=== PATIENT | female | born 1970 ===

== ENCOUNTER 2024-06-18 06:16 | Day surgery (SDC) | payer OTHER, SELFPAY ==
[2024-06-18 07:07] VITALS: BP 113/55
[2024-06-18 07:18] VITALS: BMI 21.0
[2024-06-18 08:10] VITALS: BP 91/50
[2024-06-18 08:25] VITALS: BP 99/53
[2024-06-18 08:40] VITALS: BP 94/50
== END 2024-06-18 08:48 | disposition home or self-care (01) ==
LOC: GI 06:16
PROVIDERS: ATTENDING PHYSICIAN Internal Medicine Gastroenterology
DX: Z12.11 Encounter for screening for malignant neoplasm of colon (principal); D12.5 Benign neoplasm of sigmoid colon; Z86.010 Personal history of colon polyps; Z98.890 Other specified postprocedural states
CPT/HCPCS: 45331; 88305

== ENCOUNTER 2025-08-18 21:04 | Inpatient (IN) | payer OTHER, SELFPAY ==
[2025-08-18 15:31] VITALS: BMI 18.5
[2025-08-18 15:46] LABS: Hematocrit 38.4 % (37.0-47.0); Hemoglobin 13.7 g/dL (12.0-16.0); Mean Corp Hgb Conc. 35.7 g/dL (33.0-37.0); Mean Corpuscular Volume 96.7 fL (81.0-99.0); Nucleated Red Blood Cells % 0 %; Platelet Count 266 10^3/uL (130-400); Red Cell Dist. Width 12.5 % (11.5-14.5)
[2025-08-18 16:02] LABS: ALT (SGPT) 16 U/L (0-35); AST (SGOT) 18 U/L (14-36); Albumin 3.9 g/dl (3.5-5.0); Alkaline Phosphatase 61 U/L (38-126); Calcium 9.6 mg/dl (8.4-10.2); Carbon Dioxide 23 mmol/L (22-30); Chloride 96 mmol/L (98-107); Glucose 126 mg/dl (70-99); Lipase 41 U/L (23-300); Potassium 4.2 mmol/L (3.5-5.1); Sodium 133 mmol/L (135-145); Total Protein 7.0 g/dl (6.3-8.2); eGFR > 60.00
[2025-08-18 16:12] LABS: Blood Urea Nitrogen 14 mg/dl (7-17)
[2025-08-18] MEDS: TORADOL 15 MG IV (16:55)
[2025-08-18] MEDS: NSS 1000 IV ×2 (17:00→22:39)
[2025-08-18] MEDS: ZOFRAN 4 MG IV (17:01)
[2025-08-18 17:06] VITALS: BP 136/77
[2025-08-18 18:09] VITALS: BP 119/64
--- NOTE | 2025-08-18 18:39 | ED.GENMED ---
History of Present Illness
<Danica Savage PA-C - Last Filed: 08/19/25 11:11>
General
Chief Complaint: Abdominal Symptoms
Source: patient
Exam Limitations: none
Time Seen by Provider: 08/18/25 16:41
Nursing documentation reviewed up to this point in time: agreed with
History of Present Illness
History of Present Illness:
Patient is a healthy 54-year-old female who presents to the emergency department for evaluation of 4 days of abdominal pain associated with nausea and vomiting. Symptoms began Saturday night with nausea, dry heaves, diffuse abdominal pain, and
fever. She states that over the weekend she had a temp of up to 102 however this has since resolved. She describes persistent nausea and dry heaves, unable to keep any food/liquid down.
While fever has improved, patient reports persistent abdominal pain throughout her entire abdomen. This morning, she started with a few episodes of nonbloody diarrhea. She has had very little appetite over the past few days.
She denies any urinary symptoms. No chest pain or shortness of breath.
Patient initially thought she had a viral GI illness however given severity and persistence of symptoms she presented to the emergency department for further evaluation.
Review of Systems
<Danica Savage PA-C - Last Filed: 08/19/25 11:11>
Review of Systems
Allergies reviewed?: Yes
All Other Systems: ROS reviewed and negative except as documented in HPI and ROS
Phy Exam
<Danica Savage PA-C - Last Filed: 08/19/25 11:11>
Physical Exam
Physical Exam:
Vitals: Patient's vital signs are stable. Afebrile
General: Patient is moderately uncomfortable appearing due to pain. Nontoxic
Skin: Warm and dry, no rashes or lesions
Head: Normocephalic, atraumatic
Eyes: Sclera nonicteric.
Throat: Protecting airway
Neck: Normal ROM, no cervical spine tenderness, no meningismus
Cardiac: Regular rate and rhythm, no murmurs.
Pulm: Normal respiratory effort, no wheezes, rales, rhonchi heard on exam
Abdomen: Abdomen soft. Diffuse tenderness throughout abdomen with voluntary guarding. No rebound tenderness
Extremities: No evidence of cyanosis or edema
Neuro: AAOx3. Grossly intact
Psychiatric: Normal affect.
Course
<Danica Savage PA-C - Last Filed: 08/19/25 11:11>
Orders/Labs/Results
Orders:
Orders
08/18/25 Breakfast
NPO
Allow oral meds: No
Allow clear liquids: Sips of Clears
NPO with Ice Chips: Yes
08/18/25 15:41
Complete Blood Count/With Diff Urgent
Comprehensive Metabolic Panel Urgent
Lipase Urgent
08/18/25 16:50
CT Abd/pelvis W Iv Cont Urgent
Comment:
Reason For Exam: Abdominal pain, N/V
0.9% Sodium Chloride 1000 ml [Nss] 1,000 ml IV BOLUS
Ketorolac [Toradol] 15 mg IV NOW STA
Ondansetron Injectable [Zofran] 4 mg IV NOW STA
08/18/25 18:57
Lactic Acid Q4H
Comment: CANCEL 2nd LACTIC ACID IF 1st LACTIC ACID IS LESS THAN 2
08/18/25 19:10
Urinalysis Reflex To Culture Urgent
Date Specimen was Collected: 08/18/25
Time Specimen was Collected: 19:03
Urine Microscopic Reflex Cult Urgent
08/18/25 19:49
Morphine Sulfate 2 mg IV NOW STA
08/18/25 20:18
Norovirus by PCR Urgent
IQRA Source: Feces/Stool
Specimen Description:
Stool Culture Urgent
IQRA Source: Feces/Stool
Specimen Description:
08/18/25 20:37
Admit/Transfer Patient As Directed
Co-Sign Provider:
Level of Care: Inpatient admission
Assign to:: Medical/Surgical
Physician / Group: Rudy
Diagnosis: Enteritis / Ileus
Reason for Hospitalization: IVFs
Expected length of stay greater than two midnights?: Yes
ELOS- Estimated Length of Stay in days: 3
I certify the patient meets the requirements for IP care: Yes
PRN Pain Medication Management As Directed
May give lesser potent ordered pain med per pt: Yes
preference::
Protocol:: Medication orders for pain may be administered in a
manner that supports deferring to patient preference
when the pt is:
- Requesting an ordered lesser potent pain medication.
Least to most potent pain medications are defined
as: acetaminophen < NSAID < tramadol < opioids
(morphine, oxycodone, hydromorphone).
- Requesting a lesser dose of the same medication IF
ORDERED.
- Requesting a less intrusive route of administration
if both routes are prescribed by the provider (PO <
IV).
08/18/25 20:38
Code Status As Directed
Resuscitation Status: Full Code
08/18/25 21:49
0.9% Sodium Chloride 1000 ml [Nss] 1,000 ml IV 125 mls/hr
Acetaminophen [Tylenol] 650 mg PO Q4HPRN PRN
Ketorolac [Toradol] 10 mg IV Q6HPRN PRN
Morphine Sulfate 2 mg IV Q4HPRN PRN
Ondansetron Injectable [Zofran] 4 mg IV Q6HPRN PRN
08/18/25 21:49
Activity As Directed
Activity Level: Out of Bed-Early Mobility
With Assistance
Bladder Scan As Directed
Follow Bladder Retention/Intermittent Cath Algorithm?: Yes
PRN if no void in __ hours: 6
Frequency: Per Retention Algorithm
If Bladder Scan Result >: 400
then:: Straight cath
I&O [Intake/ Output] As Directed
Frequency: q12h
Straight Cath As Directed
Frequency: Per Retention Algorithm
Additional Instructions: straight cath as needed per acute urinary retention algorithm for 24 hrs
Additional Instructions: for bladder scan greater than 400 mL
DX Deep Vein Thrombosis Video Routine
08/19/25 06:37
Basic Metabolic Panel IN AM
Complete Blood Count/No Diff IN AM
08/19/25 18:00
Enoxaparin Sodium [Lovenox] 40 mg SC QPM
Abnormal Lab Results
08/18/25 08/18/25
15:41 19:10
RBC 3.97 L 10^6/uL
(4.20-5.40)
MCH 34.5 H pg
(27.0-31.0)
Absolute Neuts (auto) 7.2 H 10^3/uL
(1.4-6.5)
Absolute Lymphs (auto) 0.6 L 10^3/uL
(1.2-3.4)
Neutrophils % 85.3 H %
(42.2-75.2)
Lymphocytes % 6.7 L %
(20.5-51.1)
Sodium 133 L mmol/L
(135-145)
Chloride 96 L mmol/L
(98-107)
Creatinine 0.5 L mg/dL
(0.6-1.0)
Glucose 126 H mg/dl
(70-99)
Urine Ketones 3+ A
(Negative)
Urine Bacteria (Reflex) Few A
(Negative)
Urine Albumin (Reflex) 3+ A
(Neg - Trace)
08/18/25 15:41
08/18/25 15:41
Vital Signs
Initial and Last Documented VS:
Initial Vital Signs
Temp Pulse Resp Pulse Ox
98.3 F 77 16 99
08/18/25 15:32 08/18/25 15:32 08/18/25 15:32 08/18/25 15:32
Last Documented Vital Signs
Temp Pulse Resp BP Pulse Ox
98.6 F 58 16 125/64 98
08/19/25 07:00 08/19/25 07:00 08/19/25 07:00 08/19/25 07:00 08/19/25 07:00
<Merced Witt, DO - Last Filed: 08/18/25 19:54>
Orders/Labs/Results
Orders:
Orders
08/18/25 Breakfast
NPO
Allow oral meds: No
Allow clear liquids: Sips of Clears
NPO with Ice Chips: Yes
08/18/25 15:41
Complete Blood Count/With Diff Urgent
Comprehensive Metabolic Panel Urgent
Lipase Urgent
08/18/25 16:50
CT Abd/pelvis W Iv Cont Urgent
Comment:
Reason For Exam: Abdominal pain, N/V
0.9% Sodium Chloride 1000 ml [Nss] 1,000 ml IV BOLUS
Ketorolac [Toradol] 15 mg IV NOW STA
Ondansetron Injectable [Zofran] 4 mg IV NOW STA
08/18/25 18:57
Lactic Acid Q4H
Comment: CANCEL 2nd LACTIC ACID IF 1st LACTIC ACID IS LESS THAN 2
08/18/25 19:10
Urinalysis Reflex To Culture Urgent
Date Specimen was Collected: 08/18/25
Time Specimen was Collected: 19:03
Urine Microscopic Reflex Cult Urgent
08/18/25 19:49
Morphine Sulfate 2 mg IV NOW STA
08/18/25 20:18
Norovirus by PCR Urgent
IQRA Source: Feces/Stool
Specimen Description:
Stool Culture Urgent
IQRA Source: Feces/Stool
Specimen Description:
08/18/25 20:37
Admit/Transfer Patient As Directed
Co-Sign Provider:
Level of Care: Inpatient admission
Assign to:: Medical/Surgical
Physician / Group: Rudy
Diagnosis: Enteritis / Ileus
Reason for Hospitalization: IVFs
Expected length of stay greater than two midnights?: Yes
ELOS- Estimated Length of Stay in days: 3
I certify the patient meets the requirements for IP care: Yes
PRN Pain Medication Management As Directed
May give lesser potent ordered pain med per pt: Yes
preference::
Protocol:: Medication orders for pain may be administered in a
manner that supports deferring to patient preference
when the pt is:
- Requesting an ordered lesser potent pain medication.
Least to most potent pain medications are defined
as: acetaminophen < NSAID < tramadol < opioids
(morphine, oxycodone, hydromorphone).
- Requesting a lesser dose of the same medication IF
ORDERED.
- Requesting a less intrusive route of administration
if both routes are prescribed by the provider (PO <
IV).
08/18/25 20:38
Code Status As Directed
Resuscitation Status: Full Code
08/18/25 21:49
0.9% Sodium Chloride 1000 ml [Nss] 1,000 ml IV 125 mls/hr
Acetaminophen [Tylenol] 650 mg PO Q4HPRN PRN
Ketorolac [Toradol] 10 mg IV Q6HPRN PRN
Morphine Sulfate 2 mg IV Q4HPRN PRN
Ondansetron Injectable [Zofran] 4 mg IV Q6HPRN PRN
08/18/25 21:49
Activity As Directed
Activity Level: Out of Bed-Early Mobility
With Assistance
Bladder Scan As Directed
Follow Bladder Retention/Intermittent Cath Algorithm?: Yes
PRN if no void in __ hours: 6
Frequency: Per Retention Algorithm
If Bladder Scan Result >: 400
then:: Straight cath
I&O [Intake/ Output] As Directed
Frequency: q12h
Straight Cath As Directed
Frequency: Per Retention Algorithm
Additional Instructions: straight cath as needed per acute urinary retention algorithm for 24 hrs
Additional Instructions: for bladder scan greater than 400 mL
DX Deep Vein Thrombosis Video Routine
08/19/25 06:37
Basic Metabolic Panel IN AM
Complete Blood Count/No Diff IN AM
08/19/25 18:00
Enoxaparin Sodium [Lovenox] 40 mg SC QPM
Abnormal Lab Results
08/18/25 08/18/25
15:41 19:10
RBC 3.97 L 10^6/uL
(4.20-5.40)
MCH 34.5 H pg
(27.0-31.0)
Absolute Neuts (auto) 7.2 H 10^3/uL
(1.4-6.5)
Absolute Lymphs (auto) 0.6 L 10^3/uL
(1.2-3.4)
Neutrophils % 85.3 H %
(42.2-75.2)
Lymphocytes % 6.7 L %
(20.5-51.1)
Sodium 133 L mmol/L
(135-145)
Chloride 96 L mmol/L
(98-107)
Creatinine 0.5 L mg/dL
(0.6-1.0)
Glucose 126 H mg/dl
(70-99)
Urine Ketones 3+ A
(Negative)
Urine Bacteria (Reflex) Few A
(Negative)
Urine Albumin (Reflex) 3+ A
(Neg - Trace)
08/18/25 15:41
08/18/25 15:41
Vital Signs
Initial and Last Documented VS:
Initial Vital Signs
Temp Pulse Resp Pulse Ox
98.3 F 77 16 99
08/18/25 15:32 08/18/25 15:32 08/18/25 15:32 08/18/25 15:32
Last Documented Vital Signs
Temp Pulse Resp BP Pulse Ox
98.6 F 58 16 125/64 98
08/19/25 07:00 08/19/25 07:00 08/19/25 07:00 08/19/25 07:00 08/19/25 07:00
<Danica Savage PA-C - Last Filed: 08/19/25 11:11>
MDM/Problems Addressed
Differential Diagnosis Includes:
Not limited to: Viral gastroenteritis, diverticulitis, appendicitis, acute cholecystitis, pyelonephritis, bowel obstruction, etc.
MDM/Problems Addressed:
54-year-old female presenting with four days of diffuse abdominal pain associated with nausea, vomiting, fevers at home. Unable to tolerate PO intake. She did begin with diarrhea this morning. No urinary symptoms. Vitals and physical exam as above.
Patient actively retching on my initial evaluation and appears uncomfortable. Her abdomen is soft with minimal distention and somewhat diffuse tenderness. Cardio/pulmonary assessment unremarkable.
Differential broad. Given history of fever � concern for possible intra-abdominal infectious process. Also considered viral gastroenteritis or food poisoning. Less likely bowel obstruction.
ED plan: labs, UA, CT scan abdomen/pelvis with IV contrast. Patient unable to tolerate PO contrast at this time. Will treat pain, give IV fluids and Zofran and reassess.
Update: labs without clinically significant abnormalities. No leukocytosis. Chemistry unremarkable. CT scan with evidence of small bowel dilation/inflammation possibly inflammatory, infectious, ischemic in nature with possible ileus or developing
SBO.
With history of fever � most suspicious for likely infectious etiology, less likely ischemic, however, will add lactic acid level.
I did discuss with general surgery. Given patient�s persistent level of discomfort, as well as inability to tolerate PO intake � will admit to hospitalist for further management. Patient has been afebrile here without leukocytosis, will hold
antibiotics at this time. Patient accepted to hospitalist service in stable condition.
Chronic conditions affecting care:
N/A
Acute Exacerbation and/or Progression of Chronic Illness:
N/A
<Danica Savage PA-C - Last Filed: 08/19/25 11:11>
*Radiology
Radiology exam reviewed: radiology read reviewed
*Pulse Oximetry
SaO2: 99
Oxygen Mode of Delivery: Room air
Patient hypoxic: no
*EKG
Interpreted by ED Provider?: NA
*Joiners Supervisor Interpretation
Rate: Joiners Supervisor- N/A
*Critical Care Note
Total Time (30-74mins, 75-104mins- exclusive of procedures): Not Applicable
<Danica Savage PA-C - Last Filed: 08/19/25 11:11>
Patient Management
Discussion with other providers: Hospitalist and Internet Systems Administrator (Case discussed with general surgery)
ED Attending Note
<Danica Savage PA-C - Last Filed: 08/19/25 11:11>
-
Portions of this chart may have been created with voice recognition software.� Occasional wrong word or��sound alike� substitutions may have occurred due to the inherent limitations of voice recognition software.
<Merced Witt DO - Last Filed: 08/18/25 19:54>
ED Attending Note
Patient seen and examined by attending physician: Yes
I performed the substantive portion of visit, reviewed & personally made and approve the management plan that is documented in note by myself or TARAH.: Yes
I performed a history and physical exam of patient and discussed management with resident, I reviewed resident's note and agree with documented findings and plan of care.: Yes
ED Attending Note:
54-year-old female presenting to the emergency department for abdominal pain and vomiting. Patient reports symptoms started about 5 days ago with nausea and vomiting. Notes diffuse tenderness, and diarrhea started today. Reports no significant
abdominal surgical history, however does report remote history of bowel obstruction that went away on its own. At onset of symptoms, had fever which is since resolved. Vital signs are normal.
On exam, patient is nontoxic, no acute distress, however is uncomfortable secondary to pain. Generalized tenderness to the abdomen, nonfocal with minimal distention. Patient initially seen by physician food and beverage assistant, appropriate workup with laboratory
analysis and CT abdominal imaging. CT is concerning for several loops of abnormal small bowel with wall thickening concerning for inflammation versus ischemia versus infection versus developing obstruction. Did discuss with surgery, recommending
to hold antibiotics, admit to hospitalist for continued abdominal exams and monitoring as well as pain control. On my assessment, patient still having pain, will administer morphine. No rigidity to abdomen, again nontoxic with lower suspicion for
ischemic bowel. Otherwise hemodynamically stable
Discharge Plan
Departure
Patient Disposition: Admit
Date of Disposition: 08/18/25
Time of Disposition: 19:44
Presentation/result/management discussed w/ accepting MD/DO: Hospitalist
Discharge Problem:
Abdominal pain
Interventions
Interventions:
*Risk Screen - Suicide Last Done: 08/18/25 21:59
*General Assessment Last Done: 08/18/25 15:32
*Neglect/Abuse Screening Last Done: 08/18/25 15:32
*ED- Fall Risk Assessment Last Done: 08/18/25 17:09
*ED COVID-19 Vaccine History Last Done: 08/18/25 21:59
*Nursing Disposition Last Done: 08/18/25 22:02
CA-Iahlqf-Pvijnmajyb Assessment Last Done: 08/18/25 17:08
[2025-08-18 19:20] VITALS: BP 116/63
[2025-08-18 19:24] LABS: Urine Character Clear (Clear)
[2025-08-18 19:36] LABS: Urine Red Blood Cell 0-2 /HPF (0-2); Urine Squamous Cell 0-2 /LPF (Few); Urine White Cell 0-2 /HPF (0-5)
[2025-08-18 19:44] VITALS: BP 116/63
[2025-08-18] MEDS: MORPHINE SULFATE 2 MG IV (19:55)
--- NOTE | 2025-08-18 20:01 | HPS.HSE ---
Addendum entered and electronically signed by Roland Grant DO 08/18/25 22:06:
Patient seen and examined independently. Agree with findings and plan as set forth by Aurelia Davis PA-C.
Patient is a 54y F with PMH significant for psoriasis who presents to ED complaining of abdominal pain, nausea and dry heaves. Patient states that symptoms started about 4 days ago. She reports eating some 'questionable' food over the weekend
at an outdoor event. She has had nausea with dry heaves / retching but no actual emesis. Generalized crampy abdominal discomfort. She had a small amount of non-bloody, loose stools - but no profuse diarrhea. No fevers / chills. No known sick
contacts.
Ass:
Enteritis +/- Ileus
Mild Hyponatremia
Psoriasis
Plan:
Admit for further evaluation and treatment.
NPO, IVFs, antiemetics and pain control.
Check stool studies if further diarrhea.
Follow temperature curve and monitor for changes in abdominal exam.
Original Note:
Family Physician
-
Family Physician: Ruma Loza DO
Chief Complaint
-
Abdominal Pain
History of Present Illness
Patient is a 54 y/o female without significant past medical history who presents with abdominal pain and dry heaves. Patient reports symptoms started about 4 days ago with diffuse abdominal pain, nausea and dry heaves. She admits to associated
non-bloody diarrhea a few days ago but no recent episodes. She reports fevers as high as 102F which have improved. However her abdominal distention, and abdominal pain has persisted prompting her to come to the emergency department for evaluation.
She consumed some questionable food intake over the weekend while a horse event. She denies recent travel or recent antibiotics.
Medical History
Past Medical History
Past Medical History: Reports Other
Additional Past Medical History:
Psoriasis / Psoriatic Arthritis
Past Surgical History: Reports Other
Additional Past Surgical History:
Breast Augmentation
Sigmoid Polypectomy
Social History
Tobacco: Non-smoker
Alcohol: None
Family History
Family History: Not pertinent
Allergies / Home Medications
Allergies reflects when Allergies were last updated in [employer].
Home Medications with original date entered in [employer]
Allergy/Medication List:
Allergies
Allergy/AdvReac Type Severity Reaction Status Date / Time
cefadroxil (From Duricef) Allergy Unknown Verified 08/18/25 15:36
duricef Allergy Unknown Uncoded 08/18/25 15:36
Home Medications
No Meds [No Current Medications] 08/18/25
Review of Systems
-
History Source: Patient
Constitutional: Reports Fever
Respiratory: Denies Cough or Trouble Breathing
Cardiac: Denies Chest Pain or Palpitations
Abdomen/GI: Reports See HPI
Physical Exam
Vital Signs
Vital Signs
Temp Pulse Resp BP Pulse Ox
99 F 76 18 116/63 99
08/18/25 17:06 08/18/25 19:44 08/18/25 19:44 08/18/25 19:44 08/18/25 19:44
Physical Exam
General: Comfortable and Conversant
HEENT: Anicteric and Moist mucous membranes
Respiratory: Clear and Non Labored Respirations
Cardiac: S1/S2 and Regular Rhythm
GI: Tender (Mild tenderness in upper quadrants, and Moderate tenderness in lower quadrants; Voluntary guarding in lower quadrants ) and Distended
Genito-urinary: Clear Urine
Musculoskeletal: No Clubbing and No Cyanosis
Skin: Warm and Dry
Neuro: Awake, Alert, Oriented and Nonfocal/grossly intact
Psych: Calm
Laboratory Results
-
08/18/25 15:41
08/18/25 15:41
Laboratory Results
Lactic Acid 0.9 mmol/L (0.7-2.0) 08/18/25 18:57
Total Bilirubin 0.9 mg/dl (0.2-1.3) 08/18/25 15:41
AST 18 U/L (14-36) 08/18/25 15:41
ALT 16 U/L (0-35) 08/18/25 15:41
Alkaline Phosphatase 61 U/L (38-126) 08/18/25 15:41
Lipase 41 U/L (23-300) 08/18/25 15:41
Abd/Pelvis CT:
Several loops of abnormal small bowel with wall thickening concerning for inflammation, infection or ischemia. Developing obstruction cannot be excluded. Dilatation may also be due to ileus. Limited evaluation without oral contrast.
Associated edematous intraperitoneal fat and mild free fluid. Omental caking cannot be excluded
Data Reviewed
-
Lab Data: Labs Reviewed by me
Impression/Plan
-
Small Bowel Enteritis / Ileus
-Continue NPO with allow sips/chips
-Continue IVFs
-Continue Zofran prn
-Continue Tylenol for mild pain, Toradol for moderate pain, and Morphine for severe pain
-Attempt to obtain stool studies
Hyponatremia, mild
-Continue IVFs
-Recheck sodium AM
DVT proph: Lovenox
Code Status: Full Code
--- NOTE | 2025-08-18 21:50 | PTCARENOTE ---
Patient received on unit as admission from emergency room. Patient able to ambulate from transport stretcher to bed under own power with no assistance. Endorses moderate pain in the abdomen. Denies shortness of breath at this time. IV fluids started
as ordered.
[2025-08-18] MEDS: TORADOL 10 MG IV (22:55)
[2025-08-18 23:10] VITALS: BP 130/72; BMI 19.7
[2025-08-19] MEDS: ZOFRAN 4 MG IV ×4 (01:06→20:48)
[2025-08-19] MEDS: MORPHINE SULFATE 2 MG IV (01:17)
[2025-08-19] MEDS: TYLENOL 650 MG PO ×4 (04:01→19:44)
[2025-08-19] MEDS: TORADOL 10 MG IV ×2 (06:30→13:00)
[2025-08-19] MEDS: NSS 1000 IV ×3 (06:35→21:49)
[2025-08-19 07:00] VITALS: BP 125/64
[2025-08-19 07:29] LABS: Hematocrit 35.6 % (37.0-47.0); Hemoglobin 12.6 g/dL (12.0-16.0); Mean Corp Hgb Conc. 35.4 g/dL (33.0-37.0); Mean Corpuscular Volume 97.0 fL (81.0-99.0); Platelet Count 255 10^3/uL (130-400); Red Cell Dist. Width 12.6 % (11.5-14.5)
[2025-08-19 07:52] LABS: Blood Urea Nitrogen 15 mg/dl (7-17); Calcium 9.0 mg/dl (8.4-10.2); Carbon Dioxide 21 mmol/L (22-30); Chloride 104 mmol/L (98-107); Estimated Creatinine Clearance 95 ml/min; Glucose 112 mg/dl (70-99); Potassium 4.2 mmol/L (3.5-5.1); Sodium 135 mmol/L (135-145); eGFR > 60.00
--- NOTE | 2025-08-19 10:36 | W.PN.HOSP.TC ---
Today's Communication/Plan
-
Assessment / Plan
Assessment / Plan
General: No Apparent Distress, Conversant
HEENT: NormoCephalic, Moist mucous membranes, Atraumatic
Respiratory: Clear and Non Labored Respirations
Cardiac: S1/S2 and Regular Rhythm; No Rub or Gallop
GI: Soft, generalized TTP, mildly distended, decreased bowel sounds
Musculoskeletal: No Edema, no deformity
Skin: Warm and dry
: NO [place]
Neuro: Awake, Alert, Nonfocal/grossly intact
Psych: Calm and Intact Judgment/Insight
Ms. Dueñas is a 54-year-old female with no significant medical history other than IBS many years ago and what sounds like possible ileus (also many years ago) who presents with abdominal distention, abdominal pain, and nausea with dry heaving. Her
symptoms began on Saturday (approximate 4 days prior to arrival). She had some nonbloody diarrhea initially at the time of symptom onset which has since resolved. She also reports fevers at home up to 102 �F. She denies any recent sick contacts.
She had some appetizers while out of the bed over the weekend but does not think she ate anything unusual. In the ED she was afebrile and normotensive. Her labs were generally unremarkable other than a mild hyponatremia of 133. CT imaging of her
abdomen and pelvis with IV contrast showed several dilated loops of small bowel with wall thickening concerning for inflammation, developing obstruction could not be excluded but could also be due to ileus. She was started on supportive care with
IV fluids and antiemetics and has been admitted for further evaluation and management.
Abdominal pain and distention:
- Suspect enteritis with ileus, possibly due to acute viral illness, will need to continue to monitor for developing SBO
- Continue supportive care with IV fluids antiemetics, pain control as needed but avoid opiates if able
- To be evaluated by surgery
- N.p.o. except for sips and chips
- Stool studies to further episodes of diarrhea
Hyponatremia:
- Mild, resolved
- Monitor
DVT prophylaxis: Lovenox
CODE STATUS: Full code
Total time spent on today's encounter was 47 minutes
Anticipated Discharge: 24 - 48 hours
Subjective/Interval History
-
Date of Service: August 19, 2025
Patient was seen and examined at bedside this morning. Still has significant abdominal distention and discomfort. Also having nausea with intermittent dry heaves. No bowel movements and minimal flatus.
Objective Data
-
Labs:
Laboratory Results
08/19/25
06:37
WBC 7.1
Hgb 12.6
Hct 35.6 L
Plt Count 255
Sodium 135
Potassium 4.2
Chloride 104
Carbon Dioxide 21 L
BUN 15
Creatinine 0.5 L
Glucose 112 H
Calcium 9.0
Vital Signs:
Vital Signs
Temp Pulse Resp BP Pulse Ox
98.6 F 58 16 125/64 98
08/19/25 07:00 08/19/25 07:00 08/19/25 07:00 08/19/25 07:00 08/19/25 07:00
I&O
08/18/25 08/19/25 08/20/25
06:59 06:59 06:59
Intake Total 1000 / 1000
Balance 1000 / 1000
Review of Systems
-
History Source: Patient
All other systems: Reviewed and negative
Abdomen/GI: Reports Abdominal Pain, Nausea and Bloated
Physical Exam
-
General: No Apparent Distress
[2025-08-19] MEDS: TIGAN 200 MG IM (10:41)
[2025-08-19 15:00] VITALS: BP 131/74
--- NOTE | 2025-08-19 15:09 | CM ---
Alert awake oriented patient who lives alone in condo home with 3 steps to enter.She is independent in activates of daily living.She does drive .She uses no adaptive devices.Offered Vn she declined.
No VN in past . No SNF hx
Pharmacy [facility] [place]
PCP Dr Loza
PLAN Home with no needs
[2025-08-19] MEDS: LOVENOX 40 MG SC (17:53)
--- NOTE | 2025-08-19 18:26 | W.PN.UPDATE ---
Update Note
Progress Note Update
seen and examined the patient for distended abdomen.
She was admitted with abd pain, and nausea. More pressure now. No diarrhea nbow. Symptoms started almost a week ago. No fevers now.
' Ct 08/18/25' Several loops of abnormal small bowel with wall thickening concerning for inflammation, infection or ischemia. Developing obstruction cannot be excluded. Dilatation may also be due to ileus. Limited evaluation without oral
contrast.Associated edematous intraperitoneal fat and mild free fluid. Omental caking cannot be excluded.Bilateral too small to hypodense renal lesions likely benign cysts.'
OE AAO3
Abd distended and firm
I could not elicit a bowel sound.
No peritoneal signs, but over all distended and firm
Pt feels a pressure.
No flatus
Plan
Get a stat X ray
If SBO, needs NGT decompression( Discussed with pt)
NPO with IVF
If has a fever will need AB- Holding off as WBC count OK and no fever and normal lactate.
Surgical consultation.
D/W RN
--- NOTE | 2025-08-19 19:03 | W.PN.UPDATE ---
Update Note
Progress Note Update
X ray reviewed by me . Distended stomach and air fluid levels
NGT ordered
D/W Surgeon
D/W Nursing
[2025-08-19] MEDS: LIDOCAINE URO-JET 2% 1 SYRINGE TOPICAL ×2 (19:44→22:15)
--- NOTE | 2025-08-19 21:11 | PTCARENOTE ---
Pt wants to wait until the morning.
[2025-08-19] MEDS: VALIUM INJECTION 2 MG IV (22:26)
--- NOTE | 2025-08-19 22:26 | W.PN.UPDATE ---
Update Note
Progress Note Update
Multiple attempts to place NG tube by RN and JUSTOWRITER OPERATOR. Appreciate assistance from WINE PASTEURIZER's who successfully place NG tube in left nare, with immediate drainage of approximately 1L of green liquid in canister.
--- NOTE | 2025-08-19 22:37 | PTCARENOTE ---
16Fr NGT placed in L nare, immediate output >700ml brown/green. Placed to LIWS.
[2025-08-19] MEDS: COMPAZINE 5 MG IV (22:40)
[2025-08-19 23:00] VITALS: BP 140/84
[2025-08-20] MEDS: ANESTHETIC LOZENGE 1 LOZENGE PO ×5 (00:54→21:14)
[2025-08-20] MEDS: TYLENOL 650 MG PO (02:16)
[2025-08-20 06:23] LABS: Hematocrit 33.3 % (37.0-47.0); Hemoglobin 11.9 g/dL (12.0-16.0); Mean Corp Hgb Conc. 35.7 g/dL (33.0-37.0); Mean Corpuscular Volume 96.5 fL (81.0-99.0); Platelet Count 268 10^3/uL (130-400); Red Cell Dist. Width 12.6 % (11.5-14.5)
[2025-08-20 06:47] LABS: Blood Urea Nitrogen 11 mg/dl (7-17); Calcium 8.6 mg/dl (8.4-10.2); Carbon Dioxide 24 mmol/L (22-30); Chloride 104 mmol/L (98-107); Estimated Creatinine Clearance 95 ml/min; Glucose 103 mg/dl (70-99); Magnesium 1.8 mg/dl (1.6-2.3); Potassium 3.7 mmol/L (3.5-5.1); Sodium 139 mmol/L (135-145); eGFR > 60.00
[2025-08-20 06:55] LABS: Nucleated Red Blood Cells % 0 %
[2025-08-20 07:00] VITALS: BP 121/71
[2025-08-20] MEDS: D5/0.45%NACL 1000 IV (07:48)
[2025-08-20] MEDS: OFIRMEV 100 IV ×2 (10:14→15:41)
[2025-08-20] MEDS: PROTONIX IV 40 MG IV (11:05)
[2025-08-20] MEDS: NSS (PRESERVATIVE FREE) 10 ML IV (11:05)
[2025-08-20] MEDS: VALIUM INJECTION 2 MG IV ×2 (11:13→19:41)
[2025-08-20] MEDS: NSS IV (11:16)
--- NOTE | 2025-08-20 11:23 | CON.GS ---
Addendum entered and electronically signed by Hang Sutherland MD 08/20/25 13:03:
I was physically present and personally performed the laguna portions of the surgical evaluation and/or procedure with the resident. I discussed the findings, reviewed the resident�s note, and confirmed the medical decision-making. I provided direct
supervision as required and agree with the assessment and plan as documented with the following additions/corrections:
Feels the same, nausea improved with NGT to suction, denies flatus, AFVSS, leukopenia (mild) noted, CT with long segment small bowel with wall edema and hyperenhancement, suspect severe gastroenteritis with obstructive component. Rec GI consult.
NGT/NPO for now. Stool studies pending. GS will follow.
Original Note:
Consultation
-
Date/Time Consultation Requested: 08/19/2025 18:26
Date/Time Consultation Performed: 08/20/2025 09:30
Requesting Provider: Elana Ortiz MD
Performing Provider: Hang Sutherladn MD, Tiffany Clarke MD
Reason for Consultation: Abdominal distention, possible SBO
Medical History
-
Chief Complaint: Abdominal pain, abdominal distention
History of Present Illness:
The patient is a 54-year-old female with a past medical history of psoriatic arthritis, remote irritable bowel syndrome and gastroesophageal reflux disease, and unspecified thyroid issues. Past surgical history of sigmoid polypectomy and breast
augmentation. She presents with diffuse abdominal pain associated with nausea and abdominal distension.
Her symptoms began Saturday night with the onset of diffuse abdominal pain, abdominal distension, anorexia, and nausea. She later developed a fever on Saturday night and experienced one episode of non-bloody diarrhea on Saturday. Worsening and
persistence of abdominal pain and distension prompted the patient to seek further evaluation in the emergency department.
She reports having similar pain in May. She also has a history of episodic, crampy abdominal pain localized to the lateral lower quadrants over the past several years, which she previously attributed to stress. She also recalls attending an event
over the weekend where she ate kind bars and coconut clusters. No known sick contacts. She denies weight loss or vomiting.
WBC: non elevated at presentation, leukopenic today, mild left shift
CT showed: several severely abnormal loops of small bowel with moderate circumferential bowel wall thickening and enhancement mostly proximal and mid jejunum; also dilated. The largest measures 4.1 cm. stomach is severely distended. Distal jejunum
shows mild bowel wall thickening and enhancement. Edematous intraperitoneal fat and mild free fluid.
Past Medical History
Past Medical History: GERD (remote) and Other (IBS (remote), psoriatic arthritis, unspecified thyroid issues)
Past Surgical History: Other (Sigmoid polypectomy, breast augmentation)
Social History
Tobacco: Non-Smoker
Alcohol: None
Drug: None
Personal: Single
Living: Alone
Family History
Family History: Reviewed & Not Pertinent
Allergies / Home Medications
Allergy/AdvReac Type Severity Reaction Status Date / Time
cefadroxil (From [employer]) Allergy facial Verified 08/18/25 21:50
spasms
�Medication �Instructions �Recorded �Confirmed �Type
No Meds [No Current Medications] 08/18/25 08/18/25 History
Review of Systems
-
History Source: Patient
A 10 point review of systems was completed, and was negative except as per HPI.
Physical Exam
Vital Signs
Temp Pulse Resp BP Pulse Ox
98.0 F 73 16 121/71 97
08/20/25 07:00 08/20/25 07:00 08/20/25 07:00 08/20/25 07:00 08/20/25 07:00
08/19/25 08/20/25 08/21/25
06:59 06:59 06:59
Actual Weight 55.338 kg
Body Mass Index (BMI) 19.7
Lab Results
08/20/25 05:51
08/20/25 05:51
WBC 3.6 10^3/uL (4.8-10.8) L 08/20/25 05:51
Hgb 11.9 g/dL (12.0-16.0) L 08/20/25 05:51
Hct 33.3 % (37.0-47.0) L 08/20/25 05:51
Plt Count 268 10^3/uL (130-400) 08/20/25 05:51
Abs Immat Gran (auto) 0.0 10^3/uL (0-0.05) 08/20/25 05:51
Neutrophils % 62.3 % (42.2-75.2) 08/20/25 05:51
Physical Exam
General: No Apparent Distress and Other (on NG tube); Negative Fever
HEENT: Normocephalic
Respiratory: Non Labored Respirations
GI: Soft, Tender (Diffusely tender) and Distended
Skin: Warm
Neuro: AO x 3
Data Reviewed
-
CT Scan: Image Personally Visualized and interpreted (by attending surgeon), Report Reviewed by me (and by attending surgeon) and Discussed with Patient (by attending surgeon)
Assessment / Plan
-
The patient is a 54-year-old female with a past medical history of psoriatic arthritis, remote irritable bowel syndrome and gastroesophageal reflux disease, and unspecified thyroid issues. Past surgical history of sigmoid polypectomy and breast
augmentation. She presents with diffuse abdominal pain associated with abdominal pain, nausea, fever, anorexia, non-bloody diarrhea, and abdominal distension.
WBC: non elevated at presentation, leukopenic today, mild left shift
CT showed: several severely abnormal loops of small bowel with moderate circumferential bowel wall thickening and enhancement mostly proximal and mid jejunum; also dilated. The largest measures 4.1 cm. stomach is severely distended. Distal jejunum
shows mild bowel wall thickening and enhancement. Edematous intraperitoneal fat and mild free fluid.
#Acute Gastroenteritis vs. Bowel Obstruction
Diffuse small bowel thickening along with clinical picture, points towards a possible infectious cause, though obstruction cannot be completely ruled out. GI consult/recommendation would be appreciated.
NGT Decompression and bowel rest, with sips of water
--- NOTE | 2025-08-20 11:24 | W.PN.HOSP.TC ---
Today's Communication/Plan
-
Assessment / Plan
Assessment / Plan
General: No Apparent Distress, Conversant
HEENT: NormoCephalic, Moist mucous membranes, NGT in place to LIWS
Respiratory: Clear and Non Labored Respirations
Cardiac: S1/S2 and Regular Rhythm; No Rub or Gallop
GI: Soft, mild TTP, mildly distended, decreased bowel sounds
Musculoskeletal: No Edema, no deformity
Skin: Warm and dry
: NO [place]
Neuro: Awake, Alert, Nonfocal/grossly intact
Psych: Calm and Intact Judgment/Insight
Ms. Dueñas is a 54-year-old female with no significant medical history other than IBS many years ago and what sounds like possible ileus (also many years ago) who presents with abdominal distention, abdominal pain, and nausea with dry heaving. Her
symptoms began on Saturday (approximate 4 days prior to arrival). She had some nonbloody diarrhea initially at the time of symptom onset which has since resolved. She also reports fevers at home up to 102 �F. She denies any recent sick contacts.
She had some appetizers while out of the bed over the weekend but does not think she ate anything unusual. In the ED she was afebrile and normotensive. Her labs were generally unremarkable other than a mild hyponatremia of 133. CT imaging of her
abdomen and pelvis with IV contrast showed several dilated loops of small bowel with wall thickening concerning for inflammation, developing obstruction could not be excluded but could also be due to ileus. She was started on supportive care with
IV fluids and antiemetics and has been admitted for further evaluation and management.
Ileus versus SBO:
- Suspect enteritis with ileus, possibly due to acute viral illness, will need to continue to monitor for developing SBO
- Worsening abdominal pain and distention last evening, NG tube now in place to LIWS, approximately 2700 cc bilious output overnight
- Continue supportive care with antiemetics and pain control but avoid opiates
- To be evaluated by surgery
- N.p.o., IV fluids with dextrose
- Stool studies if further episodes of diarrhea
Hyponatremia:
- Mild, resolved
- Monitor
DVT prophylaxis: Lovenox
CODE STATUS: Full code
Total time spent on today's encounter was 54 minutes
Anticipated Discharge: > 48 hours
Subjective/Interval History
-
Date of Service: August 20, 2025
NG tube placed overnight with approximately 2.7 L of bilious output. Abdomen subsequently softer on palpation. NGT remains to low intermittent wall suction
Objective Data
-
Labs:
Laboratory Results
08/20/25
05:51
WBC 3.6 L
Hgb 11.9 L
Hct 33.3 L
Plt Count 268
Sodium 139
Potassium 3.7
Chloride 104
Carbon Dioxide 24
BUN 11
Creatinine 0.5 L
Glucose 103 H
Calcium 8.6
Vital Signs:
Vital Signs
Temp Pulse Resp BP Pulse Ox
98.0 F 73 16 121/71 97
08/20/25 07:00 08/20/25 07:00 08/20/25 07:00 08/20/25 07:00 08/20/25 07:00
I&O
08/19/25 08/20/25 08/21/25
06:59 06:59 06:59
Intake Total 1000 / 1000 50 / 50
Output Total 1999 / 0 700 / 700
Balance 1000 / 1000 -1950 / -2650 -700 / -700
Review of Systems
-
History Source: Patient
All other systems: Reviewed and negative
Abdomen/GI: Reports Abdominal Pain and Nausea
Physical Exam
-
General: No Apparent Distress
--- NOTE | 2025-08-20 13:07 | CON.GI ---
Addendum entered and electronically signed by Toyin Ash MD 08/20/25 18:51:
I saw and examined the patient.
The CONVERTING SUPERVISOR's note was reviewed and I agree with the note.
Comment: This is a 54-year-old female with past medical history as listed below takes multiple supplements through a holistic or functional medicine doctor who was in her usual state of health up until recently when she started to develop abdominal
pain with nausea vomiting and had diarrhea and fever prior to admission presented to the ER on 08/18/[address] was noted to have enteritis involving multiple segments of the small bowel mostly involving the jejunal loops with GOO and PSBO and
had an NG tube placed with almost 2700 cc of fluid drained. Surgery was also consulted. Lactic acid was normal. [place] but did not recollect eating any food that tasted bad
Assessment and plan abdominal pain with nausea, vomiting, diarrhea and fever and presented with symptoms of gastric outlet obstruction and partial small bowel obstruction with significant distention of the stomach and jejunum with jejunal thickening
and also other loops of the bowel were also noted to be thickened most likely has enteritis likely infectious etiology given acute onset of symptoms less likely IBD. Lactic acid is normal so less likely ischemia. No prior abdominal surgeries so
doubt adhesions causing PSBO. surgery is also on board. Symptoms of distention and pain are improved with NG tube decompression but if her bowel obstruction persists may need surgery and/or small bowel follow-through first. If she does have
diarrhea will get stool studies also she has not had any diarrhea since admission. continue supportive care with IV fluids and npo, PPI and correction of electrolytes. I will also start her on antibiotics to prevent translocation and bacteremia
given severe enteritis.
Original Note:
Consultation
-
Date/Time Consultation Requested: 08/20/25 1200
Date/Time Consultation Performed: 08/20/25 1300
Requesting Provider: MALVIN Alan
Performing Provider: Dr. Ash/MALVIN Alas
Reason for Consultation: N/V
Medical History
Chief Complaint / HPI
Chief Complaint: abd pain
History of Present Illness:
54-year-old female with past medical history of psoriatic arthritis/psoriasis, history of adenomatous polyp, cervical dysplasia with history of HPV, breast augmentation otherwise no past surgical history who follows with a holistic/functional
medicine practitioner and takes over 50 supplements a day presents to the emergency room on 08/18/2025 with 4-day history of abdominal pain, dry heaves, nausea with previous fever and large episode of watery bowel movement day prior to presentation,
asked to evaluate for gastroenteritis. The patient states that on Saturday she went to an event on a 'horse [employer]'. The day prior she cooked for herself at home which was fish, vegetables. She states that nothing tasted funny to her. On Saturday
she went to this event. She states that she ate something such as coconut but not clusters. She states things were in bags mostly. But that she did have some homemade foods that contain some nuts. She does state that later that evening she
developed acute onset of abdominal cramping and nausea. She states that the next day she could not eat or drink anything except for water or lemon water. She then had persistent nausea with severe abdominal cramping. On Saturday she developed a
fever up to 102 �F. She states that she had persistent dry heaves however could not vomit. She did continue to drink water. Her bowel movements are usually soft, formed and daily. Her last bowel movement was on Saturday which was normal. She
states that her fever slowly went down over the next day to 99 degrees. She states that on Saturday morning she had large episodes of diarrhea with 'chunks of solid stool'. She still had persistent abdominal cramping with nausea and dry heaves
and abdominal bloating. She proceeded to the emergency room for further evaluation. She does state that she has not been able to take any of her supplements since Saturday. She does not take any prescription medication. She does not recall
eating any spoiled food that she is aware of. She denies any melena, hematochezia, dysphagia or odynophagia. She currently has an NG tube in place with greater than 2700 cc of brown bilious output. She states that she has not been able to pass
flatus. She lives alone. None of the contacts that she is aware of are sick. The patient is up-to-date with colonoscopy (had last full colonoscopy November 2023 for EMR resection of 17 mm polyp in rectosigmoid colon). She does state that she had
a history of 'ileus' over 20 years ago. She has no history of abdominal surgery.
Past Medical History
Past Medical History: Other (Psoriatic arthritis/psoriasis, history of adenomatous polyp, cervical dysplasia with history of HPV)
Past Surgical History: Other (Breast augmentation)
Social History
Tobacco: Non-Smoker
Alcohol: None
Drug: None
Personal: Single
Living: Alone
Family History
Family History: Other (No family history of gastrointestinal malignancy, IBD or other malignancies)
Allergies / Home Medications
Allergy/AdvReac Type Severity Reaction Status Date / Time
cefadroxil (From [facility] [place]) Allergy facial Verified 08/18/25 21:50
spasms
�Medication �Instructions �Recorded
No Meds [No Current Medications] 08/18/25
Review of Systems
-
All other systems: A 12 pt ROS was Negative except as stated above in HPI
Vital Signs
Temp Pulse Resp BP Pulse Ox
98.0 F 73 16 121/71 97
08/20/25 07:00 08/20/25 07:00 08/20/25 07:00 08/20/25 07:00 08/20/25 07:00
Physical Exam
Exam
HEENT: Anicteric and Other (NG tube in place)
Respiratory: Clear
GI: Soft, Normal Bowel Sounds, Tender (Mild tenderness) and Other (Mildly distended)
Musculoskeletal: No Edema
Skin: Warm and Dry
Neuro: AO x 3
Psych: Calm
Results
WBC 3.6 10^3/uL (4.8-10.8) L 08/20/25 05:51
Hgb 11.9 g/dL (12.0-16.0) L 08/20/25 05:51
Hct 33.3 % (37.0-47.0) L 08/20/25 05:51
MCV 96.5 fL (81.0-99.0) 08/20/25 05:51
Plt Count 268 10^3/uL (130-400) 08/20/25 05:51
Absolute Neuts (auto) 2.2 10^3/uL (1.4-6.5) 08/20/25 05:51
Sodium 139 mmol/L (135-145) 08/20/25 05:51
Potassium 3.7 mmol/L (3.5-5.1) 08/20/25 05:51
Chloride 104 mmol/L (98-107) 08/20/25 05:51
Carbon Dioxide 24 mmol/L (22-30) 08/20/25 05:51
BUN 11 mg/dl (7-17) 08/20/25 05:51
Creatinine 0.5 mg/dL (0.6-1.0) L 08/20/25 05:51
Calcium 8.6 mg/dl (8.4-10.2) 08/20/25 05:51
Total Bilirubin 0.9 mg/dl (0.2-1.3) 08/18/25 15:41
AST 18 U/L (14-36) 08/18/25 15:41
ALT 16 U/L (0-35) 08/18/25 15:41
Alkaline Phosphatase 61 U/L (38-126) 08/18/25 15:41
Lipase 41 U/L (23-300) 08/18/25 15:41
Diagnostic Image Results:
Chest/abdominal x-ray 08/19/2025:
IMPRESSION:
Findings HIGHLY SUSPICIOUS FOR MID TO DISTAL SMALL BOWEL OBSTRUCTION WITH PROGRESSION IN COMPARISON TO CT OF PRECEDING DAY. Marked gastric distention with air-fluid level.
No free air.
CT abdomen and pelvis with IV contrast 08/18/2025:
IMPRESSION: Several loops of abnormal small bowel with wall thickening concerning for inflammation, infection or ischemia. Developing obstruction cannot be excluded. Dilatation may also be due to ileus. Limited evaluation without oral contrast.
Associated edematous intraperitoneal fat and mild free fluid. Omental caking cannot be excluded
Bilateral too small to hypodense renal lesions likely benign cysts.
Prior GI Procedures:
Sigmoidoscopy 06/17/25 Dr. Jenkins: - One 2 mm polyp in the distal sigmoid colon, removed
with a cold biopsy forceps. Resected and retrieved.
- Post mucosectomy scar in the recto-sigmoid colon.
Biopsied.
- A tattoo was seen in the recto-sigmoid colon. The
tattoo site appeared normal.
Colonoscopy: 12/13/2023 (Dr. Jenkins) - Hemorrhoids found on perianal exam.
- One 17 mm polyp at the recto-sigmoid colon, removed
with mucosal resection. Resected and retrieved.
Treated with argon plasma coagulation (APC).
- A tattoo was seen in the recto-sigmoid colon
infiltrating the polyp.
- Mucosal resection was performed. Resection and
retrieval were complete.
Assessment / Plan
-
54-year-old female with past medical history of psoriatic arthritis/psoriasis, history of adenomatous polyp, cervical dysplasia with history of HPV, breast augmentation otherwise no past surgical history who follows with a holistic/functional
medicine practitioner and takes over 50 supplements a day presents to the emergency room on 08/18/2025 with 4-day history of abdominal pain, dry heaves, nausea with previous fever and large episode of watery bowel movement day prior to presentation,
asked to evaluate for gastroenteritis. No further bowel movement since Saturday. No further fever. Persistent nausea with significant NG tube output greater than [address] abdomen and pelvis with IV contrast only findings with
severely abnormal loops of small bowel with moderate circumferential bowel wall thickening and dilatation in the proximal mid jejunum. Patient without any leukocytosis on arrival, WBC was 8.4, currently 3.6 without any antibiotics. Tmax was 99.0
on arrival. Hemoglobin 11.9, hematocrit 33.3, platelets 268, sodium 139, potassium 3.7, chloride 104, CO2 24, BUN 11, creatinine 0.5, glucose 103, total bilirubin 0.9, AST 18, ALT 16, alk phos 61, albumin 3.9, lipase 41.
Impression:
Small bowel obstruction versus ileus
Plan:
-Surgery following
-If with bowel movement obtain stool studies, had bowel movement Saturday.
-Continue NG tube decompression
-Continue IV fluids
-Continue pantoprazole
-Further recommendations to be forthcoming
-
-
Thank you for consultation and allowing me to participate in the patient's care. Please call the hydroponics worker GI physician during the after hours with any questions or concerns.
[2025-08-20 15:00] VITALS: BP 119/66
[2025-08-20 15:32] VITALS: BMI 19.7
--- NOTE | 2025-08-20 16:09 | CM ---
Spoke with patient in room .
Pt has NG tube .
NPO.
Antiemetic ordered as needed.
Offered VN she was unsure of her needs
PLAN Home offer VN again
[2025-08-20] MEDS: LOVENOX 40 MG SC (17:23)
[2025-08-20] MEDS: TORADOL 10 MG IV (19:41)
[2025-08-20] MEDS: ZOFRAN 4 MG IV (19:42)
[2025-08-20] MEDS: CIPRO 400 MG 200 IV (21:01)
[2025-08-20] MEDS: FLAGYL 500 MG 100 IV (21:02)
[2025-08-20 23:29] VITALS: BP 125/70
[2025-08-21] MEDS: OFIRMEV 100 IV ×4 (00:03→20:47)
[2025-08-21] MEDS: COMPAZINE 5 MG IV (00:03)
[2025-08-21] MEDS: ANESTHETIC LOZENGE 1 LOZENGE PO ×6 (00:03→17:51)
[2025-08-21] MEDS: FLAGYL 500 MG 100 IV ×3 (04:25→21:21)
[2025-08-21] MEDS: D5/0.45%NACL 1000 IV (04:25)
[2025-08-21 05:53] LABS: Hematocrit 31.4 % (37.0-47.0); Hemoglobin 10.9 g/dL (12.0-16.0); Mean Corp Hgb Conc. 34.7 g/dL (33.0-37.0); Mean Corpuscular Volume 97.8 fL (81.0-99.0); Nucleated Red Blood Cells % 0 %; Platelet Count 277 10^3/uL (130-400); Red Cell Dist. Width 12.8 % (11.5-14.5)
[2025-08-21 06:10] LABS: Blood Urea Nitrogen 13 mg/dl (7-17); Calcium 8.7 mg/dl (8.4-10.2); Carbon Dioxide 28 mmol/L (22-30); Chloride 102 mmol/L (98-107); Estimated Creatinine Clearance 95 ml/min; Glucose 102 mg/dl (70-99); Magnesium 1.8 mg/dl (1.6-2.3); Potassium 3.2 mmol/L (3.5-5.1); Sodium 139 mmol/L (135-145); eGFR > 60.00
[2025-08-21] MEDS: NSS (PRESERVATIVE FREE) 10 ML IV (08:10)
[2025-08-21] MEDS: PROTONIX IV 40 MG IV (08:11)
[2025-08-21] MEDS: CIPRO 400 MG 200 IV ×2 (08:19→22:38)
[2025-08-21 08:45] VITALS: BP 123/70
[2025-08-21] MEDS: KCL 270 MEQ IV (09:37)
--- NOTE | 2025-08-21 10:08 | W.PN.GI.CBS2 ---
Today's Communication / Plan
-
obstruction series
Assessment / Plan
-
54-year-old female with past medical history of psoriatic arthritis/psoriasis, history of adenomatous polyp, cervical dysplasia with history of HPV, breast augmentation otherwise no past surgical history who follows with a holistic/functional
medicine practitioner and takes over 50 supplements a day presents to the emergency room on 08/18/2025 with 4-day history of abdominal pain, dry heaves, nausea with previous fever and large episode of watery bowel movement day prior to presentation,
asked to evaluate for gastroenteritis. No further bowel movement since Saturday. No further fever. Persistent nausea with significant NG tube output greater than [address] abdomen and pelvis with IV contrast only findings with
severely abnormal loops of small bowel with moderate circumferential bowel wall thickening and dilatation in the proximal mid jejunum. Patient without any leukocytosis on arrival, WBC was 8.4, currently 3.6 without any antibiotics. Tmax was 99.0
on arrival. Hemoglobin 11.9, hematocrit 33.3, platelets 268, sodium 139, potassium 3.7, chloride 104, CO2 24, BUN 11, creatinine 0.5, glucose 103, total bilirubin 0.9, AST 18, ALT 16, alk phos 61, albumin 3.9, lipase 41.
Impression:
Severe enteritis with partial small bowel obstruction likely infectious etiology given acute onset of symptoms less likely IBD. Lactic acid is normal so less likely ischemia. No prior abdominal surgeries so doubt adhesions causing PSBO
Plan:
-Surgery following
-If with bowel movement obtain stool studies, had bowel movement Saturday.
-Continue NG tube decompression
-Will get obstruction series today and if no improvement or worsening obstruction may need to have surgery.
-started antibiotics 08/20
-Continue IV fluids
-correction of electrolytes
-Continue pantoprazole
Subjective
Subjective
Date of Service: August 21, 2025
Pain is slightly improved. Still no flatus or bowel movement. Apparently 950 mL was drained from the NG tube yesterday
Objective
Data Reviewed
Laboratory Data:
Laboratory Results
08/21/25 05:30
08/21/25 05:30
Laboratory Results
Phosphorus 3.3 mg/dl (2.5-4.5) 08/21/25 05:30
Magnesium 1.8 mg/dl (1.6-2.3) 08/21/25 05:30
Total Bilirubin 0.9 mg/dl (0.2-1.3) 08/18/25 15:41
AST 18 U/L (14-36) 08/18/25 15:41
ALT 16 U/L (0-35) 08/18/25 15:41
Alkaline Phosphatase 61 U/L (38-126) 08/18/25 15:41
Lipase 41 U/L (23-300) 08/18/25 15:41
Vital Signs and I&O:
Vital Signs
Temp Pulse Resp BP Pulse Ox
98.2 F 79 20 123/70 97
08/21/25 08:45 08/21/25 08:45 08/21/25 08:45 08/21/25 08:45 08/21/25 08:45
I&O
08/20/25 08/21/25 08/22/25
06:59 06:59 06:59
Intake Total 50 / 50 2230 / 2230
Output Total 1999 / 2700 2550 / 2550
Balance -1950 / -2650 -320 / -320
Physical Exam
Physical Exam
Cardiology: Normal Sinus Rhythm
Pulmonary: Clear
GI: Soft and Other (Mildly distended, tender in the upper abdomen, hypoactive bowel sounds, )
[2025-08-21] MEDS: TORADOL 10 MG IV ×2 (12:48→18:04)
--- NOTE | 2025-08-21 13:55 | W.PN.GS2 ---
Addendum entered and electronically signed by Hang Sutherland MD 08/21/25 16:00:
I saw and examined the patient.
The [employer] Developer's note was reviewed and I agree with the note.
Comment: Feels about the same, denies passing flatus, belly soft and mildly ttp diffusely, will plan for PO contrast study Saturday if no improvement
Original Note:
Today's Communication / Plan
-
Continue NPO/NGT
Assessment / Plan
-
54 yo female taking >50 supplements with recent trip to farm with [place] presenting with severe gastroenteritis with obstructive component
AFVSS
NGT placed for decompression with high bilious outputs
No flatus/stools
AFVSS
No leukocytosis
Plan:
Appreciate GI eval
Initiated on Cipro/Flagyl 08/20
Stool studies once passing BM's
Changed nonnarcotic analgesics to scheduled
PRN valium and lozenges for comfort
SBFT study on Saturday if no improvement
C/w PPI for GI ppx
Medical management as per primary team
Subjective Data
-
Date of Service: August 21, 2025
Pt seen and examined at bedside with Dr. Sutherland. Intermittent mild nausea but no vomiting around NGT. Overall not feeling too much better or worse. Still with discomfort across abdomen. No flatus or bm's. C/O throat soreness
Objective Data
-
Intake and Output
08/20/25 08/21/25 08/22/25
06:59 06:59 06:59
Intake Total 50 / 50 2230 / 2230
Output Total 1999 / 0 2550 / 2550
Balance -1950 / -2650 -320 / -320
Intake:
Oral fluids 50 / 50 440 / 440
IV fluids (Total) 1150 / 1150
IV piggybacks 400 / 400
Amount instilled into GI Tube ( 240 / 240
Total)
[place] Sump 240 / 240
Output:
Gastrointestinal tube output ( 1999 / 2549
Total)
[place] Sump 1999 / 2549
Other:
Number of approximated MODERATE 1 2
amounts of urine
Number of approximated LARGE 3
amounts of urine
Vital Signs
Temp Pulse Resp BP Pulse Ox
98.2 F 79 20 123/70 97
08/21/25 08:45 08/21/25 08:45 08/21/25 08:45 08/21/25 08:45 08/21/25 08:45
Lab Results
08/21/25 05:30
08/21/25 05:30
Calcium 8.7 mg/dl (8.4-10.2) 08/21/25 05:30
Phosphorus 3.3 mg/dl (2.5-4.5) 08/21/25 05:30
Magnesium 1.8 mg/dl (1.6-2.3) 08/21/25 05:30
Total Bilirubin 0.9 mg/dl (0.2-1.3) 08/18/25 15:41
AST 18 U/L (14-36) 08/18/25 15:41
ALT 16 U/L (0-35) 08/18/25 15:41
Alkaline Phosphatase 61 U/L (38-126) 08/18/25 15:41
Total Protein 7.0 g/dl (6.3-8.2) 08/18/25 15:41
Albumin 3.9 g/dl (3.5-5.0) 08/18/25 15:41
Physical Exam
-
NAD
ABD softly distended, mild generalized tenderness, no rigidity/guarding
NGT with bilious outputs
[2025-08-21] MEDS: ZOFRAN 4 MG IV ×2 (14:12→20:46)
[2025-08-21 16:24] VITALS: BP 119/68
--- NOTE | 2025-08-21 16:24 | W.PN.UPDATE ---
Update Note
Progress Note Update
General: No Apparent Distress, Conversant
HEENT: NormoCephalic, Moist mucous membranes, NGT in place to wall suction with bilious output
Respiratory: Clear and Non Labored Respirations
Cardiac: S1/S2 and Regular Rhythm; No Rub or Gallop
GI: Soft, mild TTP, mildly distended, decreased bowel sounds
Musculoskeletal: No Edema, no deformity
Skin: Warm and dry
: NO [place]
Neuro: Awake, Alert, Nonfocal/grossly intact
Psych: Calm and Intact Judgment/Insight
Ms. Dueñas is a 54-year-old female with no significant medical history other than IBS many years ago and what sounds like possible ileus (also many years ago) who presents with abdominal distention, abdominal pain, and nausea with dry heaving. Her
symptoms began on Saturday (approximate 4 days prior to arrival). She had some nonbloody diarrhea initially at the time of symptom onset which has since resolved. She also reports fevers at home up to 102 �F. She denies any recent sick contacts.
She had some appetizers while out of the bed over the weekend but does not think she ate anything unusual. In the ED she was afebrile and normotensive. Her labs were generally unremarkable other than a mild hyponatremia of 133. CT imaging of her
abdomen and pelvis with IV contrast showed several dilated loops of small bowel with wall thickening concerning for inflammation, developing obstruction could not be excluded but could also be due to ileus. She was started on supportive care with
IV fluids and antiemetics and has been admitted for further evaluation and management.
Ileus versus SBO:
- Suspect enteritis with ileus, possibly due to acute viral illness, will need to continue to monitor for developing SBO
- Antibiotics added with Cipro and metronidazole
- Symptomatic improvement after placement of NG tube, now to wall suction with bilious output
- Still no flatus or bowel movement
- If no improvement by Saturday we will pursue small bowel follow-through study
- Continue supportive care with antiemetics and pain control but avoid opiates
- Appreciate general surgery and GI guidance
- N.p.o., IV fluids with dextrose
- Stool studies if further episodes of diarrhea
Hypokalemia:
- Potassium 3.2
- Repeating IV considering n.p.o.
- Monitor
DVT prophylaxis: Lovenox
CODE STATUS: Full code
Total time spent on today's encounter was 40 minutes
--- NOTE | 2025-08-21 16:24 | W.PN.HOSP.TC ---
Today's Communication/Plan
-
Continue n.p.o., IV fluids
Continue throat comfort measures, pantoprazole, Zofran for nausea as needed
Continue Cipro and Flagyl.
Continue to monitor NG tube output.
Follow GI and surgery recommendations.
Assessment / Plan
Assessment / Plan
Assessment - Ms. Dueñas is a 54-year-old female with PMHx significant for IBS/ileus (many years ago) is admitted to the hospital for evaluation of abdominal distention, pain and nausea with dry heaving. Patient is admitted to the hospital for
management of enteritis with partial small bowel obstruction.
Plan-
# Partial small bowel obstruction, ileus-
Severe enteritis, likely viral given her symptoms preceded by viral illness about 4 days ago.
GI, surgery consulted, NG tube in place, day 1 output at 2700, day 2 output overnight (08/20/2025) -950 mL.
Continue NG tube with negative suction, antiemetics, pain control.
Surgery recommends colonic transition testing with x-ray if no improvement by Saturday.
N.p.o., NS with dextrose.
No bowel movements or flatus yet.
GI started patient on antibiotics-ciprofloxacin and Flagyl -day 2.
WBC-normal, no fevers.
# Hypokalemia-
Potassium supplementation, monitor serum potassium levels
# Hyponatremia-
Resolved, continue to trend electrolytes with suction and fluid losses.
# DVT prophylaxis-
Lovenox.
# CODE STATUS-
Full code.
Anticipated Discharge: 24 - 48 hours
Subjective/Interval History
-
Date of Service: August 21, 2025
Patient reports abdominal discomfort, and also throat discomfort from the NG tube. She describes to be passing gas but apparently burping. (No farting).
No bowel movements
NG tube output-950 mL.
Objective Data
-
Labs:
Laboratory Results
08/21/25
05:30
WBC 5.5
Hgb 10.9 L
Hct 31.4 L
Plt Count 277
Sodium 139
Potassium 3.2 L
Chloride 102
Carbon Dioxide 28
BUN 13
Creatinine 0.4 L
Glucose 102 H
Calcium 8.7
Vital Signs:
Vital Signs
Temp Pulse Resp BP Pulse Ox
98.2 F 79 20 123/70 97
08/21/25 08:45 08/21/25 08:45 08/21/25 08:45 08/21/25 08:45 08/21/25 08:45
I&O
08/20/25 08/21/25 08/22/25
06:59 06:59 06:59
Intake Total 50 / 50 2230 / 2230
Output Total 1999 / 0 2550 / 2550
Balance -1950 / -2650 -320 / -320
Review of Systems
-
History Source: Patient
Constitutional: Reports No Symptoms
EENT: Reports Other (Throat pain and discomfort.)
Respiratory: Reports No Symptoms
Cardiac: Reports No Symptoms
Abdomen/GI: Reports Abdominal Pain, Bloated and Other (No bowel movements or gas per rectum)
Breast: Reports No Symptoms
Genitourinary: Reports No Symptoms
Musculoskeletal: Reports No Symptoms
Skin: Reports No Symptoms
Hematologic / Lymphatic: Reports No Symptoms
Physical Exam
-
General: No Apparent Distress, Comfortable and Other (NG tube connected to negative suction.)
HEENT: Moist Mucous Membranes
Respiratory: Clear to Auscultation; Negative Wheezes, Rales, Rhonchi or Crackles
Cardiac: Regular Rhythm and S1/S2; Negative Murmur, Rub or Gallop
GI: Soft, Tender (Tender in the RUQ, LUQ) and Distended (Mild.); Negative Normal Bowel Sounds (Diminished bowel sounds)
Genito-urinary: No Costovertebral Tender
Musculoskeletal: No Clubbing, No Cyanosis and No Edema
Skin: Warm
Neuro: AO x 3 and Nonfocal/Grossly Intact
Psych: Calm
[2025-08-21] MEDS: LOVENOX 40 MG SC (17:48)
[2025-08-21] MEDS: D5/0.45%NACL IV (21:50)
[2025-08-21 23:19] VITALS: BP 117/69
[2025-08-22] MEDS: TORADOL 10 MG IV ×4 (00:49→18:43)
[2025-08-22] MEDS: COMPAZINE 5 MG IV ×2 (00:49→10:23)
[2025-08-22] MEDS: OFIRMEV 100 IV ×2 (03:04→08:35)
[2025-08-22] MEDS: FLAGYL 500 MG 100 IV ×3 (03:33→20:33)
[2025-08-22] MEDS: ZOFRAN 4 MG IV ×2 (06:14→23:49)
[2025-08-22 07:00] VITALS: BP 118/67
[2025-08-22 07:16] LABS: Hematocrit 31.3 % (37.0-47.0); Hemoglobin 11.0 g/dL (12.0-16.0); Mean Corp Hgb Conc. 35.1 g/dL (33.0-37.0); Mean Corpuscular Volume 98.1 fL (81.0-99.0); Nucleated Red Blood Cells % 0 %; Platelet Count 309 10^3/uL (130-400); Red Cell Dist. Width 13.0 % (11.5-14.5)
[2025-08-22 08:20] LABS: Blood Urea Nitrogen 14 mg/dl (7-17); Calcium 8.6 mg/dl (8.4-10.2); Carbon Dioxide 29 mmol/L (22-30); Chloride 101 mmol/L (98-107); Estimated Creatinine Clearance 95 ml/min; Glucose 116 mg/dl (70-99); Magnesium 1.7 mg/dl (1.6-2.3); Potassium 3.3 mmol/L (3.5-5.1); Sodium 138 mmol/L (135-145); eGFR > 60.00
[2025-08-22] MEDS: PROTONIX IV 40 MG IV (08:35)
[2025-08-22] MEDS: NSS (PRESERVATIVE FREE) 10 ML IV (08:35)
[2025-08-22] MEDS: D5/0.45%NACL 1000 IV ×2 (08:53→22:56)
[2025-08-22] MEDS: CIPRO 400 MG 200 IV ×2 (09:03→21:47)
--- NOTE | 2025-08-22 10:40 | W.PN.HOSP.TC ---
Today's Communication/Plan
-
Continue current management
Assessment / Plan
Assessment / Plan
Assessment - Ms. Dueñas is a 54-year-old female with PMHx significant for IBS/ileus (many years ago) is admitted to the hospital for evaluation of abdominal distention, pain and nausea with dry heaving. Patient is admitted to the hospital for
management of enteritis with partial small bowel obstruction.
Plan-
# Partial small bowel obstruction, ileus-
Severe enteritis, likely viral given her symptoms preceded by viral illness about 4 days ago.
GI, surgery consulted, NG tube in place, day 1 output at 2700, day 2 output overnight (08/20/2025) -950 mL, day 3 output - 950ml
Abdominal x-ray obtained on 08/21/2025-small bowel obstruction with progression.
Continue NG tube with negative suction, antiemetics, pain control.
Touch base with surgery, plan is to perform small bowel follow-through with p.o. and IV contrast.
N.p.o. at midnight.
No bowel movements or flatus yet.
GI started patient on antibiotics-ciprofloxacin and Flagyl -day 3.
WBC-normal, no fevers.
# Hypokalemia-
Potassium supplementation, monitor serum potassium levels
# Hyponatremia-
Resolved, continue to trend electrolytes with suction and fluid losses.
# DVT prophylaxis-
Hold Lovenox, SCD for the time being until after surgery.
# CODE STATUS-
Full code.
Anticipated Discharge: > 48 hours
Subjective/Interval History
-
Date of Service: August 22, 2025
Patient reports abdominal pain, discomfort pain in her right upper and right lower quadrants that is radiating into her back, she did not pass any gas or bowel movement yet.
She also reports to be nauseous and having throat discomfort.
Objective Data
-
Labs:
Laboratory Results
08/22/25
06:55
WBC 4.2 L
Hgb 11.0 L
Hct 31.3 L
Plt Count 309
Sodium 138
Potassium 3.3 L
Chloride 101
Carbon Dioxide 29
BUN 14
Creatinine 0.4 L
Glucose 116 H
Calcium 8.6
Vital Signs:
Vital Signs
Temp Pulse Resp BP Pulse Ox
97.7 F 65 18 118/67 96
08/22/25 07:00 08/22/25 07:00 08/22/25 07:00 08/22/25 07:00 08/22/25 07:00
I&O
08/21/25 08/22/25 08/23/25
06:59 06:59 06:59
Intake Total 2230 / 2230 1240 / 1240 100 / 100
Output Total 2550 / 2550 1130 / 1130
Balance -320 / -320 110 / 110 100 / 100
Review of Systems
-
History Source: Patient
Constitutional: Reports Fatigue
EENT: Reports No Symptoms Reported
Respiratory: Reports No Symptoms
Cardiac: Reports No Symptoms
Abdomen/GI: Reports Abdominal Pain, Nausea, Diarrhea and Bloated
Genitourinary: Reports No Symptoms
Musculoskeletal: Reports No Symptoms
Neuro: Reports No Symptoms
Endocrine: Reports No Symptoms
Allergy / Immunology: Reports No Symptoms
Physical Exam
-
General: Pain (appears in pain and discomfort)
HEENT: Moist Mucous Membranes, Anicteric and [place] Conjunctivae
Respiratory: Clear to Auscultation; Negative Wheezes, Rales, Rhonchi or Crackles
Cardiac: Regular Rhythm and S1/S2; Negative Murmur, Rub or Gallop
GI: Soft, Nontender, Nondistended and Normal Bowel Sounds
[2025-08-22] MEDS: KCL 270 MEQ IV (11:32)
[2025-08-22 11:45] VITALS: BP 126/70
--- NOTE | 2025-08-22 14:44 | W.PN.GI.CBS2 ---
Today's Communication / Plan
-
Urgent CAT scan repeat today
Continue NG tube to intermittent suction and n.p.o.
Assessment / Plan
-
54-year-old female with past medical history of psoriatic arthritis/psoriasis, history of adenomatous polyp, cervical dysplasia with history of HPV, breast augmentation otherwise no past surgical history who follows with a holistic/functional
medicine practitioner and takes over 50 supplements a day presents to the emergency room on 08/18/2025 with 4-day history of abdominal pain, dry heaves, nausea with previous fever and large episode of watery bowel movement day prior to presentation,
asked to evaluate for gastroenteritis. No further bowel movement since Saturday. No further fever. Persistent nausea with significant NG tube output greater than [address] abdomen and pelvis with IV contrast only findings with
severely abnormal loops of small bowel with moderate circumferential bowel wall thickening and dilatation in the proximal mid jejunum. Patient without any leukocytosis on arrival, WBC was 8.4, currently 3.6 without any antibiotics. Tmax was 99.0
on arrival. Hemoglobin 11.9, hematocrit 33.3, platelets 268, sodium 139, potassium 3.7, chloride 104, CO2 24, BUN 11, creatinine 0.5, glucose 103, total bilirubin 0.9, AST 18, ALT 16, alk phos 61, albumin 3.9, lipase 41.
Impression:
Severe enteritis with partial small bowel obstruction likely infectious etiology given acute onset of symptoms less likely IBD. Lactic acid is normal so less likely ischemia. No prior abdominal surgeries so doubt adhesions causing PSBO
Plan:
-Surgery following
-If with bowel movement obtain stool studies, had last bowel movement Saturday.
-Continue NG tube decompression still with significant bilious drainage of almost 900 yesterday
-Obstruction series from yesterday shows worsening small bowel obstruction discussed with DR. Mark and , for repeat CT today and based on that may need surgery if worsening bowel obstruction and localized stricture noted
-started antibiotics 08/20
-Continue IV fluids
-correction of electrolytes
-Continue pantoprazole
Subjective
Subjective
Date of Service: August 22, 2025
Still distended and has about 900 cc of bilious drainage in the canister.
No flatus or BM yet
Objective
Data Reviewed
Laboratory Data:
Laboratory Results
08/22/25 06:55
08/22/25 06:55
Laboratory Results
Phosphorus 4.1 mg/dl (2.5-4.5) 08/22/25 06:55
Magnesium 1.7 mg/dl (1.6-2.3) 08/22/25 06:55
Total Bilirubin 0.9 mg/dl (0.2-1.3) 08/18/25 15:41
AST 18 U/L (14-36) 08/18/25 15:41
ALT 16 U/L (0-35) 08/18/25 15:41
Alkaline Phosphatase 61 U/L (38-126) 08/18/25 15:41
Lipase 41 U/L (23-300) 08/18/25 15:41
08/21/2025 CR Obstruct Series W/pa Chest
IMPRESSION: Findings suggest small bowel obstruction. Progressed.
No acute disease of the chest
Vital Signs and I&O:
Vital Signs
Temp Pulse Resp BP Pulse Ox
98.9 F 64 16 126/70 97
08/22/25 11:45 08/22/25 11:45 08/22/25 11:45 08/22/25 11:45 08/22/25 11:45
I&O
08/21/25 08/22/25 08/23/25
06:59 06:59 06:59
Intake Total 2230 / 2230 1240 / 1240 300 / 300
Output Total 2550 / 2550 1130 / 1130
Balance -320 / -320 110 / 110 300 / 300
Physical Exam
Physical Exam
Cardiology: Normal Sinus Rhythm
Pulmonary: Clear
GI: Soft, Distended and Tender (Upper abdomen, very hypoactive bowel sounds)
[2025-08-22 15:00] VITALS: BP 128/75
--- NOTE | 2025-08-22 15:29 | W.PN.GS2 ---
Addendum entered and electronically signed by Hang Sutherland MD 08/22/25 18:21:
I saw and examined the patient.
The [employer] Technician's note was reviewed and I agree with the note.
Comment: Feels the same, belly soft, mild ttp diffusely, AFVSS, labs OK, plan for PO contrast imaging today
Original Note:
Today's Communication / Plan
-
CT with oral/iv contrast
Assessment / Plan
-
54 yo female taking >50 supplements with recent trip to [place] with [place] presenting with severe gastroenteritis with obstructive component
AFVSS
NGT placed for decompression with high bilious outputs, although lower today than previous
Obstruction series from 08/21 with persistent distention/obstruction
No flatus/stools
AFVSS
No leukocytosis, mild leukopenia
Plan:
Check CT with Iv and oral contrast (ok to give via ngt)
Appreciate GI eval
Initiated on Cipro/Flagyl 08/20
Stool studies once passing BM's
Continue analgesics
PRN valium and lozenges for comfort
C/w PPI for GI ppx
Medical management as per primary team
Subjective Data
-
Date of Service: August 22, 2025
Pt seen and examined at bedside with Dr. Suhterland. Intermittent nausea. Not passing gas or stools. Abdominal pain present and stable, aching.
Objective Data
-
Intake and Output
08/21/25 08/22/25 08/23/25
06:59 06:59 06:59
Intake Total 2230 / 2230 1240 / 1240 300 / 300
Output Total 2550 / 2550 1130 / 1130
Balance -320 / -320 110 / 110 300 / 300
Intake:
Oral fluids 440 / 440
IV fluids (Total) 1150 / 1150 640 / 640
IV piggybacks 400 / 400 600 / 600 300 / 300
Amount instilled into GI Tube ( 240 / 240
Total)
[place] Sump 240 / 240
Output:
Gastrointestinal tube output ( 2550 / 2550 950 / 950
Total)
[place] Sump 2550 / 2550 950 / 950
Urine, Voided 180 / 180
Other:
Number of approximated SMALL 1
amounts of urine
Number of approximated MODERATE 2 1
amounts of urine
Number of approximated LARGE 3
amounts of urine
Vital Signs
Temp Pulse Resp BP Pulse Ox
98.4 F 69 17 128/75 98
08/22/25 15:00 08/22/25 15:00 08/22/25 15:00 08/22/25 15:00 08/22/25 15:00
Lab Results
08/22/25 06:55
08/22/25 06:55
Calcium 8.6 mg/dl (8.4-10.2) 08/22/25 06:55
Phosphorus 4.1 mg/dl (2.5-4.5) 08/22/25 06:55
Magnesium 1.7 mg/dl (1.6-2.3) 08/22/25 06:55
Total Bilirubin 0.9 mg/dl (0.2-1.3) 08/18/25 15:41
AST 18 U/L (14-36) 08/18/25 15:41
ALT 16 U/L (0-35) 08/18/25 15:41
Alkaline Phosphatase 61 U/L (38-126) 08/18/25 15:41
Total Protein 7.0 g/dl (6.3-8.2) 08/18/25 15:41
Albumin 3.9 g/dl (3.5-5.0) 08/18/25 15:41
Physical Exam
-
NAD
ABD softly distended (moderate), mild to mod generalized tenderness, no rigidity/guarding
NGT with bilious outputs
[2025-08-22] MEDS: OMNIPAQUE 50 ML PO (15:36)
[2025-08-22] MEDS: LOVENOX 40 MG SC (17:16)
[2025-08-22 23:11] VITALS: BP 134/73
[2025-08-23] MEDS: TORADOL 10 MG IV ×4 (00:55→18:17)
[2025-08-23] MEDS: FLAGYL 500 MG 100 IV ×3 (04:25→23:09)
[2025-08-23] MEDS: ZOFRAN 4 MG IV (05:49)
[2025-08-23 07:37] LABS: Hematocrit 32.4 % (37.0-47.0); Hemoglobin 11.2 g/dL (12.0-16.0); Mean Corp Hgb Conc. 34.6 g/dL (33.0-37.0); Mean Corpuscular Volume 97.6 fL (81.0-99.0); Platelet Count 363 10^3/uL (130-400); Red Cell Dist. Width 12.9 % (11.5-14.5)
[2025-08-23 07:59] LABS: Blood Urea Nitrogen 8 mg/dl (7-17); Calcium 8.5 mg/dl (8.4-10.2); Carbon Dioxide 31 mmol/L (22-30); Chloride 99 mmol/L (98-107); Estimated Creatinine Clearance 95 ml/min; Glucose 124 mg/dl (70-99); Potassium 3.5 mmol/L (3.5-5.1); Sodium 136 mmol/L (135-145); eGFR > 60.00
[2025-08-23 08:06] VITALS: BP 117/66
[2025-08-23] MEDS: CIPRO 400 MG 200 IV ×2 (08:11→21:36)
[2025-08-23] MEDS: NSS (PRESERVATIVE FREE) 10 ML IV (08:11)
[2025-08-23] MEDS: PROTONIX IV 40 MG IV (08:11)
--- NOTE | 2025-08-23 08:54 | W.PN.GI.CBS2 ---
Today's Communication / Plan
-
Continue NGT to int suction
Continue antibiotics
Discussed with surgery they are going to evaluate later today to see if she needs to go to the OR for persistent SBO also noted on repeat CT yesterday
Assessment / Plan
-
54-year-old female with past medical history of psoriatic arthritis/psoriasis, history of adenomatous polyp, cervical dysplasia with history of HPV, breast augmentation otherwise no past surgical history who follows with a holistic/functional
medicine practitioner and takes over 50 supplements a day presents to the emergency room on 08/18/2025 with 4-day history of abdominal pain, dry heaves, nausea with previous fever and large episode of watery bowel movement day prior to presentation,
asked to evaluate for gastroenteritis. No further bowel movement since Saturday. No further fever. Persistent nausea with significant NG tube output greater than [address] abdomen and pelvis with IV contrast only findings with
severely abnormal loops of small bowel with moderate circumferential bowel wall thickening and dilatation in the proximal mid jejunum. Patient without any leukocytosis on arrival, WBC was 8.4, currently 3.6 without any antibiotics. Tmax was 99.0
on arrival. Hemoglobin 11.9, hematocrit 33.3, platelets 268, sodium 139, potassium 3.7, chloride 104, CO2 24, BUN 11, creatinine 0.5, glucose 103, total bilirubin 0.9, AST 18, ALT 16, alk phos 61, albumin 3.9, lipase 41.
Impression:
Severe enteritis with partial small bowel obstruction likely infectious etiology given acute onset of symptoms vs less likely IBD. Lactic acid is normal so less likely ischemia. No prior abdominal surgeries so doubt adhesions causing PSBO
Plan:
-Surgery following
-She finally had a small BM today with bowel sounds heard, stool studies are pending, fecal calprotectin also pending
-Continue NG tube decompression, still with significant bilious drainage
-She finally had a small BM today!
-repeat CT 08/22 shows persistent SBO with almost no contrast passing through the transition point, may need surgery with worsening bowel obstruction on imaging DW
-started antibiotics 08/20
-Continue IV fluids
-correction of electrolytes
-Continue pantoprazole
Subjective
Subjective
Date of Service: August 23, 2025
She had a small bowel movement earlier today. finally passing some flatus
No rectal bleeding, afebrile, pain slightly improved today but CT from yesterday still shows persistent SBO with no contrast passing through the transition point
Objective
Data Reviewed
Laboratory Data:
Laboratory Results
08/23/25 06:55
08/23/25 06:55
Laboratory Results
Phosphorus 4.1 mg/dl (2.5-4.5) 08/22/25 06:55
Magnesium 1.7 mg/dl (1.6-2.3) 08/22/25 06:55
Total Bilirubin 0.9 mg/dl (0.2-1.3) 08/18/25 15:41
AST 18 U/L (14-36) 08/18/25 15:41
ALT 16 U/L (0-35) 08/18/25 15:41
Alkaline Phosphatase 61 U/L (38-126) 08/18/25 15:41
Lipase 41 U/L (23-300) 08/18/25 15:41
Vital Signs and I&O:
Vital Signs
Temp Pulse Resp BP Pulse Ox
98.0 F 68 16 117/66 95
08/23/25 08:06 08/23/25 08:06 08/23/25 08:06 08/23/25 08:06 08/23/25 08:06
I&O
08/22/25 08/23/25 08/24/25
06:59 06:59 06:59
Intake Total 1240 / 1240 1630 / 1630
Output Total 1130 / 1130 2350 / 2350
Balance 110 / 110 -720 / -720
Physical Exam
Physical Exam
Cardiology: Normal Sinus Rhythm
Pulmonary: Clear
GI: Soft, Distended and Tender ( especially in the upper abdomen epigastric and left upper quadrant, today she has high-pitched bowel sounds (past few days had very hypoactive bowel sounds))
--- NOTE | 2025-08-23 08:58 | W.PN.HOSP.TC ---
Addendum entered and electronically signed by Clarence Tripp MD 08/23/25 22:01:
Attending Addendum-
I saw and evaluated the patient. I reviewed the resident�s note and agree with findings and plan as documented in the resident�s note. Sub: passed flautus and small bm. continues to have abd distention and 'discomfort' Denies N/V fevers chills. Full
12 point ROS reviewed and negative except as documented Exam: Vitals reviewed in chart GEN-NAd HEENT NGT in palace draining bilious material heart RRR lungs clear abd soft distended pos BS LE no edema
Plan:
# Partial small bowel obstruction
-Severe enteritis, likely viral given her symptoms preceded by viral illness about 4 days ago.
-GI, surgery-on board , NG tube 1500mls
-Abdominal x-ray 08/23-SEVERE AIR DISTENTION of JEJUNAL SMALL BOWEL LOOPS in the left side of the abdomen and central abdomen which appears unchanged compared with the recent prior radiographic and CT examinations 08/22/2025 and 08/21/2025 - most
suggestive of a SEVERE PARTIAL SMALL BOWEL OBSTRUCTION or ILEUS. Contrast material in the ascending and sigmoid colon which appears to have passed into the colon since 08/22/2025.
-Continue NG tube with LIWS, antiemetics, pain control.
-NPO
-cont ciprofloxacin/flagyl -day 4, stool studies pending
-for diagnostic laparoscopy today
-may need to start TPN soon
# Hypokalemia-resolved, Potassium supplementation prn, CTM
# Hyponatremia-Resolved, continue to trend electrolytes with suction and fluid losses.
# DVT prophylaxis-
Hold Lovenox, SCD for the time being until after surgery.
# CODE STATUS-Full code
Time spent coordinating care, review of plan of care with resident, personally reviewed records in EMR, med rec, consults, notes, labs, radiology, d/w nursing � 52 mins
Original Note:
Today's Communication/Plan
-
OR today with Dr. Mclean
Flagyl changed from TID to BID
Assessment / Plan
Assessment / Plan
Assessment - Ms. Dueñas is a 54-year-old female with PMHx significant for IBS/ileus (many years ago) is admitted to the hospital for abdominal distention, pain and nausea with dry heaving found to enteritis with partial small bowel obstruction.
Plan-
#Small Bowel Obstruction
Severe enteritis, likely viral given her symptoms preceded by viral illness about 4 days ago.
NG tube in place, day 1 output at 2700, day 2 output overnight (08/20/2025) -950 mL, day 3 output - 950ml, day 4 - 1500.
AXR 08/21-small bowel obstruction with progression.
AXR 08/23-SEVERE AIR DISTENTION of JEJUNAL SMALL BOWEL LOOPS in the left side of the abdomen and central abdomen which appears unchanged compared with the recent prior radiographic and CT examinations 08/22/2025 and 08/21/2025 - most suggestive of a
SEVERE PARTIAL SMALL BOWEL OBSTRUCTION or ILEUS.Contrast material in the ascending and sigmoid colon which appears to have passed into the colon since 08/22/2025.
CT A/P w/ oral contrast 08/22: Small bowel obstruction. This appears high-grade with a discrete transition point in the lower abdomen at midline. Oral contrast remains within the stomach and proximal small bowel and does not pass through the
transition point.
Diffuse wall thickening of the more distal small bowel loops may be on the basis of an infectious or inflammatory enteritis.
- Surgery and GI following
--OR today 08/[address] Mclean
--Continue NG tube with negative suction, antiemetics, pain control prn
--PRN valium and lozenges for comfort
--F/u plan for surgery iso CT A/P above
--Per GI, Ciprofloxacin and Flagyl started 08/23
---Flagyl changed from TID to BID 08/23
--IV Protonix 40mg daily
--IV LR
--Tungsten Tender consult per surgery
- NPO
- Some flatus and one small BM on 08/23
-- f/u stool studies
# Hypokalemia
3.5 08/23
- s/p 40mEq IV KCl
- CTM
CODE STATUS: Full code
DVT ppx: SCDs; Hold Lovenox for the time being until after surgery.
Anticipated Discharge: 24 - 48 hours
Subjective/Interval History
-
Date of Service: August 23, 2025
- Reports passing some gas and a small BM this morning -- stool sample sent.
- She feels fatigued, emotional, and confused/overwhelmed by all the information she's receiving regarding her SBO.
- Plan to go to OR today with Dr. Mclean.
Objective Data
-
Labs:
Laboratory Results
08/23/25
06:55
WBC 6.1
Hgb 11.2 L
Hct 32.4 L
Plt Count 363
Sodium 136
Potassium 3.5
Chloride 99
Carbon Dioxide 31 H
BUN 8
Creatinine 0.4 L
Glucose 124 H
Calcium 8.5
Vital Signs:
Vital Signs
Temp Pulse Resp BP Pulse Ox
98.0 F 68 16 117/66 95
08/23/25 08:06 08/23/25 08:06 08/23/25 08:06 08/23/25 08:06 08/23/25 08:06
I&O
08/22/25 08/23/25 08/24/25
06:59 06:59 06:59
Intake Total 1240 / 1240 1630 / 1630
Output Total 1130 / 1130 2350 / 2350
Balance 110 / 110 -720 / -720
Review of Systems
-
History Source: Patient
All other systems: Reviewed and negative
Constitutional: Reports Fatigue
EENT: Reports Sore Throat (w/ NGT)
Abdomen/GI: Reports Abdominal Pain and Nausea
Psych: Reports Sad
Physical Exam
-
General: Well Developed, Well Nourished, Appears in Distress and Other (with NGT)
HEENT: Normocephalic, Atraumatic, Moist Mucous Membranes and Other (NGT in place to suction, draining bilious products)
Respiratory: Clear to Auscultation
Cardiac: Regular Rhythm
GI: Other (No BS, distended/hard)
Skin: Warm and Dry
Neuro: AO x 3
Psych: Anxious
[2025-08-23] MEDS: KCL 270 MEQ IV (09:44)
--- NOTE | 2025-08-23 10:41 | CM ---
Pt continues with NG tube to int suction.
NPO.
IV Fluids
Surgical consulted.
IV antibiotics continue.
Pain med as needed.
Offered VN she was unsure of her needs
PLAN will depend on hospital course of care
[2025-08-23 10:57] LABS: Cortisol, Random 19.6 ug/dl
--- NOTE | 2025-08-23 11:11 | W.SUR.PREOP ---
Pre-Operative Surgical Note
-
I have examined this patient prior to the performance of the scheduled procedure.
The patient's condition is unchanged from the time of the current History and
Physical and the patient is able to undergo the scheduled procedure.
--- NOTE | 2025-08-23 11:36 | W.PN.GS2 ---
Addendum entered and electronically signed by Josh Mclean MD 08/23/25 18:29:
I saw and examined the patient independently.
The Professional Fighter's note was reviewed and I agree with the note, assessment and plan except where noted below.
Comment: This is a 54-year-old female who presented with abdominal pain found to have severe gastroenteritis with possible obstructive component of unclear etiology.
Initially plan for a diagnostic laparoscopy today however due to minimal OR availability, we will push case to tomorrow.
N.p.o., NG tube to low intermittent wall suction.
Continue antibiotics.
Nutritional eval. She has been n.p.o. for over a week, would consider TPN.
She does not have any family. She did express that she would want to be full code chest compressions and intubation if there was a reasonable chance of survival however if she was in a prolonged vegetative state she would not want everything done.
We will reach out to the social media strategist to initiate establishing health care power of regulatory attorney for her as she does not have one and establishing a living will.
Original Note:
Today's Communication / Plan
-
DX lap today
Assessment / Plan
-
54 yo female presenting with severe gastroenteritis with obstructive component
AFVSS
NGT in place since 08/20 for decompression with high bilious outputs
Obstruction series from 08/21 with persistent distention/obstruction
CT imaging from 08/22 with PO contrast with persistent obstruction, complete and high-grade with a discrete transition point in the lower abdomen at midline
XR 08/23 with worsening SB distention
No flatus/stools
AFVSS
No leukocytosis, mild leukopenia
Plan:
Will plan diagnostic laparoscopy today
Appreciate GI eval
Initiated on Cipro/Flagyl 08/20
Stool studies sent and pending
Continue analgesics
C/w PPI for GI ppx
Medical management as per primary team
Pt has no family and no POA. Her neighbor is involved with her to assist but she does not want this friend to be her medical decision maker. She would like to be a full code and in the event that she requires mechanical ventilation for a reversible
condition; she would like to proceed. However, should her condition become end stage/terminal, she would not wish to prolong suffering and would like to be a DNR at that time. Will consult CM to assist patient with advance directives/living will.
Subjective Data
-
Date of Service: August 23, 2025
Pt seen and examined at bedside with Dr. Mclean. Denies vomiting, intermittent nausea. Passed a very small formed BM and maybe some minimal gas overnight. Abdominal discomfort comes in waves, still bloated.
Objective Data
-
Intake and Output
08/22/25 08/23/25 08/24/25
06:59 06:59 06:59
Intake Total 1240 / 1240 1630 / 1630 100 / 100
Output Total 1130 / 1130 2350 / 2350
Balance 110 / 110 -720 / -720 100 / 100
Intake:
IV fluids (Total) 640 / 640 960 / 960
IV piggybacks 600 / 600 670 / 670 100 / 100
Output:
Gastrointestinal tube output ( 950 / 950 1500 / 1500
Total)
[place] Sump 950 / 950 1500 / 1500
Urine, Voided 180 / 180 850 / 850
Other:
Number of approximated SMALL 1
amounts of urine
Number of approximated MODERATE 1 2
amounts of urine
Vital Signs
Temp Pulse Resp BP Pulse Ox
98.0 F 68 16 117/66 95
08/23/25 08:06 08/23/25 08:06 08/23/25 08:06 08/23/25 08:06 08/23/25 08:06
Lab Results
08/23/25 06:55
08/23/25 06:55
Calcium 8.5 mg/dl (8.4-10.2) 08/23/25 06:55
Phosphorus 4.1 mg/dl (2.5-4.5) 08/22/25 06:55
Magnesium 1.7 mg/dl (1.6-2.3) 08/22/25 06:55
Total Bilirubin 0.9 mg/dl (0.2-1.3) 08/18/25 15:41
AST 18 U/L (14-36) 08/18/25 15:41
ALT 16 U/L (0-35) 08/18/25 15:41
Alkaline Phosphatase 61 U/L (38-126) 08/18/25 15:41
Total Protein 7.0 g/dl (6.3-8.2) 08/18/25 15:41
Albumin 3.9 g/dl (3.5-5.0) 08/18/25 15:41
Physical Exam
-
NAD
ABD softly distended (moderate), mild to mod generalized tenderness, no rigidity/guarding
NGT with bilious outputs
[2025-08-23] MEDS: LR 1000 IV (13:30)
[2025-08-23 15:00] VITALS: BP 111/89
[2025-08-23] MEDS: LOVENOX 40 MG SC (18:18)
[2025-08-23 23:00] VITALS: BP 108/69
[2025-08-24] VITALS (11 sets, daily range): BP systolic 114–124; BP diastolic 44–74
[2025-08-24] MEDS: TORADOL 10 MG IV ×4 (01:07→20:28)
[2025-08-24] MEDS: LR 1000 IV ×2 (03:16→20:27)
[2025-08-24 06:21] LABS: Hematocrit 33.4 % (37.0-47.0); Hemoglobin 11.2 g/dL (12.0-16.0); Mean Corp Hgb Conc. 33.5 g/dL (33.0-37.0); Mean Corpuscular Volume 98.5 fL (81.0-99.0); Platelet Count 392 10^3/uL (130-400); Red Cell Dist. Width 13.0 % (11.5-14.5)
[2025-08-24 06:40] LABS: Blood Urea Nitrogen 5 mg/dl (7-17); Calcium 8.8 mg/dl (8.4-10.2); Carbon Dioxide 32 mmol/L (22-30); Chloride 100 mmol/L (98-107); Estimated Creatinine Clearance 95 ml/min; Glucose 94 mg/dl (70-99); Potassium 3.9 mmol/L (3.5-5.1); Sodium 138 mmol/L (135-145); eGFR > 60.00
[2025-08-24] MEDS: PROTONIX IV 40 MG IV (08:37)
[2025-08-24] MEDS: NSS (PRESERVATIVE FREE) 10 ML IV (08:37)
[2025-08-24] MEDS: CIPRO 400 MG 200 IV ×2 (08:41→20:27)
--- NOTE | 2025-08-24 10:37 | W.PN.HOSP.TC ---
Addendum entered and electronically signed by Clarence Tripp MD 08/24/25 18:21:
Attending Addendum-
I saw and evaluated the patient. I reviewed the resident�s note and agree with findings and plan as documented in the resident�s note. Sub: passed flatus and dark tarry BM this AM. less discomfort. Denies N/V fevers chills. Full 12 point ROS
reviewed and negative except as documented Exam: Vitals reviewed in chart GEN-NAd HEENT NGT in palace draining bilious material heart RRR lungs clear abd soft distended hyperactive BS LE no edema
Plan:
# Partial small bowel obstruction
-Severe enteritis, likely viral given her symptoms preceded by viral illness
-GI, surgery-on board , NG tube still draining significant quantities of bile
-Abdominal x-ray 08/23-SEVERE AIR DISTENTION of JEJUNAL SMALL BOWEL LOOPS in the left side of the abdomen and central abdomen which appears unchanged compared with the recent prior radiographic and CT examinations 08/22/2025 and 08/21/2025 - most
suggestive of a SEVERE PARTIAL SMALL BOWEL OBSTRUCTION or ILEUS. Contrast material in the ascending and sigmoid colon which appears to have passed into the colon since 08/22/2025.
-Continue NG tube with LIWS, antiemetics, pain control.
-NPO
-ciprofloxacin/flagyl -day 5 cont for now likely DC soon
-for diagnostic laparoscopy 08/24
-place PICC start TPN
# Hypokalemia-resolved, Potassium supplementation prn, CTM
# Hyponatremia-Resolved, continue to trend electrolytes with suction and fluid losses.
# DVT prophylaxis-
Hold Lovenox, SCD for the time being until after surgery.
# CODE STATUS-Full code
Time spent coordinating care, review of plan of care with resident, personally reviewed records in EMR, med rec, consults, notes, labs, radiology, d/w nursing � 51 mins
Original Note:
Today's Communication/Plan
-
OR today with Dr. Silver 2:55pm
PICC line ordered; plan for TPN post-op
Assessment / Plan
Assessment / Plan
Assessment - Ms. Dueñas is a 54-year-old female with PMHx significant for IBS/ileus (many years ago) is admitted to the hospital for abdominal distention, pain and nausea with dry heaving found to enteritis with partial small bowel obstruction.
Plan-
#Small Bowel Obstruction
Severe enteritis, likely viral given her symptoms preceded by viral illness about 4 days ago.
NG tube in place, day 1 output at 2700, day 2 output overnight (08/20/2025) -950 mL, day 3 output - 950ml, day 4 - 1500, day 5 - 1000.
AXR 08/21-small bowel obstruction with progression.
AXR 08/23-SEVERE AIR DISTENTION of JEJUNAL SMALL BOWEL LOOPS in the left side of the abdomen and central abdomen which appears unchanged compared with the recent prior radiographic and CT examinations 08/22/2025 and 08/21/2025 - most suggestive of a
SEVERE PARTIAL SMALL BOWEL OBSTRUCTION or ILEUS.Contrast material in the ascending and sigmoid colon which appears to have passed into the colon since 08/22/2025.
CT A/P w/ oral contrast 08/22: Small bowel obstruction. This appears high-grade with a discrete transition point in the lower abdomen at midline. Oral contrast remains within the stomach and proximal small bowel and does not pass through the
transition point.
Diffuse wall thickening of the more distal small bowel loops may be on the basis of an infectious or inflammatory enteritis.
- Surgery and GI following
--OR today 08/[address] Silver 2:55p
--Continue NG tube with negative suction, antiemetics, pain control prn
--PRN valium and lozenges for comfort
--Per GI, Ciprofloxacin and Flagyl started 08/23
---Flagyl changed from TID to BID 08/23
--IV Protonix 40mg daily
--IV LR
--Websphere Message Broker Developer consult per surgery
--Plan for TPN post-op
--PICC ordered
- NPO
- Some flatus and one small BM on 08/23
-- f/u stool studies
# Hypokalemia
3.9 08/24
- CTM
CODE STATUS: Full code
DVT ppx: SCDs; Hold Lovenox for the time being until after surgery.
Anticipated Discharge: 24 - 48 hours
Subjective/Interval History
-
Date of Service: August 24, 2025
- OR today 2:55pm for diagnostic lap; she feels nervous but hopes of relief after
- Had 'tarry' stool this morning, no flatus, waxing and waning discomfort. She isn't complaining of any pain, but endorses discomfort intermittently, mostly from NGT.
Objective Data
-
Labs:
Laboratory Results
08/24/25
05:42
WBC 6.1
Hgb 11.2 L
Hct 33.4 L
Plt Count 392
Sodium 138
Potassium 3.9
Chloride 100
Carbon Dioxide 32 H
BUN 5 L
Creatinine 0.5 L
Glucose 94
Calcium 8.8
Vital Signs:
Vital Signs
Temp Pulse Resp BP Pulse Ox
98.4 F 63 16 119/74 98
08/24/25 07:00 08/24/25 07:00 08/24/25 07:00 08/24/25 07:00 08/24/25 07:00
I&O
08/23/25 08/24/25 08/25/25
06:59 06:59 06:59
Intake Total 1630 / 1630 1270 / 1270
Output Total 2350 / 2350 2200 / 2200
Balance -720 / -720 -930 / -930
Review of Systems
-
History Source: Patient
All other systems: Reviewed and negative
Constitutional: Reports Sleep Disturbance and Weakness
EENT: Reports Sore Throat (iso NGT)
Abdomen/GI: Reports Constipated, Pain and Bloated
Physical Exam
-
General: Well Nourished, Appears in Distress and Other (NGT in place, pt appears tired and overwhelmed, sitting up in bed)
HEENT: Normocephalic, Atraumatic, Moist Mucous Membranes, PERRLA and Other (NGT)
Respiratory: Clear to Auscultation
Cardiac: Regular Rhythm and S1/S2
GI: Tender (intermittently), Distended and Other (Intermittent BS, mostly none)
Skin: Warm and Dry
Neuro: AO x 3
Psych: Calm and Depressed
--- NOTE | 2025-08-24 10:55 | W.PN.GI.CBS2 ---
Today's Communication / Plan
-
Will need to be started on TPN
Most likely will need surgery/Ex lap for persistent small bowel obstruction
continue antibiotics
Monitor and correct electrolytes
Assessment / Plan
-
54-year-old female with past medical history of psoriatic arthritis/psoriasis, history of adenomatous polyp, cervical dysplasia with history of HPV, breast augmentation otherwise no past surgical history who follows with a holistic/functional
medicine practitioner and takes over 50 supplements a day presents to the emergency room on 08/18/2025 with 4-day history of abdominal pain, dry heaves, nausea with previous fever and large episode of watery bowel movement day prior to presentation,
asked to evaluate for gastroenteritis. No further bowel movement since Saturday. No further fever. Persistent nausea with significant NG tube output greater than [address] abdomen and pelvis with IV contrast only findings with
severely abnormal loops of small bowel with moderate circumferential bowel wall thickening and dilatation in the proximal mid jejunum. Patient without any leukocytosis on arrival, WBC was 8.4, currently 3.6 without any antibiotics. Tmax was 99.0
on arrival. Hemoglobin 11.9, hematocrit 33.3, platelets 268, sodium 139, potassium 3.7, chloride 104, CO2 24, BUN 11, creatinine 0.5, glucose 103, total bilirubin 0.9, AST 18, ALT 16, alk phos 61, albumin 3.9, lipase 41.
Impression:
Severe enteritis with partial small bowel obstruction likely infectious etiology given acute onset of symptoms vs less likely IBD. Lactic acid is normal so less likely ischemia. No prior abdominal surgeries so doubt adhesions causing PSBO
Plan:
-She finally had a small BM 08/22 and 08/23 with bowel sounds heard, stool studies are pending, fecal calprotectin also pending
-Continue NG tube decompression, still with significant bilious drainage
-repeat CT 08/22 shows persistent SBO with almost no contrast passing through the transition point and abdomen x-ray from 08/23 still shows persistent partial small bowel obstruction, per surgery for ex lap today was unable to be done yesterday
-started antibiotics 08/20
-Continue IV fluids, agree with surgery that she will need to be started on TPN since she has been n.p.o. for almost a week
-correction of electrolytes
-Continue pantoprazole
- Further recommendation per surgery, GI will sign off and will be available as needed
Subjective
Subjective
Date of Service: August 24, 2025
Still with significant distention but she is passing flatus and had another small BM today. Noted results of x-ray yesterday which still shows persistent severe partial small bowel obstruction
Objective
Data Reviewed
Laboratory Data:
Laboratory Results
08/24/25 05:42
08/24/25 05:42
Laboratory Results
Phosphorus 4.1 mg/dl (2.5-4.5) 08/22/25 06:55
Magnesium 1.7 mg/dl (1.6-2.3) 08/22/25 06:55
Total Bilirubin 0.9 mg/dl (0.2-1.3) 08/18/25 15:41
AST 18 U/L (14-36) 08/18/25 15:41
ALT 16 U/L (0-35) 08/18/25 15:41
Alkaline Phosphatase 61 U/L (38-126) 08/18/25 15:41
Lipase 41 U/L (23-300) 08/18/25 15:41
08/23/2025 abdomen x ray
IMPRESSION:
1. SEVERE AIR DISTENTION of JEJUNAL SMALL BOWEL LOOPS in the left side of the abdomen and central abdomen which appears unchanged compared with the recent prior radiographic and CT examinations 08/22/2025 and 08/21/2025 - most suggestive of a SEVERE
PARTIAL SMALL BOWEL OBSTRUCTION or ILEUS.
2. Contrast material in the ascending and sigmoid colon which appears to have passed into the colon since 08/22/2025.
Vital Signs and I&O:
Vital Signs
Temp Pulse Resp BP Pulse Ox
98.4 F 63 16 119/74 98
08/24/25 07:00 08/24/25 07:00 08/24/25 07:00 08/24/25 07:00 08/24/25 07:00
I&O
08/23/25 08/24/25 08/25/25
06:59 06:59 06:59
Intake Total 1630 / 1630 1270 / 1270
Output Total 2350 / 2350 2200 / 2200
Balance -720 / -720 -930 / -930
Physical Exam
Physical Exam
Cardiology: Normal Sinus Rhythm
Pulmonary: Clear
GI: Soft, Distended and Tender (Especially in the upper abdomen epigastric and left upper quadrant, hypoactive bowel sounds)
[2025-08-24] MEDS: FLAGYL 500 MG 100 IV ×2 (11:26→22:46)
--- NOTE | 2025-08-24 13:22 | W.PN.GS2 ---
Today's Communication / Plan
-
-- Laparoscopic possible open exploration of the abdomen, possible bowel resection
Assessment / Plan
-
54 yo female presenting with severe gastroenteritis with obstructive component
Obstruction series from 08/21 with persistent distention/obstruction
CT imaging from 08/22 with PO contrast with persistent obstruction, complete and high-grade with a discrete transition point in the lower abdomen at midline
XR 08/23 with worsening SB distention
AFVSS
NGT in place since 08/20 for decompression, clear outputs today
Some signs of clinical improvement with passage of mild flatus and some stools. Some concern for the tarry nature with potential for ischemia or sloughing, though no no worsening pain, fevers, or rising WBC. Differential for cause of symptoms
remains broad and includes viral gastroenteritis with food bolus, Meckel's diverticulitis, adhesive SBO, and less likely malignancy. Previous discussion and plan for surgical evaluation.
Plan for a laparoscopic possible open exploration of the abdomen, possible bowel resection. The procedure itself, as well as the risks, benefits, and alternatives was discussed. Specifically, we discussed the risks of bleeding, infection, injury
to surrounding structures (bowel), anastomotic leak, delayed recovery with an open operation, hernia formation, and anesthetic complications. A brief discussion on postprocedural coverage was had. All questions answered. Consent signed.
Plan:
-- Laparoscopic possible open exploration of the abdomen, possible bowel resection
-- Appreciate GI eval
-- Abx Cipro/Flagyl 08/20
-- Stool studies sent and negative and pending
-- C/w PPI for GI ppx
-- Medical management as per primary team
Pt has no family and no POA. Her neighbor is involved with her to assist but she does not want this friend to be her medical decision maker. She would like to be a full code and in the event that she requires mechanical ventilation for a reversible
condition; she would like to proceed. However, should her condition become end stage/terminal, she would not wish to prolong suffering and would like to be a DNR at that time. Will consult CM to assist patient with advance directives/living will.
Subjective Data
-
Date of Service: August 24, 2025
No significant changes from yesterday. Continued mild crampy abdominal discomfort and bloating. No nausea or vomiting. Passing minimal flatus and now some dark or tarry stools.
Objective Data
-
Intake and Output
08/23/25 08/24/25 08/25/25
06:59 06:59 06:59
Intake Total 1630 / 1630 1270 / 1270
Output Total 2350 / 2350 2200 / 2200
Balance -720 / -720 -930 / -930
Intake:
IV fluids (Total) 960 / 960 800 / 800
IV piggybacks 670 / 670 470 / 470
Output:
Gastrointestinal tube output ( 1500 / 1500 1050 / 1050
Total)
[place] Sump 1500 / 1500 1050 / 1050
Urine, Voided 850 / 850 1150 / 1150
Other:
Number of approximated MODERATE 2
amounts of urine
Vital Signs
Temp Pulse Resp BP Pulse Ox
98.4 F 63 16 119/74 98
08/24/25 07:00 08/24/25 07:00 08/24/25 07:00 08/24/25 07:00 08/24/25 07:00
Lab Results
08/24/25 05:42
08/24/25 05:42
Calcium 8.8 mg/dl (8.4-10.2) 08/24/25 05:42
Phosphorus 4.1 mg/dl (2.5-4.5) 08/22/25 06:55
Magnesium 1.7 mg/dl (1.6-2.3) 08/22/25 06:55
Total Bilirubin 0.9 mg/dl (0.2-1.3) 08/18/25 15:41
AST 18 U/L (14-36) 08/18/25 15:41
ALT 16 U/L (0-35) 08/18/25 15:41
Alkaline Phosphatase 61 U/L (38-126) 08/18/25 15:41
Total Protein 7.0 g/dl (6.3-8.2) 08/18/25 15:41
Albumin 3.9 g/dl (3.5-5.0) 08/18/25 15:41
Physical Exam
-
Gen: NAD
Abd: soft, minimal tenderness, mild distension, non-peritoneal
Patient has a smith catheter: No
Patient has a central line: No
--- NOTE | 2025-08-24 15:33 | CM ---
Door was closed with sign on Do not disturb IV placement.
Pt went to OR did not see pt prior to OR.
Pt with NG tube to int suction.
NPO.IV Fluids
Pain med as needed.
Offered VN she was unsure of her needs.
Spoke with pt yesterday she needs a POA for her will.
Pt left guardian railroad car loader and Legal recourses information .
PLAN will depend on hospital course of care
--- NOTE | 2025-08-24 15:55 | PTCARENOTE ---
patient in operating room, denied need for analgesia prior to going down to surgery. left nare with NG tube draining brown/clear drainage to LIS. abd round mild distention and tenderness, c/o feeling bloated. c/o mild crampy abd discomfort.
continent of black tarry loose stool that was sent for specimen, vss, will continue to monitor.
--- NOTE | 2025-08-24 17:01 | W.IMMPOSTOP ---
Surgical Immed Post Op Note
-
Primary Surgeon: Adrianne
Assisting Surgeon: None
Pre-op Diagnosis: SBO
Post-op Diagnosis: Malignant SBO?, appendicitis
Procedure Performed: Diagnostic laparoscopy, laparoscopic SHANTA, laparoscopic appendectomy, biopsy of intraperitoneal nodule
Anesthesia Type: General
Specimen / Cultures:
1. Appendix
2. Ascites for cytology
3. Uterine nodule
Estimated Blood Loss: 3 cc
Complications: None
Operative Findings:
1. Adhesion within the RLQ tethering two separate loops of SB; whitish nodules on SB, liver and uterus (biopsied), ascites suctioned clear
2. Small bowel adhesions mobilized with sharp and blunt dissection, no serosal tear
3. Small amount of thick mucus drained at adhesion site near tip of appendix, appendectomy performed (mesentery taken with Ligasure, base with mathews load stapler with cuff of cecum)
4. Small bowel run and one further adhesion lysed
--- NOTE | 2025-08-24 18:15 | PTCARENOTE ---
patient returned from PACU via bed. arrived aax3, sleeping unless disturbed. easily awakens to voice. denies pain, lungs decreased at b/l bases, 2L NC maintained, apical regular. abd soft, round, hypo bsx4 quads, nontender, nondistended, 3
incisions with surgical glue and 1 puncture site with surgical glue. has not voided since surgery. left NG tube maintained to low intermittent suction, vss, will continue to monitor.
[2025-08-24] MEDS: LOVENOX 40 MG SC (19:27)
[2025-08-24] MEDS: ZOFRAN 4 MG IV (20:29)
[2025-08-25] MEDS: TORADOL 10 MG IV ×4 (01:35→19:46)
[2025-08-25 03:00] VITALS: BP 123/68
[2025-08-25 07:00] VITALS: BP 130/71
--- NOTE | 2025-08-25 09:09 | W.PN.GS2 ---
Today's Communication / Plan
-
-- NPO, IVF, NGT decompression
-- TPN ordered
Assessment / Plan
-
54 yo female presenting with N/V and abdominal pain
POD#1 s/p diagnostic laparoscopy, SHANTA, appendectomy, biopsy of intra-peritoneal nodules
Obstruction series from 08/21 with persistent distention/obstruction
CT imaging from 08/22 with PO contrast with persistent obstruction, complete and high-grade with a discrete transition point in the lower abdomen at midline
XR 08/23 with worsening SB distention
AFVSS
NGT in place since 08/20 for decompression, light bilious, 375 cc since OR
Operative findings were reviewed with the patient. Evidence of chronic appendicitis with some concern for a malignant component given the gross appearance as well as nodules visualized on the small bowel and uterus. Small bowel obstruction
secondary to small bowel adhesions to the appendix. Lysis performed and bowel run. Appendectomy performed (pathology pending).
Recovering well overall. Ileus watch given the duration of her obstruction and underlying pathophysiology. Tumor markers ordered. TPN ordered given her prolonged NPO status.
Plan:
-- NPO, IVF, NGT decompression
-- TPN ordered
-- Pain control: Tylenol, Toradol, IV Dilaudid PRN
-- Abx: None indicated from General Surgery perspective
-- DVT: Lovenox, SCDs
-- GI PPI
Pt has no family and no POA. Her neighbor is involved with her to assist but she does not want this friend to be her medical decision maker. She would like to be a full code and in the event that she requires mechanical ventilation for a reversible
condition; she would like to proceed. However, should her condition become end stage/terminal, she would not wish to prolong suffering and would like to be a DNR at that time. Will consult CM to assist patient with advance directives/living will.
Subjective Data
-
Date of Service: August 25, 2025
Patient complaints. Pain overall well-controlled. Denies nausea or vomiting. Passing small amounts of flatus, no BM. Afebrile.
Objective Data
-
Intake and Output
08/24/25 08/25/25 08/26/25
06:59 06:59 06:59
Intake Total 1270 / 1270 400 / 400
Output Total 2200 / 2200 775 / 775
Balance -930 / -930 -375 / -375
Intake:
Oral fluids 0 / 0
IV fluids (Total) 800 / 800 100 / 100
normosol 100 / 100
IV piggybacks 470 / 470 300 / 300
Output:
Gastrointestinal tube output ( 1050 / 1050 375 / 375
Total)
[place] Sump 1050 / 1050 375 / 375
Urine, Smith 400 / 400
Urine, Voided 1150 / 1150
Other:
Number of approximated MODERATE 4
amounts of urine
Vital Signs
Temp Pulse Resp BP Pulse Ox
98.4 F 67 16 130/71 100
08/25/25 07:00 08/25/25 07:00 08/25/25 07:00 08/25/25 07:00 08/25/25 07:00
Calcium 8.8 mg/dl (8.4-10.2) 08/24/25 05:42
Phosphorus 4.1 mg/dl (2.5-4.5) 08/22/25 06:55
Magnesium 1.7 mg/dl (1.6-2.3) 08/22/25 06:55
Total Bilirubin 0.9 mg/dl (0.2-1.3) 08/18/25 15:41
AST 18 U/L (14-36) 08/18/25 15:41
ALT 16 U/L (0-35) 08/18/25 15:41
Alkaline Phosphatase 61 U/L (38-126) 08/18/25 15:41
Total Protein 7.0 g/dl (6.3-8.2) 08/18/25 15:41
Albumin 3.9 g/dl (3.5-5.0) 08/18/25 15:41
Physical Exam
-
Gen: NAD
Abd: soft, mild tenderness, mild distension, non-peritoneal, incisions c/d/i - no erythema, ecchymosis or drainage
Patient has a smith catheter: No
Patient has a central line: Yes
[2025-08-25] MEDS: CIPRO 400 MG 200 IV (09:11)
[2025-08-25] MEDS: PROTONIX IV 40 MG IV (09:11)
[2025-08-25] MEDS: NSS (PRESERVATIVE FREE) 10 ML IV (09:12)
[2025-08-25] MEDS: DILAUDID 0.25 MG IV ×4 (09:14→21:00)
[2025-08-25] MEDS: ZOFRAN 4 MG IV (09:18)
--- NOTE | 2025-08-25 09:19 | W.PN.HOSP.TC ---
Addendum entered and electronically signed by Clarence Tripp MD 08/25/25 23:22:
Attending Addendum-
I saw and evaluated the patient. I reviewed the resident�s note and agree with findings and plan as documented in the resident�s note. Sub: passed flatus no BM. Denies N/V fevers chills. Full 12 point ROS reviewed and negative except as documented
Exam: Vitals reviewed in chart GEN-NAD HEENT NGT in place draining bilious material heart RRR lungs clear abd soft distended hyperactive BS LE no edema RUE PICC in place
Plan:
# Severe Partial small bowel obstruction
-possibly malignant
-GI, surgery-on board , NG tube still draining significant quantities of bile
-Abdominal x-ray 08/23-SEVERE AIR DISTENTION of JEJUNAL SMALL BOWEL LOOPS in the left side of the abdomen and central abdomen which appears unchanged compared with the recent prior radiographic and CT examinations 08/22/2025 and 08/21/2025 - most
suggestive of a SEVERE PARTIAL SMALL BOWEL OBSTRUCTION or ILEUS. Contrast material in the ascending and sigmoid colon which appears to have passed into the colon since 08/22/2025.
-Continue NG tube with LIWS, antiemetics, pain control.
-NPO
-DC ciprofloxacin/flagyl
-08/24-Diagnostic laparoscopy, laparoscopic lysis of adhesions, laparoscopic appendectomy, biopsy of intraperitoneal nodule.
-path-pend
-placed PICC start TPN
# Hypokalemia-resolved, Potassium supplementation prn, CTM
# Hyponatremia-Resolved, continue to trend electrolytes with suction and fluid losses.
# DVT prophylaxis-restart Lovenox
# CODE STATUS-Full code
Time spent coordinating care, review of plan of care with resident, personally reviewed records in EMR, med rec, consults, notes, labs, radiology, d/w nursing � 52 mins
Original Note:
Today's Communication/Plan
-
POD#1, NPO, NGT suction
DC Antibiotics
Pain control with prn IV dilaudid, prn APAP, and Toradol 10mg q6h
f/u tumor markers, path
Assessment / Plan
Assessment / Plan
Assessment - Ms. Dueñas is a 54-year-old female with PMHx significant for IBS/ileus (many years ago) is admitted to the hospital for abdominal distention, pain and nausea with dry heaving found small bowel obstruction s/p diagnostic laparoscopy, SHANTA,
appendectomy, biopsy of intra-peritoneal nodules with Dr. Silver on 08/24.
Imaging:
AXR 08/21-small bowel obstruction with progression.
AXR 08/23-SEVERE AIR DISTENTION of JEJUNAL SMALL BOWEL LOOPS in the left side of the abdomen and central abdomen which appears unchanged compared with the recent prior radiographic and CT examinations 08/22/2025 and 08/21/2025 - most suggestive of a
SEVERE PARTIAL SMALL BOWEL OBSTRUCTION or ILEUS.Contrast material in the ascending and sigmoid colon which appears to have passed into the colon since 08/22/2025.
CT A/P w/ oral contrast 08/22: Small bowel obstruction. This appears high-grade with a discrete transition point in the lower abdomen at midline. Oral contrast remains within the stomach and proximal small bowel and does not pass through the
transition point.
Diffuse wall thickening of the more distal small bowel loops may be on the basis of an infectious or inflammatory enteritis.
Plan-
#Small Bowel Obstruction s/p diagnostic laparoscopy, SHANTA, appendectomy, biopsy of intra-peritoneal nodules
Severe enteritis, likely viral given her symptoms preceded by viral illness. Post-op, there is concern for malignant SBO. Evidence of chronic appendicitis with some concern for a malignant component given the gross appearance as well as nodules
visualized on the small bowel and uterus. Small bowel obstruction secondary to small bowel adhesions to the appendix. Lysis performed and bowel run.
- Surgery and GI following
--s/p OR on 08/[address] Silver
---NGT decompression
----NGT output: day 1 (08/19) - 2700, day 2 - 950, day 3 950, day 4 - 1500, day 5 - 1000, day 6 (POD#1) - 375.
---NPO; TPN ordered via PICC (placed 08/24)
---Pain control: Tylenol 1000mg prn, Toradol 10mg IV q6h, IV Dilaudid 0.25mg q3h prn
---f/u Chromogranin A, CMV micro, appendix path, and nodule bx
--PRN valium and lozenges for comfort
--Per GI, Ciprofloxacin and Flagyl started 08/23
---Flagyl changed from TID to BID 08/23
---DC Antibiotics 08/25
--IV Protonix 40mg daily
--IV LR until TPN started
- Some flatus and one small BM on 08/23
# Hypokalemia
3.9 08/24
- CTM
CODE STATUS: Full code
DVT ppx: Lovenox
Anticipated Discharge: > 48 hours
Subjective/Interval History
-
Date of Service: August 25, 2025
- This morning, laying in bed POD#1 with NGT; endorsing discomfort from NGT and 7/10 pain. She's concerned about narcotics for pain control as she doesn't want to slow her gut down. Discussed with surgery - ok for 0.25mg Dilaudid q3h prn and APAP
1000mg prn.
Objective Data
-
Labs:
Laboratory Results
08/25/25 08/25/25
09:00 09:04
WBC Pending
Hgb Pending
Hct Pending
Plt Count Pending
Sodium Pending Pending
Potassium Pending Pending
Chloride Pending Pending
Carbon Dioxide Pending Pending
BUN Pending Pending
Creatinine Pending Pending
Glucose Pending Pending
Calcium Pending Pending
Total Bilirubin Pending Pending
AST Pending Pending
ALT Pending Pending
Alkaline Phosphatase Pending Pending
Vital Signs:
Vital Signs
Temp Pulse Resp BP Pulse Ox
98.4 F 67 16 130/71 100
08/25/25 07:00 08/25/25 07:00 08/25/25 07:00 08/25/25 07:00 08/25/25 07:00
I&O
08/24/25 08/25/25 08/26/25
06:59 06:59 06:59
Intake Total 1270 / 1270 400 / 400
Output Total 2200 / 2200 775 / 775
Balance -930 / -930 -375 / -375
[2025-08-25 09:22] LABS: Hematocrit 32.1 % (37.0-47.0); Hemoglobin 11.1 g/dL (12.0-16.0); Mean Corp Hgb Conc. 34.6 g/dL (33.0-37.0); Mean Corpuscular Volume 98.8 fL (81.0-99.0); Nucleated Red Blood Cells % 0 %; Platelet Count 425 10^3/uL (130-400); Red Cell Dist. Width 12.8 % (11.5-14.5)
[2025-08-25 09:43] LABS: ALT (SGPT) 46 U/L (0-35); AST (SGOT) 56 U/L (14-36); Albumin 3.1 g/dl (3.5-5.0); Alkaline Phosphatase 47 U/L (38-126); Blood Urea Nitrogen 3 mg/dl (7-17); Calcium 8.7 mg/dl (8.4-10.2); Carbon Dioxide 27 mmol/L (22-30); Chloride 100 mmol/L (98-107); Estimated Creatinine Clearance 95 ml/min; Glucose 98 mg/dl (70-99); Magnesium 1.8 mg/dl (1.6-2.3); Potassium 4.0 mmol/L (3.5-5.1); Sodium 135 mmol/L (135-145); Total Protein 6.1 g/dl (6.3-8.2); Triglycerides 100 mg/dl (10-149); eGFR > 60.00
[2025-08-25 11:06] VITALS: BP 119/67
[2025-08-25] MEDS: LR 1000 IV (12:03)
[2025-08-25] MEDS: FLAGYL 500 MG 100 IV (12:04)
[2025-08-25 15:00] VITALS: BP 98/68
[2025-08-25 15:13] LABS: CEA 1.09 ng/ml
[2025-08-25 16:51] VITALS: BP 119/70; PULSE 75
--- NOTE | 2025-08-25 17:21 | CM ---
Postop day 1
Pt with NG tube to int suction.
NPO.IV Fluids
Pain med as needed.
Offered VN she was unsure of her needs.
PT eval done
Pt received guardian civil litigation attorney and Legal recourses information .
PLAN Home with possible VN but pt may refuse VN
[2025-08-25] MEDS: LOVENOX 40 MG SC (17:24)
[2025-08-25] MEDS: Parenteral Nutrition, Central 1380 IV (20:48)
[2025-08-25 23:13] LABS: Glucose - Point of Care 95 mg/dl (70-99)
[2025-08-25 23:50] VITALS: BP 116/67
[2025-08-26] MEDS: TORADOL 10 MG IV ×2 (01:06→06:12)
[2025-08-26] MEDS: LR IV (02:14)
[2025-08-26] MEDS: DILAUDID 0.25 MG IV ×4 (03:21→21:20)
[2025-08-26 04:58] LABS: Blood Urea Nitrogen 5 mg/dl (7-17); Calcium 8.5 mg/dl (8.4-10.2); Carbon Dioxide 30 mmol/L (22-30); Chloride 101 mmol/L (98-107); Estimated Creatinine Clearance 95 ml/min; Glucose 137 mg/dl (70-99); Magnesium 1.9 mg/dl (1.6-2.3); Potassium 3.6 mmol/L (3.5-5.1); Sodium 137 mmol/L (135-145); eGFR > 60.00
[2025-08-26 06:00] VITALS: BMI 19.4
[2025-08-26 06:03] LABS: Glucose - Point of Care 116 mg/dl (70-99)
[2025-08-26 07:26] VITALS: BP 116/66
--- NOTE | 2025-08-26 08:14 | W.PN.GS2 ---
Today's Communication / Plan
-
-- NGT decompression (OK to begin clamping tube)
-- TPN re-ordered
Assessment / Plan
-
54 yo female presenting with N/V and abdominal pain
POD#2 s/p diagnostic laparoscopy, SHANTA, appendectomy, biopsy of intra-peritoneal nodules
Obstruction series from 08/21 with persistent distention/obstruction
CT imaging from 08/22 with PO contrast with persistent obstruction, complete and high-grade with a discrete transition point in the lower abdomen at midline
XR 08/23 with worsening SB distention
AFVSS
NGT in place since 08/20 for decompression, light bilious, 375 cc since OR
Operative findings were reviewed with the patient. Evidence of chronic appendicitis with some concern for a malignant component given the gross appearance as well as nodules visualized on the small bowel and uterus. Small bowel obstruction
secondary to small bowel adhesions to the appendix. Lysis performed and bowel run. Appendectomy performed (pathology pending).
Recovering well overall. Ileus watch given the duration of her obstruction and underlying pathophysiology. Tumor markers ordered. TPN ordered given her prolonged NPO status.
Plan:
-- NPO, IVF, NGT decompression (OK to begin clamping tube)
-- TPN re-ordered
-- Pain control: Tylenol, Toradol, IV Dilaudid PRN
-- Abx: None indicated from General Surgery perspective
-- DVT: Lovenox, SCDs
-- GI PPI
Pt has no family and no POA. Her neighbor is involved with her to assist but she does not want this friend to be her medical decision maker. She would like to be a full code and in the event that she requires mechanical ventilation for a reversible
condition; she would like to proceed. However, should her condition become end stage/terminal, she would not wish to prolong suffering and would like to be a DNR at that time. Will consult CM to assist patient with advance directives/living will.
Subjective Data
-
Date of Service: August 26, 2025
Reports some mild RLQ and lower abdominal cramping/soreness. No nausea or vomiting. Continues to pass small amounts of flatus, no BM. Afebrile
Objective Data
-
Intake and Output
08/25/25 08/26/25 08/27/25
06:59 06:59 06:59
Intake Total 400 / 400 120 / 120
Output Total 775 / 775 150 / 150
Balance -375 / -375 -30 / -30
Intake:
Oral fluids 0 / 0 120 / 120
IV fluids (Total) 100 / 100
normosol 100 / 100
IV piggybacks 300 / 300
Output:
Gastrointestinal tube output ( 375 / 375 150 / 150
Total)
[place] Sump 375 / 375 150 / 150
Urine, [place] 400 / 400
Other:
Number of approximated SMALL 1
amounts of urine
Number of approximated MODERATE 4 3
amounts of urine
Vital Signs
Temp Pulse Resp BP Pulse Ox
98.2 F 68 17 116/66 97
08/26/25 07:26 08/26/25 07:26 08/26/25 07:26 08/26/25 07:26 08/26/25 07:26
Lab Results
08/25/25 09:00
08/26/25 04:21
Calcium 8.5 mg/dl (8.4-10.2) 08/26/25 04:21
Phosphorus 3.1 mg/dl (2.5-4.5) 08/26/25 04:21
Magnesium 1.9 mg/dl (1.6-2.3) 08/26/25 04:21
Total Bilirubin Cancelled 08/25/25 09:04
AST Cancelled 08/25/25 09:04
ALT Cancelled 08/25/25 09:04
Alkaline Phosphatase Cancelled 08/25/25 09:04
Total Protein Cancelled 08/25/25 09:04
Albumin Cancelled 08/25/25 09:04
Physical Exam
-
Gen: NAD
HEENT: non-bilious output
Abd: soft, mild tenderness, mild distension, non-peritoneal
Patient has a smith catheter: No
Patient has a central line: Yes
[2025-08-26] MEDS: NSS (PRESERVATIVE FREE) 10 ML IV (09:59)
[2025-08-26] MEDS: PROTONIX IV 40 MG IV (09:59)
[2025-08-26 11:53] LABS: Glucose - Point of Care 124 mg/dl (70-99)
--- NOTE | 2025-08-26 12:16 | W.PN.HOSP.TC ---
Addendum entered and electronically signed by Clarence Tripp MD 08/26/25 21:30:
Attending Addendum-
I saw and evaluated the patient. I reviewed the resident�s note and agree with findings and plan as documented in the resident�s note. Sub: passing flatus no BM. Denies N/V fevers chills. complains of pain from NG tube Full 12 point ROS reviewed and
negative except as documented Exam: Vitals reviewed in chart GEN-NAD HEENT NGT in place draining bilious material heart RRR lungs clear abd soft distended hyperactive BS LE no edema RUE PICC in place
Plan:
# Severe Partial small bowel obstruction
-possibly malignant
-GI, surgery-on board , NG tube still draining significant quantities of bile
-Abdominal x-ray 08/23-SEVERE AIR DISTENTION of JEJUNAL SMALL BOWEL LOOPS in the left side of the abdomen and central abdomen which appears unchanged compared with the recent prior radiographic and CT examinations 08/22/2025 and 08/21/2025 - most
suggestive of a SEVERE PARTIAL SMALL BOWEL OBSTRUCTION or ILEUS. Contrast material in the ascending and sigmoid colon which appears to have passed into the colon since 08/22/2025.
-NGT clamp trial 08/26
-cont NPO
-08/24-Diagnostic laparoscopy, laparoscopic lysis of adhesions, laparoscopic appendectomy, biopsy of intraperitoneal nodule. POD#2
-path-pend
-cont TPN -08/25
-pain control tylenol, dilaudid, encourage ambulation
# Hypokalemia-resolved, Potassium supplementation prn
# Hyponatremia-Resolved
# DVT prophylaxis-cont Lovenox
# CODE STATUS-Full code
Dispo- hopeful DC home soon when bowel function returns and taking PO
Time spent coordinating care, review of plan of care with resident, personally reviewed records in EMR, med rec, consults, notes, labs, radiology, d/w nursing � 51 mins
Original Note:
Today's Communication/Plan
-
Continue NGT to suction, ok to start clamping per surgery
--f/u exact orders for this
Nutrition & pharmacy to see her today re: supplement list
Assessment / Plan
Assessment / Plan
Assessment - Ms. Dueñas is a 54-year-old female with PMHx significant for IBS/ileus (many years ago) is admitted to the hospital for abdominal distention, pain and nausea with dry heaving found small bowel obstruction s/p diagnostic laparoscopy, SHANTA,
appendectomy, biopsy of intra-peritoneal nodules with Dr. Silver on 08/24.
Imaging:
AXR 08/21-small bowel obstruction with progression.
AXR 08/23-SEVERE AIR DISTENTION of JEJUNAL SMALL BOWEL LOOPS in the left side of the abdomen and central abdomen which appears unchanged compared with the recent prior radiographic and CT examinations 08/22/2025 and 08/21/2025 - most suggestive of a
SEVERE PARTIAL SMALL BOWEL OBSTRUCTION or ILEUS.Contrast material in the ascending and sigmoid colon which appears to have passed into the colon since 08/22/2025.
CT A/P w/ oral contrast 08/22: Small bowel obstruction. This appears high-grade with a discrete transition point in the lower abdomen at midline. Oral contrast remains within the stomach and proximal small bowel and does not pass through the
transition point.
Diffuse wall thickening of the more distal small bowel loops may be on the basis of an infectious or inflammatory enteritis.
Plan-
#Small Bowel Obstruction s/p diagnostic laparoscopy, SHANTA, appendectomy, biopsy of intra-peritoneal nodules
Severe enteritis, likely viral given her symptoms preceded by viral illness. Post-op, there is concern for malignant SBO. Evidence of chronic appendicitis with some concern for a malignant component given the gross appearance as well as nodules
visualized on the small bowel and uterus. Small bowel obstruction secondary to small bowel adhesions to the appendix. Lysis performed and bowel run.
- Surgery and GI following
-- s/p OR on 08/[address] Silver
---NGT decompression; ok to start clamping per surgery, f/u on exact orders
----NGT output: day 1 (08/19) - 2700, day 2 - 950, day 3 950, day 4 - 1500, day 5 - 1000, day 6 (POD#1) - 375, day 7 - 150.
---NPO; TPN ordered via PICC (placed 08/24)
---Pain control: Tylenol 1000mg prn, Toradol 10mg IV q6h - dc today, IV Dilaudid 0.25mg q3h prn
---f/u Chromogranin A, CMV micro, appendix path, and nodule bx
--PRN valium and lozenges for comfort
--Per GI, Ciprofloxacin and Flagyl started 08/23
---Flagyl changed from TID to BID 08/23
---DC Antibiotics 08/25
--IV Protonix 40mg daily
--IV LR until TPN started
- Some flatus and one small BM on 08/23
- Nutrition and pharmacy to discuss supplement list
# Hypokalemia
3.9 08/24
- CTM
CODE STATUS: Full code
DVT ppx: Lovenox
Anticipated Discharge: 24 - 48 hours
Subjective/Interval History
-
Date of Service: August 26, 2025
- This morning, feeling discomfort from NGT and pain in abdomen, but avoiding narcotics. I encouraged her to use her Dilaudid in the interim and that it wouldn't slow her progress.
- She continues to pass gas, but no BM.
- She requested to speak with nutrition and pharmacy about her supplement list and outpatient planning regarding that.
Objective Data
-
Labs:
Laboratory Results
08/26/25
04:21
Sodium 137
Potassium 3.6
Chloride 101
Carbon Dioxide 30
BUN 5 L
Creatinine 0.4 L
Glucose 137 H
Calcium 8.5
Vital Signs:
Vital Signs
Temp Pulse Resp BP Pulse Ox
98.2 F 68 17 116/66 97
08/26/25 07:26 08/26/25 07:26 08/26/25 07:26 08/26/25 07:26 08/26/25 07:26
I&O
08/25/25 08/26/25 08/27/25
06:59 06:59 06:59
Intake Total 400 / 400 120 / 120
Output Total 775 / 775 150 / 150
Balance -375 / -375 -30 / -30
Physical Exam
-
General: Well Developed, Well Nourished, Comfortable and Appears in Distress (from NGT)
HEENT: Normocephalic, Atraumatic, Moist Mucous Membranes and Other (NGT in place)
GI: Soft, Nontender, Normal Bowel Sounds and Distended
Skin: Warm and Dry
Neuro: AO x 3
Psych: Calm and Intact Judgement/Insight
[2025-08-26 14:57] VITALS: BP 139/81
[2025-08-26] MEDS: ZOFRAN 4 MG IV ×2 (15:01→21:20)
[2025-08-26 16:43] LABS: Glucose - Point of Care 135 mg/dl (70-99)
[2025-08-26] MEDS: LOVENOX 40 MG SC (18:03)
--- NOTE | 2025-08-26 20:04 | PTCARENOTE ---
NGT clamped and pt ambulated the halls twice this shift. Abd distended. Hypoactive BS. + Flatus.
[2025-08-26] MEDS: Parenteral Nutrition, Central 1380 IV (21:03)
[2025-08-26 22:22] LABS: Calprotectin, Fecal >3000 ug/g (<=49)
[2025-08-26 23:02] VITALS: BP 113/55
[2025-08-27 00:05] LABS: Glucose - Point of Care 144 mg/dl (70-99)
[2025-08-27] MEDS: DILAUDID 0.25 MG IV ×5 (00:11→20:33)
[2025-08-27] MEDS: ZOFRAN 4 MG IV ×3 (03:48→20:32)
[2025-08-27 04:31] LABS: Glucose - Point of Care 137 mg/dl (70-99)
[2025-08-27 06:00] VITALS: BMI 18.9
[2025-08-27 06:36] LABS: Blood Urea Nitrogen 7 mg/dl (7-17); Calcium 8.7 mg/dl (8.4-10.2); Carbon Dioxide 34 mmol/L (22-30); Chloride 103 mmol/L (98-107); Estimated Creatinine Clearance 93 ml/min; Glucose 153 mg/dl (70-99); Magnesium 2.0 mg/dl (1.6-2.3); Potassium 3.8 mmol/L (3.5-5.1); Sodium 139 mmol/L (135-145); eGFR > 60.00
[2025-08-27 07:00] VITALS: BP 132/76
[2025-08-27 08:21] LABS: Hematocrit 33.3 % (37.0-47.0); Hemoglobin 11.2 g/dL (12.0-16.0); Mean Corp Hgb Conc. 33.6 g/dL (33.0-37.0); Mean Corpuscular Volume 99.1 fL (81.0-99.0); Nucleated Red Blood Cells % 0 %; Platelet Count 478 10^3/uL (130-400); Red Cell Dist. Width 13.1 % (11.5-14.5)
[2025-08-27] MEDS: NSS (PRESERVATIVE FREE) 10 ML IV (08:45)
[2025-08-27] MEDS: PROTONIX IV 40 MG IV (08:45)
--- NOTE | 2025-08-27 09:08 | W.PN.HOSP.TC ---
Addendum entered and electronically signed by Clarence Tripp MD 08/27/25 20:58:
Attending Addendum-
I saw and evaluated the patient. I reviewed the resident�s note and agree with findings and plan as documented in the resident�s note. Sub: passing flatus no BM. Denies N/V fevers chills. complains of pain from NG tube and lower abdominal pain. 'i
really want this tube out!' Full 12 point ROS reviewed and negative except as documented Exam: Vitals reviewed in chart GEN-NAD HEENT NGT in place draining bilious material heart RRR lungs clear abd soft distended hyperactive BS LE no edema RUE PICC
in place
Plan:
# Severe Partial small bowel obstruction
-possibly malignant
-Abdominal x-ray 08/23-SEVERE AIR DISTENTION of JEJUNAL SMALL BOWEL LOOPS in the left side of the abdomen and central abdomen which appears unchanged compared with the recent prior radiographic and CT examinations 08/22/2025 and 08/21/2025 - most
suggestive of a SEVERE PARTIAL SMALL BOWEL OBSTRUCTION or ILEUS. Contrast material in the ascending and sigmoid colon which appears to have passed into the colon since 08/22/2025.
-NGT clamp trial 08/27
-cont NPO
-08/24-Diagnostic laparoscopy, laparoscopic lysis of adhesions, laparoscopic appendectomy, biopsy of intraperitoneal nodule. POD#2
-path-pend
-cont TPN -started 08/25- monitor electrolytes closely
-pain control tylenol, increase Dilaudid, encourage ambulation
# Hypokalemia-resolved, Potassium supplementation prn
# DVT prophylaxis-cont Lovenox
# CODE STATUS-Full code
Dispo-eventual DC home
Time spent coordinating care, review of plan of care with resident, personally reviewed records in EMR, med rec, consults, notes, labs, radiology, d/w nursing � 51 mins
Original Note:
Today's Communication/Plan
-
NGT Clamp Trial today
IV Dilaudid 0.25mg q3h prn for mod pain and IV Dilaudid 0.5mg q4h prn for severe pain
Assessment / Plan
Assessment / Plan
Assessment - Ms. Dueñas is a 54-year-old female with PMHx significant for IBS/ileus (many years ago) is admitted to the hospital for abdominal distention, pain and nausea with dry heaving found small bowel obstruction s/p diagnostic laparoscopy, SHANTA,
appendectomy, biopsy of intra-peritoneal nodules with Dr. Silver on 08/24.
Imaging:
AXR 08/21-small bowel obstruction with progression.
AXR 08/23-SEVERE AIR DISTENTION of JEJUNAL SMALL BOWEL LOOPS in the left side of the abdomen and central abdomen which appears unchanged compared with the recent prior radiographic and CT examinations 08/22/2025 and 08/21/2025 - most suggestive of a
SEVERE PARTIAL SMALL BOWEL OBSTRUCTION or ILEUS.Contrast material in the ascending and sigmoid colon which appears to have passed into the colon since 08/22/2025.
CT A/P w/ oral contrast 08/22: Small bowel obstruction. This appears high-grade with a discrete transition point in the lower abdomen at midline. Oral contrast remains within the stomach and proximal small bowel and does not pass through the
transition point.
Diffuse wall thickening of the more distal small bowel loops may be on the basis of an infectious or inflammatory enteritis.
Plan-
#Small Bowel Obstruction s/p diagnostic laparoscopy, SHANTA, appendectomy, biopsy of intra-peritoneal nodules
Severe enteritis, likely viral given her symptoms preceded by viral illness. Post-op, there is concern for malignant SBO. Evidence of chronic appendicitis with some concern for a malignant component given the gross appearance as well as nodules
visualized on the small bowel and uterus. Small bowel obstruction secondary to small bowel adhesions to the appendix. Lysis performed and bowel run.
- Surgery and GI following
-- s/p OR on 08/[address] Silver
---NGT decompression; clamp trial today
----NGT output: day 1 (08/19) - 2700, day 2 - 950, day 3 950, day 4 - 1500, day 5 - 1000, day 6 (POD#1) - 375, day 7 - 150.
---NPO; TPN ordered via PICC (placed 08/24)
---Pain control: Tylenol 1000mg prn, s/p Toradol 10mg IV q6h, IV Dilaudid 0.25mg q3h prn for mod pain and IV Dilaudid 0.5mg q4h prn for severe pain
---f/u Chromogranin A, CMV micro, appendix path, and nodule bx
--PRN valium and lozenges for comfort
--Per GI, Ciprofloxacin and Flagyl started 08/23
---Flagyl changed from TID to BID 08/23
---DC Antibiotics 08/25
--IV Protonix 40mg daily
--IV LR until TPN started
- Some flatus and one small BM on 08/23
- Nutrition and pharmacy to discuss supplement list
# Hypokalemia, resolved
3.9 08/24
- CTM
CODE STATUS: Full code
DVT ppx: Lovenox
Anticipated Discharge: > 48 hours
Subjective/Interval History
-
Date of Service: August 27, 2025
- This morning, in 06/03 abd pain. She reports the Dilaudid 0.25mg at 4am didn't help her. We discussed trying it once more and considering increasing to 0.5mg if still no relief. Update from nurse that second dose was effective and Ms. Dueñas wants to
continue on the 0.25mg. I put an order to indicated that dose for moderate pain and 0.5mg q4h for severe pain. She was amenable to this.
- Otherwise, reports gas today, still no BM. NGT clamp trial, which she's really keen for.
Objective Data
-
Labs:
Laboratory Results
08/27/25 08/27/25
06:01 08:15
WBC 6.8
Hgb 11.2 L
Hct 33.3 L
Plt Count 478 H
Sodium 139
Potassium 3.8
Chloride 103
Carbon Dioxide 34 H
BUN 7
Creatinine 0.4 L
Glucose 153 H
Calcium 8.7
Vital Signs:
Vital Signs
Temp Pulse Resp BP Pulse Ox
98.0 F 60 16 132/76 100
08/27/25 07:00 08/27/25 07:00 08/27/25 07:00 08/27/25 07:00 08/27/25 07:00
I&O
08/26/25 08/27/25 08/28/25
06:59 06:59 06:59
Intake Total 120 / 120 969 / 969
Output Total 150 / 150 200 / 200
Balance -30 / -30 769 / 769
Physical Exam
-
General: Well Developed, Well Nourished and Appears in Distress (from NGT)
HEENT: Normocephalic, Atraumatic, Moist Mucous Membranes, PERRLA and Other (with NGT to suction)
Respiratory: Clear to Auscultation
Cardiac: Regular Rhythm
GI: Nontender, Distended and Other (incisions dry and well-healing)
Musculoskeletal: No Clubbing and No Cyanosis
Skin: Warm and Dry
Psych: Calm and Intact Judgement/Insight
--- NOTE | 2025-08-27 09:38 | W.PN.GS2 ---
Today's Communication / Plan
-
clamp trial of NGT
continue TPN
Assessment / Plan
-
54 yo female presenting with N/V and abdominal pain
Obstruction series from 08/21 with persistent distention/obstruction
CT imaging from 08/22 with PO contrast with persistent obstruction, complete and high-grade with a discrete transition point in the lower abdomen at midline
XR 08/23 with worsening SB distention
POD#3 s/p diagnostic laparoscopy, SHANTA, appendectomy, biopsy of intra-peritoneal nodules
Operative findings were reviewed with the patient. Evidence of chronic appendicitis with some concern for a malignant component given the gross appearance as well as nodules visualized on the small bowel and uterus. Small bowel obstruction
secondary to small bowel adhesions to the appendix. Lysis performed and bowel run. Appendectomy performed (pathology pending).
AFVSS
NGT in place since 08/20 for decompression, low outputs. Passing flatus.
Labs stable
Recovering well overall. Ileus watch given the duration of her obstruction and underlying pathophysiology. Tumor markers ordered. TPN ordered given her prolonged NPO status.
Plan:
-- NPO with chips/sips for comfort
-- NGT clamp trial
-- TPN continued
-- Pain control: Tylenol, Toradol, IV Dilaudid PRN
-- Abx: None indicated from General Surgery perspective
-- DVT: Lovenox, SCDs
-- GI PPI
Subjective Data
-
Date of Service: August 27, 2025
Pt seen and examined at bedside with Dr. Mclean. Denies n/v. Passing flatus. No stools. Intermittent abdominal discomfort.
Objective Data
-
Intake and Output
08/26/25 08/27/25 08/28/25
06:59 06:59 06:59
Intake Total 120 / 120 969 / 969
Output Total 150 / 150 200 / 200
Balance -30 / -30 769 / 769
Intake:
Oral fluids 120 / 120
TPN/PPN 969 / 969
Output:
Gastrointestinal tube output ( 150 / 150 200 / 200
Total)
[place] Sump 150 / 150 200 / 200
Other:
Number of approximated SMALL 1
amounts of urine
Number of approximated MODERATE 3 2 3
amounts of urine
Vital Signs
Temp Pulse Resp BP Pulse Ox
98.0 F 60 16 132/76 100
08/27/25 07:00 08/27/25 07:00 08/27/25 07:00 08/27/25 07:00 08/27/25 07:00
Lab Results
08/27/25 08:15
08/27/25 06:01
Calcium 8.7 mg/dl (8.4-10.2) 08/27/25 06:01
Phosphorus 3.5 mg/dl (2.5-4.5) 08/27/25 06:01
Magnesium 2.0 mg/dl (1.6-2.3) 08/27/25 06:01
Total Bilirubin Cancelled 08/25/25 09:04
AST Cancelled 08/25/25 09:04
ALT Cancelled 08/25/25 09:04
Alkaline Phosphatase Cancelled 08/25/25 09:04
Total Protein Cancelled 08/25/25 09:04
Albumin Cancelled 08/25/25 09:04
Physical Exam
-
Gen: NAD
HEENT: non-bilious output
Abd: soft, mild tenderness, mild to moderate distension, non-peritoneal, ngt with nonbilious outputs (low)
Incisions with intact glue, no erythema
Patient has a smith catheter: No
Patient has a central line: Yes
[2025-08-27] MEDS: OFIRMEV IV ×3 (11:00→22:02)
[2025-08-27 11:38] LABS: Glucose - Point of Care 129 mg/dl (70-99)
--- NOTE | 2025-08-27 12:46 | CM ---
Patient started on TPN.
NG tube clamped.
Ambulating in halls several times.
Remains NPO.
PLAN Home with possible VN if accepted
[2025-08-27 15:55] VITALS: BP 111/55
[2025-08-27 18:16] LABS: Glucose - Point of Care 77 mg/dl (70-99)
[2025-08-27] MEDS: LOVENOX SC (19:26)
[2025-08-27] MEDS: Parenteral Nutrition, Central 1380 IV (20:43)
[2025-08-27 23:00] VITALS: BP 104/59
[2025-08-28 00:39] LABS: CA 19-9 11 U/mL (<=35)
[2025-08-28] MEDS: OFIRMEV IV ×2 (03:51→22:58)
[2025-08-28 05:17] LABS: Hematocrit 31.8 % (37.0-47.0); Hemoglobin 10.7 g/dL (12.0-16.0); Mean Corp Hgb Conc. 33.6 g/dL (33.0-37.0); Mean Corpuscular Volume 99.7 fL (81.0-99.0); Platelet Count 494 10^3/uL (130-400); Red Cell Dist. Width 13.2 % (11.5-14.5)
[2025-08-28 05:41] LABS: Blood Urea Nitrogen 10 mg/dl (7-17); Calcium 8.8 mg/dl (8.4-10.2); Carbon Dioxide 30 mmol/L (22-30); Chloride 105 mmol/L (98-107); Estimated Creatinine Clearance 93 ml/min; Glucose 121 mg/dl (70-99); Magnesium 2.1 mg/dl (1.6-2.3); Potassium 4.4 mmol/L (3.5-5.1); Sodium 139 mmol/L (135-145); eGFR > 60.00
[2025-08-28 07:00] VITALS: BP 102/51
--- NOTE | 2025-08-28 07:42 | W.PN.HOSP.TC ---
Today's Communication/Plan
-
NGT removed 08/27
CLD today on TPN
Continue IV pain control; lidocaine patches for back ordered
Assessment / Plan
Assessment / Plan
Assessment - Ms. Dueñas is a 54-year-old female with PMHx significant for IBS/ileus (many years ago) is admitted to the hospital for abdominal distention, pain and nausea with dry heaving found small bowel obstruction s/p diagnostic laparoscopy, SHANTA,
appendectomy, biopsy of intra-peritoneal nodules with Dr. Silver on 08/24.
Imaging:
AXR 08/21-small bowel obstruction with progression.
AXR 08/23-SEVERE AIR DISTENTION of JEJUNAL SMALL BOWEL LOOPS in the left side of the abdomen and central abdomen which appears unchanged compared with the recent prior radiographic and CT examinations 08/22/2025 and 08/21/2025 - most suggestive of a
SEVERE PARTIAL SMALL BOWEL OBSTRUCTION or ILEUS.Contrast material in the ascending and sigmoid colon which appears to have passed into the colon since 08/22/2025.
CT A/P w/ oral contrast 08/22: Small bowel obstruction. This appears high-grade with a discrete transition point in the lower abdomen at midline. Oral contrast remains within the stomach and proximal small bowel and does not pass through the
transition point.
Diffuse wall thickening of the more distal small bowel loops may be on the basis of an infectious or inflammatory enteritis.
Plan-
#Small Bowel Obstruction s/p diagnostic laparoscopy, SHANTA, appendectomy, biopsy of intra-peritoneal nodules
Severe enteritis, likely viral given her symptoms preceded by viral illness. Post-op, there is concern for malignant SBO. Evidence of chronic appendicitis with some concern for a malignant component given the gross appearance as well as nodules
visualized on the small bowel and uterus. Small bowel obstruction secondary to small bowel adhesions to the appendix. Lysis performed and bowel run. NGT removed 08/27.
- Surgery and GI following
-- s/p OR on 08/[address] Silver
---NGT decompression; clamp trial 08/27 passed; NGT removed 08/27
----NGT output: day 1 (08/19) - 2700, day 2 - 950, day 3 950, day 4 - 1500, day 5 - 1000, day 6 (POD#1) - 375, day 7 - 150.
---NPO; TPN ordered via PICC (placed 08/24); start CLD per surgery
---Pain control: Tylenol 1000mg prn, s/p Toradol 10mg IV q6h, IV Dilaudid 0.25mg q3h prn for mod pain and IV Dilaudid 0.5mg q4h prn for severe pain, IV APAP prn
---Ca 19-9: 11wnl, CEA: 1.09wnl, f/u Chromogranin A, CMV micro, appendix path, and nodule bx
--PRN valium and lozenges for comfort
--Per GI, Ciprofloxacin and Flagyl started 08/23
---Flagyl changed from TID to BID 08/23
---DC Antibiotics 08/25
--IV Protonix 40mg daily
--IV LR until TPN started
- Nutrition and pharmacy to discuss supplement list
# Hypokalemia, resolved
4.4 08/28
- CTM
CODE STATUS: Full code
DVT ppx: Lovenox
Diet: NPO with sips/clears
Dispo: Home
Anticipated Discharge: > 48 hours
Subjective/Interval History
-
Date of Service: August 28, 2025
- NGT removed yesterday. This morning, she feels really happy about that but still endorsing some anxiety about trying even sips of water. Discussed waiting on surgery's opinion before removing her off NPO - continues on TPN for now.
- She is passing gas. No BM. Reports feeling gassy, with some pain on passing flatus.
- Endorsing 6/10 abdominal pain, relieved by Dilaudid. She does not want to try oral meds right now. We discussed continuing with Dilaudid through today with transition to IV APAP and eventual po pain regimen.
- Back pain, new, from sitting/positional -- discussed and ordered Lidocaine patch.
Objective Data
-
Labs:
Laboratory Results
08/28/25
05:02
WBC 7.0
Hgb 10.7 L
Hct 31.8 L
Plt Count 494 H
Sodium 139
Potassium 4.4
Chloride 105
Carbon Dioxide 30
BUN 10
Creatinine 0.4 L
Glucose 121 H
Calcium 8.8
Vital Signs:
Vital Signs
Temp Pulse Resp BP Pulse Ox
98.1 F 57 158 104/59 98
08/27/25 23:00 08/27/25 23:00 08/27/25 23:00 08/27/25 23:00 08/27/25 23:00
I&O
08/27/25 08/28/25 08/29/25
06:59 06:59 06:59
Intake Total 969 / 969
Output Total 200 / 200
Balance 769 / 769
Physical Exam
-
General: Well Developed, Well Nourished, No Apparent Distress, Comfortable and Conversant
HEENT: Normocephalic and Atraumatic
Respiratory: Clear to Auscultation
Cardiac: Regular Rhythm
GI: Nondistended, Tender (slightly, TTP) and Other (incision sites clean and dry)
Musculoskeletal: No Edema
Skin: Warm and Dry
Neuro: AO x 3
Psych: Calm and Intact Judgement/Insight
[2025-08-28 08:28] LABS: Glucose - Point of Care 108 mg/dl (70-99)
[2025-08-28] MEDS: NSS (PRESERVATIVE FREE) 10 ML IV (08:59)
[2025-08-28] MEDS: PROTONIX IV 40 MG IV (08:59)
[2025-08-28] MEDS: OFIRMEV 100 IV ×2 (10:25→17:18)
[2025-08-28] MEDS: LIDOCAINE 4% PATCH 1 PATCH TOPICAL (10:25)
--- NOTE | 2025-08-28 12:42 | W.PN.GS2 ---
Addendum entered and electronically signed by Solomon Chavez MD 08/28/25 15:20:
I saw and examined the patient.
The GOVERNMENT SERVICES PROFESSIONAL's note was reviewed and I agree with the note.
�Advance to clears; continue TPN until tolerating solid food
� Continue pain control, encourage OOB/IS
Original Note:
Today's Communication / Plan
-
Trial of clears
Assessment / Plan
-
54 yo female presenting with N/V and abdominal pain
Obstruction series from 08/21 with persistent distention/obstruction
CT imaging from 08/22 with PO contrast with persistent obstruction, complete and high-grade with a discrete transition point in the lower abdomen at midline
XR 08/23 with worsening SB distention
POD#4 s/p diagnostic laparoscopy, SHANTA, appendectomy, biopsy of intra-peritoneal nodules
Operative findings were reviewed with the patient. Evidence of chronic appendicitis with some concern for a malignant component given the gross appearance as well as nodules visualized on the small bowel and uterus. Small bowel obstruction
secondary to small bowel adhesions to the appendix. Lysis performed and bowel run. Appendectomy performed (pathology pending). Ca 19-9 and CEA low, chromogranin A pending.
AFVSS
NGT out on 08/27, Passing flatus with gradually improving distention
Labs stable
Recovering well overall. Ileus watch given the duration of her obstruction and underlying pathophysiology. TPN ordered given her prolonged NPO status.
Plan:
-- Trial of clears
-- TPN continued
-- Pain control: Tylenol, Toradol, IV Dilaudid PRN
-- Abx: None indicated from General Surgery perspective
-- DVT: Lovenox, SCDs
-- GI PPI
Subjective Data
-
Date of Service: August 28, 2025
Pt seen and examined at bedside with Dr. Mclean. Denies n/v. Passing gas. Still with cramping across her abdomen but improving.
Objective Data
-
Intake and Output
08/27/25 08/28/25 08/29/25
06:59 06:59 06:59
Intake Total 969 / 969
Output Total 200 / 200
Balance 769 / 769
Intake:
TPN/PPN 969 / 969
Output:
Gastrointestinal tube output ( 200 / 200
Total)
[place] Sump 200 / 200
Other:
Number of approximated SMALL 3
amounts of urine
Number of approximated MODERATE 2 3
amounts of urine
Vital Signs
Temp Pulse Resp BP Pulse Ox
97.9 F 59 18 102/51 100
08/28/25 07:00 08/28/25 07:00 08/28/25 07:00 08/28/25 07:00 08/28/25 07:00
Lab Results
08/28/25 05:02
08/28/25 05:02
Calcium 8.8 mg/dl (8.4-10.2) 08/28/25 05:02
Phosphorus 4.2 mg/dl (2.5-4.5) 08/28/25 05:02
Magnesium 2.1 mg/dl (1.6-2.3) 08/28/25 05:02
Total Bilirubin Cancelled 08/25/25 09:04
AST Cancelled 08/25/25 09:04
ALT Cancelled 08/25/25 09:04
Alkaline Phosphatase Cancelled 08/25/25 09:04
Total Protein Cancelled 08/25/25 09:04
Albumin Cancelled 08/25/25 09:04
Physical Exam
-
Gen: NAD
HEENT: non-bilious output
Abd: soft, mild generalized tenderness, mild distension, non-peritoneal
Incisions with intact glue, no erythema
Patient has a smith catheter: No
Patient has a central line: Yes
[2025-08-28 13:50] LABS: Glucose - Point of Care 120 mg/dl (70-99)
[2025-08-28 15:00] VITALS: BP 115/89
--- NOTE | 2025-08-28 15:50 | PTCARENOTE ---
PT aaox3 pleasant able to make needs known. pt admits to having pain in abdomen 5/10 mod but only wants her scheduled tylenol. PT says she is very anxious about the pending pathology report emotional support given. Vss.afebrile. TPn infusing as
per md order without difficulty.. HRR +PP no edema. lungs dec clear. pt denies any sob, cosyb cp or palpitation. abd soft nt hypoactive bs no bm tender. pt oob ambulating into the bathroom independtly. pt very anxious about not taking her lovenox.
she explained her parents had clotting disorders. she was educated on lovenox, its uses in surgery and in hypercoaguloable states. the patient is looking forward to taking it tonight.
[2025-08-28] MEDS: LOVENOX 40 MG SC (17:18)
[2025-08-28 17:23] LABS: Glucose - Point of Care 120 mg/dl (70-99)
[2025-08-28] MEDS: Parenteral Nutrition, Central 1380 IV (21:42)
[2025-08-28] MEDS: ZOFRAN 4 MG IV (21:55)
[2025-08-28] MEDS: DILAUDID 0.25 MG IV (21:56)
[2025-08-28] MEDS: REMOVE LIDOCAINE PATCH REMOVE (22:01)
[2025-08-28 23:58] VITALS: BP 113/62
[2025-08-29 00:13] LABS: Glucose - Point of Care 100 mg/dl (70-99)
[2025-08-29] MEDS: OFIRMEV IV (03:53)
[2025-08-29 05:48] LABS: Hematocrit 32.8 % (37.0-47.0); Hemoglobin 11.1 g/dL (12.0-16.0); Mean Corp Hgb Conc. 33.8 g/dL (33.0-37.0); Mean Corpuscular Volume 101.2 fL (81.0-99.0); Platelet Count 562 10^3/uL (130-400); Red Cell Dist. Width 13.1 % (11.5-14.5)
[2025-08-29 06:00] VITALS: BMI 18.6
[2025-08-29 06:14] LABS: Blood Urea Nitrogen 9 mg/dl (7-17); Calcium 9.0 mg/dl (8.4-10.2); Carbon Dioxide 29 mmol/L (22-30); Chloride 103 mmol/L (98-107); Estimated Creatinine Clearance 91 ml/min; Glucose 117 mg/dl (70-99); Magnesium 2.2 mg/dl (1.6-2.3); Potassium 4.9 mmol/L (3.5-5.1); Sodium 137 mmol/L (135-145); eGFR > 60.00
[2025-08-29 06:28] LABS: Glucose - Point of Care 131 mg/dl (70-99)
[2025-08-29] MEDS: NSS (PRESERVATIVE FREE) 10 ML IV (08:14)
[2025-08-29] MEDS: PROTONIX IV 40 MG IV (08:14)
[2025-08-29] MEDS: LIDOCAINE 4% PATCH 1 PATCH TOPICAL (08:14)
[2025-08-29 08:16] VITALS: BP 108/58
--- NOTE | 2025-08-29 08:43 | W.PN.UPDATE ---
Update Note
Progress Note Update
I have independently evaluated the patient at the bedside. I reviewed the case with the resident and agree with documentation unless otherwise specified
AFVSS. Remains with some abdomen discomfort, slightly worse after consuming CLD though patient states she may be going too fast. Labs are stable
AAOx4, NAD. Thin, well-conditioned female. Benign cardiopulmonary exam. Abdomen with mild generalized tenderness with discrete mild tenderness near incision sites, reduced bowel sounds, no peritoneal signs. No edema, no JVD, palpable pulses.
Skin warm and dry without rash. No focal neurologic deficits
#Severe partial bowel obstruction. Concern for neoplastic process. S/p ex lap, POD 5 today. Biopsies of peritoneal lymph node with results pending. S/p NGT removal. Now on CLD. Will monitor with serial abdomen exams on clear liquid diet. Plan
to slowly escalate diet at surgery's discretion. If symptoms worsen or develops nausea/vomiting will need to consider repeat NGT placement. Surgery appreciated, continue TPN until tolerating full diet
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 CA 19-9, CEA, chromogranin A all WNL. Will follow-up surgical biopsy from
ex lap. Consider CA-125 testing.
#Gratuitous use of OTC supplements. Advised patient to discontinue her extensive list of OTC supplements due to possibility of associated risks, lack of FDA regulation
Diet -- CLD with TPN daily, advance per surgery's discretion
Thromboprophylaxis -- SQ Lovenox
Stress ulcer prophylaxis -- PPI
CODE STATUS -- Full
Disposition -- Home in > 72 hours
--- NOTE | 2025-08-29 10:08 | W.PN.HOSP.TC ---
Today's Communication/Plan
-
Diet advanced from CLD to FLD today per surgery
Stool calprotectin >3000, OP f/u per GI
1x simethicone
liquid APAP for pain
Assessment / Plan
Assessment / Plan
Assessment - Ms. Dueñas is a 54-year-old female with PMHx significant for IBS/ileus (many years ago) is admitted to the hospital for abdominal distention, pain and nausea with dry heaving found small bowel obstruction s/p diagnostic laparoscopy, SHANTA,
appendectomy, biopsy of intra-peritoneal nodules with Dr. Silver on 08/24.
Imaging:
AXR 08/21-small bowel obstruction with progression.
AXR 08/23-SEVERE AIR DISTENTION of JEJUNAL SMALL BOWEL LOOPS in the left side of the abdomen and central abdomen which appears unchanged compared with the recent prior radiographic and CT examinations 08/22/2025 and 08/21/2025 - most suggestive of a
SEVERE PARTIAL SMALL BOWEL OBSTRUCTION or ILEUS.Contrast material in the ascending and sigmoid colon which appears to have passed into the colon since 08/22/2025.
CT A/P w/ oral contrast 08/22: Small bowel obstruction. This appears high-grade with a discrete transition point in the lower abdomen at midline. Oral contrast remains within the stomach and proximal small bowel and does not pass through the
transition point.
Diffuse wall thickening of the more distal small bowel loops may be on the basis of an infectious or inflammatory enteritis.
Plan-
#Small Bowel Obstruction s/p diagnostic laparoscopy, SHANTA, appendectomy, biopsy of intra-peritoneal nodules on 08/24
Severe enteritis, likely viral given her symptoms preceded by viral illness. Post-op, there is concern for malignant SBO. Evidence of chronic appendicitis with some concern for a malignant component given the gross appearance as well as nodules
visualized on the small bowel and uterus. Small bowel obstruction secondary to small bowel adhesions to the appendix. Lysis performed and bowel run. NGT removed 08/27.
- Surgery following, GI following prior, signed off 08/24
-- s/p OR on 08/[address] Silver; POD 5
---NGT decompression; clamp trial 08/27 passed; NGT removed 08/27
----NGT output: day 1 (08/19) - 2700, day 2 - 950, day 3 950, day 4 - 1500, day 5 - 1000, day 6 (POD#1) - 375, day 7 - 150.
---NPO; TPN ordered via PICC (placed 08/24); CLD per surgery 08/28; Advanced to FLD/TPN today 08/29
---Pain control: s/p Toradol 10mg IV q6h, s/p IV Dilaudid 0.25mg q3h prn for mod pain, IV Dilaudid 0.5mg q4h prn for severe pain, liquid Tylenol 650mg q6h prn, Tramadol 50mg q6h prh
---Ca 19-9: 11wnl, CEA: 1.09wnl, f/u Chromogranin A, f/u CA 125, CMV micro, appendix path, and nodule bx
---Stool calprotectin >3000, GI curbsided, rec outpatient follow-up unless active issues
--PRN valium and lozenges for comfort
--Per GI, Ciprofloxacin and Flagyl started 08/23
---Flagyl changed from TID to BID 08/23
---DC Antibiotics 08/25
--IV Protonix 40mg daily
--IV LR until TPN started
#Gratuitous use of OTC supplements.
Nutrition and pharmaxy advised her discontinue her extensive list of OTC supplements due to possibility of associated risks, lack of FDA regulation.
# Hypokalemia, resolved
4.4 08/28
- CTM
CODE STATUS: Full code
DVT ppx: Lovenox
Diet: NPO with sips/clears
Dispo: Home
Anticipated Discharge: > 48 hours
Subjective/Interval History
-
Date of Service: August 29, 2025
- This morning, complaining of pain and would like to try APAP oral liquid; she reports bad gag reflex with tablet. She's having a lot of gas, no BM yet.
- Had 6 bowls of bone broth and two cups of jello yesterday total; states she can only have that from CLD menu as other items with high sugar content make her nauseas. Eager to try full liquids today per surgery's discretion.
Objective Data
-
Labs:
Laboratory Results
08/29/25
04:52
WBC 4.9
Hgb 11.1 L
Hct 32.8 L
Plt Count 562 H
Sodium 137
Potassium 4.9
Chloride 103
Carbon Dioxide 29
BUN 9
Creatinine 0.4 L
Glucose 117 H
Calcium 9.0
Vital Signs:
Vital Signs
Temp Pulse Resp BP Pulse Ox
98.4 F 65 16 108/58 99
08/29/25 08:16 08/29/25 08:16 08/29/25 08:16 08/29/25 08:16 08/29/25 08:16
I&O
08/28/25 08/29/25 08/30/25
06:59 06:59 06:59
Intake Total 720 / 720
Balance 720 / 720
Physical Exam
-
General: Well Developed, Well Nourished, No Apparent Distress, Comfortable and Conversant
HEENT: Normocephalic, Atraumatic and Moist Mucous Membranes
Respiratory: Clear to Auscultation
Cardiac: Regular Rhythm and S1/S2
GI: Soft, Nondistended, Normal Bowel Sounds and Tender (mid-abdomen, incision site)
Musculoskeletal: No Clubbing, No Cyanosis and No Edema
Skin: Warm and Dry
Neuro: AO x 3
Psych: Calm and Intact Judgement/Insight
--- NOTE | 2025-08-29 10:43 | W.PN.GS2 ---
Addendum entered and electronically signed by Solomon Chavez MD 08/29/25 19:02:
I saw and examined the patient.
The MICROBIOLOGY LAB MANAGER's note was reviewed and I agree with the note.
Comment:
Still slightly bloated, no nausea, passing gas
� Agree with advancing to fulls, cont TPN
Original Note:
Today's Communication / Plan
-
FLD/TPN
Assessment / Plan
-
54 yo female presenting with N/V and abdominal pain
Obstruction series from 08/21 with persistent distention/obstruction
CT imaging from 08/22 with PO contrast with persistent obstruction, complete and high-grade with a discrete transition point in the lower abdomen at midline
XR 08/23 with worsening SB distention
POD#5 s/p diagnostic laparoscopy, SHANTA, appendectomy, biopsy of intra-peritoneal nodules
Operative findings were reviewed with the patient. Evidence of chronic appendicitis with some concern for a malignant component given the gross appearance as well as nodules visualized on the small bowel and uterus. Small bowel obstruction
secondary to small bowel adhesions to the appendix. Lysis performed and bowel run. Appendectomy performed (pathology pending). Ca 19-9 and CEA low, chromogranin A within range
AFVSS
NGT out on 08/27, Passing flatus with gradually improving distention
Tolerating liquids but low intake and still with cramping discomfort
Labs stable
Recovering well overall. Ileus watch given the duration of her obstruction and underlying pathophysiology.
Plan:
-- FLD for more PO options
-- TPN continued
-- Pain control: Tylenol (scheduled), Tramadol, IV Dilaudid PRN. change IV valium to Po ativan
-- Abx: None indicated from General Surgery perspective
-- DVT: Lovenox, SCDs
-- GI PPI
Subjective Data
-
Date of Service: August 29, 2025
Pt seen and examined at bedside. Denies n/v. tolerating clears. Still with cramping discomfort across abdomen. Poor appetite. Passing a good deal of flatus, no stools as of yet
Objective Data
-
Intake and Output
08/28/25 08/29/25 08/30/25
06:59 06:59 06:59
Intake Total 720 / 720
Balance 720 / 720
Intake:
Oral fluids 720 / 720
Other:
Number of approximated SMALL 3
amounts of urine
Number of approximated MODERATE 3 2 3
amounts of urine
Vital Signs
Temp Pulse Resp BP Pulse Ox
98.4 F 65 16 108/58 99
08/29/25 08:16 08/29/25 08:16 08/29/25 08:16 08/29/25 08:16 08/29/25 08:16
Lab Results
08/29/25 04:52
08/29/25 04:52
Calcium 9.0 mg/dl (8.4-10.2) 08/29/25 04:52
Phosphorus 4.2 mg/dl (2.5-4.5) 08/28/25 05:02
Magnesium 2.2 mg/dl (1.6-2.3) 08/29/25 04:52
Total Bilirubin Cancelled 08/25/25 09:04
AST Cancelled 08/25/25 09:04
ALT Cancelled 08/25/25 09:04
Alkaline Phosphatase Cancelled 08/25/25 09:04
Total Protein Cancelled 08/25/25 09:04
Albumin Cancelled 08/25/25 09:04
Physical Exam
-
Gen: NAD
Abd: soft, mild generalized tenderness, mild distension (improved), non-peritoneal
Incisions with intact glue, no erythema
Patient has a smith catheter: No
Patient has a central line: Yes
[2025-08-29] MEDS: TYLENOL ORAL SOLUTION 650 MG PO (11:29)
[2025-08-29 11:52] LABS: Glucose - Point of Care 107 mg/dl (70-99)
[2025-08-29] MEDS: MYLICON 80 MG PO ×2 (14:12→21:08)
--- NOTE | 2025-08-29 15:00 | PTCARENOTE ---
The patient is aaox3 pleasant anxious, ativan ordered pRN but does not want it at this time. PT co mild pain requesting tylenol for surgical pain. MD aware and tylenol given with good results. PT HRR +PP no edema, Lungs dec clear. IS used several
times today, no sob no palpitaiton or CP. abdomen softly distended, hypoactive + flatus no bm. MD ordered simethicone. diet was advanced for lunch. Pt had large lunch full liquids and tolerated well. PT stated she feels very good after eating.
pt now resting. 4 lap sites CDI with glue edges well approximated rotary surface grinder. PT oob to bathroom by self independent and steady. Pt with SCD for DVT prophalxis.
[2025-08-29 16:39] VITALS: BP 107/63
[2025-08-29] MEDS: TYLENOL ORAL SOLUTION PO (17:24)
[2025-08-29] MEDS: LOVENOX 40 MG SC (17:25)
[2025-08-29 17:32] LABS: Glucose - Point of Care 119 mg/dl (70-99)
[2025-08-29] MEDS: TYLENOL 1000 MG PO (17:53)
[2025-08-29] MEDS: Parenteral Nutrition, Central 1380 IV (21:06)
[2025-08-29] MEDS: REMOVE LIDOCAINE PATCH 1 PATCH REMOVE (21:08)
[2025-08-29 23:37] LABS: Glucose - Point of Care 138 mg/dl (70-99)
[2025-08-29 23:52] VITALS: BP 98/53
[2025-08-30 04:40] LABS: Hematocrit 34.3 % (37.0-47.0); Hemoglobin 11.5 g/dL (12.0-16.0); Mean Corp Hgb Conc. 33.5 g/dL (33.0-37.0); Mean Corpuscular Volume 100.9 fL (81.0-99.0); Platelet Count 569 10^3/uL (130-400); Red Cell Dist. Width 13.0 % (11.5-14.5)
[2025-08-30 05:05] LABS: ALT (SGPT) 45 U/L (0-35); AST (SGOT) 33 U/L (14-36); Albumin 3.6 g/dl (3.5-5.0); Alkaline Phosphatase 44 U/L (38-126); Blood Urea Nitrogen 10 mg/dl (7-17); Calcium 9.4 mg/dl (8.4-10.2); Carbon Dioxide 29 mmol/L (22-30); Chloride 103 mmol/L (98-107); Estimated Creatinine Clearance 90 ml/min; Glucose 121 mg/dl (70-99); Magnesium 2.2 mg/dl (1.6-2.3); Sodium 138 mmol/L (135-145); Total Protein 6.6 g/dl (6.3-8.2); Triglycerides 160 mg/dl (10-149); eGFR > 60.00
[2025-08-30 05:09] LABS: Potassium 4.9 mmol/L (3.5-5.1)
[2025-08-30 05:58] LABS: Glucose - Point of Care 130 mg/dl (70-99)
[2025-08-30 06:00] VITALS: BMI 18.5
[2025-08-30 07:41] VITALS: BP 107/62
[2025-08-30] MEDS: PROTONIX IV 40 MG IV (07:49)
[2025-08-30] MEDS: NSS (PRESERVATIVE FREE) 10 ML IV (07:50)
[2025-08-30] MEDS: LIDOCAINE 4% PATCH 1 PATCH TOPICAL (07:50)
--- NOTE | 2025-08-30 07:57 | W.PN.HOSP.TC ---
Addendum entered and electronically signed by Elana Ortiz MD 08/30/25 16:59:
Agree with residents plan. Seen and examined the patient. See changes in my notes
54-year-old female with small bowel obstruction
CT abdomen and pelvis on 08/22/2025-small SBO high-grade with a discrete transition point in the lower abdomen at midline oral contrast remains in the stomach proximal small bowel and did not pass through. Diffuse wall thickening of the more distal
small bowel loops.
CVS: S1-S2 normal
Chest: CTA B/L
Abdomen: Soft, mild distention, laparotomy wound stable, bowel sounds appreciated
Extremities: No edema
# Small bowel obstruction
Status post diagnostic laparoscopy, lysis of adhesions, appendectomy for chronic appendicitis, biopsy of intraoperative urinary nodules on 08/24/2025
Imaging also showed severe enteritis infectious versus inflammatory also a biopsy was done for the nodules-pending
Was on antibiotics ciprofloxacin and Flagyl-discontinued on 08/25/2025
NG tube removed on 2324
TPN started on 08/24/2025
Currently on full liquid diet
CA 19-9 and CEA noted above
Elevated stool calprotectin over 3000-GI recommended outpatient follow-up
# Hypokalemia-resolved
# Thrombocytosis-likely secondary to acute illness
# History of psoriasis
# DVT prophylaxis-Lovenox
# Full code
Part of this note was created using voice recognition system. Occasional wrong word or��sound alike� substitutions may have inadvertently occurred due to the inherent limitations of voice recognition software. If noted kindly bring it to my
attention for correction.
Original Note:
Today's Communication/Plan
-
Continue FLD/TPN
f/u path
Assessment / Plan
Assessment / Plan
Assessment - Ms. Dueñas is a 54-year-old female with PMHx significant for IBS/ileus (many years ago) is admitted to the hospital for abdominal distention, pain and nausea with dry heaving found small bowel obstruction s/p diagnostic laparoscopy, SHANTA,
appendectomy, biopsy of intra-peritoneal nodules with Dr. Silver on 08/24.
Imaging:
AXR 08/21-small bowel obstruction with progression.
AXR 08/23-SEVERE AIR DISTENTION of JEJUNAL SMALL BOWEL LOOPS in the left side of the abdomen and central abdomen which appears unchanged compared with the recent prior radiographic and CT examinations 08/22/2025 and 08/21/2025 - most suggestive of a
SEVERE PARTIAL SMALL BOWEL OBSTRUCTION or ILEUS.Contrast material in the ascending and sigmoid colon which appears to have passed into the colon since 08/22/2025.
CT A/P w/ oral contrast 08/22: Small bowel obstruction. This appears high-grade with a discrete transition point in the lower abdomen at midline. Oral contrast remains within the stomach and proximal small bowel and does not pass through the
transition point.
Diffuse wall thickening of the more distal small bowel loops may be on the basis of an infectious or inflammatory enteritis.
Plan-
#Small Bowel Obstruction s/p diagnostic laparoscopy, SHANTA, appendectomy, biopsy of intra-peritoneal nodules on 08/24
Severe enteritis, likely viral given her symptoms preceded by viral illness. Post-op, there is concern for malignant SBO. Evidence of chronic appendicitis with some concern for a malignant component given the gross appearance as well as nodules
visualized on the small bowel and uterus. Small bowel obstruction secondary to small bowel adhesions to the appendix. Lysis performed and bowel run. NGT removed 08/27.
- Surgery following, GI following prior, signed off 08/24
-- s/p OR on 08/[address] Silver; POD 6
---NGT decompression; clamp trial 08/27 passed; NGT removed 08/27
----NGT output: day 1 (08/19) - 2700, day 2 - 950, day 3 950, day 4 - 1500, day 5 - 1000, day 6 (POD#1) - 375, day 7 - 150.
---NPO; TPN ordered via PICC (placed 08/24); CLD per surgery 08/28; Continue FLD/TPN
---Pain control: s/p Toradol 10mg IV q6h, s/p IV Dilaudid 0.25mg q3h prn for mod pain, IV Dilaudid 0.5mg q4h prn for severe pain, PO Tylenol 650mg q6h prn, Tramadol 50mg q6h prh
---Ca 19-9: 11wnl, CEA: 1.09wnl, Chromogranin A wnl, f/u CA 125, CMV micro, appendix path, and nodule bx
---Stool calprotectin >3000, GI curbsided, rec outpatient follow-up unless active issues
--PRN valium and lozenges for comfort
--Per GI, Ciprofloxacin and Flagyl started 08/23
---Flagyl changed from TID to BID 08/23
---DC Antibiotics 08/25
--IV Protonix 40mg daily
--IV LR until TPN started
#Gratuitous use of OTC supplements.
Nutrition and pharmaxy advised her discontinue her extensive list of OTC supplements due to possibility of associated risks, lack of FDA regulation.
# Hypokalemia, resolved
4.4 08/28
- CTM
CODE STATUS: Full code
DVT ppx: Lovenox
Diet: NPO with sips/clears
Dispo: Home
Anticipated Discharge: > 48 hours
Subjective/Interval History
-
Date of Service: August 30, 2025
- She endorses ongoing discomfort in her lower abdomen, but reports being able to tolerate the FLD. She's eager to have more food options, however surgery rec continuing FLD/TPN for today.
Objective Data
-
Labs:
Laboratory Results
08/30/25
04:08
WBC 4.5 L
Hgb 11.5 L
Hct 34.3 L
Plt Count 569 H
Sodium 138
Potassium 4.9
Chloride 103
Carbon Dioxide 29
BUN 10
Creatinine 0.4 L
Glucose 121 H
Calcium 9.4
Total Bilirubin 0.3
AST 33
ALT 45 H
Alkaline Phosphatase 44
Vital Signs:
Vital Signs
Temp Pulse Resp BP Pulse Ox
98.1 F 65 18 107/62 99
08/30/25 07:41 08/30/25 07:41 08/30/25 07:41 08/30/25 07:41 08/30/25 07:41
I&O
08/29/25 08/30/25 08/31/25
06:59 06:59 06:59
Intake Total 720 / 720 1816 / 181
Balance 720 / 720 1815 / 181
Physical Exam
-
General: Well Developed, No Apparent Distress, Comfortable and Conversant
HEENT: Normocephalic, Atraumatic and Moist Mucous Membranes
Respiratory: Clear to Auscultation
Cardiac: Regular Rhythm and S1/S2
GI: Soft, Nontender, Normal Bowel Sounds and Tender (TTP over incisions)
Skin: Warm and Dry
Neuro: AO x 3
Psych: Calm and Intact Judgement/Insight
[2025-08-30] MEDS: TYLENOL 1000 MG PO (07:58)
--- NOTE | 2025-08-30 10:28 | W.PN.GS2 ---
Addendum entered and electronically signed by Josh Mclean MD 08/30/25 10:59:
I saw and examined the patient independently.
The Pcb Designer's note was reviewed and I agree with the note, assessment and plan except where noted below.
Comment:
Still mildly distended on exam. No nausea, reports no bowel movements.
Continue full liquid diet, will decrease TPN
Follow-up path
Anticipate discharge once more robust bowel function.
Original Note:
Today's Communication / Plan
-
TPN/FLD
Assessment / Plan
-
54 yo female presenting with N/V and abdominal pain
Obstruction series from 08/21 with persistent distention/obstruction
CT imaging from 08/22 with PO contrast with persistent obstruction, complete and high-grade with a discrete transition point in the lower abdomen at midline
XR 08/23 with worsening SB distention
POD#6 s/p diagnostic laparoscopy, SHANTA, appendectomy, biopsy of intra-peritoneal nodules
Operative findings were reviewed with the patient. Evidence of chronic appendicitis with some concern for a malignant component given the gross appearance as well as nodules visualized on the small bowel and uterus. Small bowel obstruction
secondary to small bowel adhesions to the appendix. Lysis performed and bowel run. Appendectomy performed (pathology pending). Ca 19-9 and CEA low, chromogranin A within range
AFVSS
NGT out on 08/27, Passing flatus with gradually improving distention
Tolerating liquids but low intake and still with cramping discomfort
Labs stable
Recovering well overall. Ileus watch given the duration of her obstruction and underlying pathophysiology. Await better bowel recovery prior to advancing to solid diet
Plan:
-- FLD for more PO options
-- TPN continued, appreciate nutrition recs
-- Pain control: Tylenol (scheduled), Tramadol, IV Dilaudid PRN.
-- Abx: None indicated from General Surgery perspective
-- DVT: Lovenox, SCDs
-- GI PPI
Subjective Data
-
Date of Service: August 30, 2025
Pt seen and examined at bedside with Dr. Mclean. Denies n/v. Passing gas but no bms. Still with cramping across mid abdomen. Trying to take in more PO but cramping discomfort with high intakes
Objective Data
-
Intake and Output
08/29/25 08/30/25 08/31/25
06:59 06:59 06:59
Intake Total 720 / 720 1816 / 1816
Balance 720 / 720 1816 / 1816
Intake:
Oral fluids 720 / 720 1120 / 1120
TPN/PPN 696 / 696
Other:
Number of approximated MODERATE 2 4
amounts of urine
Vital Signs
Temp Pulse Resp BP Pulse Ox
98.1 F 65 18 107/62 99
08/30/25 07:41 08/30/25 07:41 08/30/25 07:41 08/30/25 07:41 08/30/25 07:41
Lab Results
08/30/25 04:08
08/30/25 04:08
Calcium 9.4 mg/dl (8.4-10.2) 08/30/25 04:08
Phosphorus 4.6 mg/dl (2.5-4.5) H 08/30/25 04:08
Magnesium 2.2 mg/dl (1.6-2.3) 08/30/25 04:08
Total Bilirubin 0.3 mg/dl (0.2-1.3) 08/30/25 04:08
AST 33 U/L (14-36) 08/30/25 04:08
ALT 45 U/L (0-35) H 08/30/25 04:08
Alkaline Phosphatase 44 U/L (38-126) 08/30/25 04:08
Total Protein 6.6 g/dl (6.3-8.2) 08/30/25 04:08
Albumin 3.6 g/dl (3.5-5.0) 08/30/25 04:08
Physical Exam
-
Gen: NAD
Abd: soft, mild generalized tenderness, mild distension, non-peritoneal
Incisions with intact glue, no erythema
Patient has a smith catheter: No
Patient has a central line: Yes
--- NOTE | 2025-08-30 10:35 | CM ---
NG removed 08/27/25.
Continues with TPN.
Started on full liquids.
PT indicated no skilled needs. Ambulating in reyna.
PLAN Home no anticipated needs
[2025-08-30 11:57] LABS: Glucose - Point of Care 92 mg/dl (70-99)
[2025-08-30 15:26] VITALS: BP 104/36
[2025-08-30] MEDS: MYLICON 80 MG PO (16:40)
[2025-08-30] MEDS: LOVENOX 40 MG SC (17:59)
[2025-08-30 18:04] LABS: Glucose - Point of Care 114 mg/dl (70-99)
[2025-08-30 18:36] LABS: CA 125 175 U/mL (0-35)
[2025-08-30] MEDS: REMOVE LIDOCAINE PATCH REMOVE (19:38)
[2025-08-30] MEDS: Parenteral Nutrition, Central 1380 IV (21:13)
[2025-08-30 23:30] VITALS: BP 101/52
[2025-08-30 23:52] LABS: Glucose - Point of Care 115 mg/dl (70-99)
[2025-08-31 05:52] LABS: Glucose - Point of Care 117 mg/dl (70-99)
[2025-08-31 05:54] VITALS: BMI 18.4
[2025-08-31 07:13] VITALS: BP 118/62
[2025-08-31] MEDS: LIDOCAINE 4% PATCH 1 PATCH TOPICAL (08:09)
[2025-08-31] MEDS: PROTONIX IV 40 MG IV (08:10)
[2025-08-31] MEDS: NSS (PRESERVATIVE FREE) 10 ML IV (08:10)
--- NOTE | 2025-08-31 08:33 | W.PN.GS2 ---
Addendum entered and electronically signed by Maxime Silver MD 08/31/25 13:06:
SBFT demonstrates contrast into the colon. Maximus residual SB dilation though overall improved. Plan for trial of LRD. May need to add Miralax but will hold for now given patient preference and contrast admin.
Original Note:
Today's Communication / Plan
-
-- SBFT
-- Continue with FLD and TPN
Assessment / Plan
-
54 yo female presenting with N/V and abdominal pain
Obstruction series from 08/21 with persistent distention/obstruction
CT imaging from 08/22 with PO contrast with persistent obstruction, complete and high-grade with a discrete transition point in the lower abdomen at midline
XR 08/23 with worsening SB distention
POD#7 s/p diagnostic laparoscopy, SHANTA, appendectomy, biopsy of intra-peritoneal nodules
Operative findings were reviewed with the patient. Evidence of chronic appendicitis with some concern for a malignant component given the gross appearance as well as nodules visualized on the small bowel and uterus. Small bowel obstruction
secondary to small bowel adhesions to the appendix. Lysis performed and bowel run. Appendectomy performed (pathology pending). Ca 19-9 and CEA low, chromogranin A within range
AFVSS
Labs pending
NGT out on 08/27, Passing flatus with gradually improving distention
Recovering well overall has been advanced to FLD with no worsening of symptoms. Ileus watch given the duration of her obstruction and underlying pathophysiology. Await better bowel recovery prior to advancing to solid diet. Plan for SBFT today
for diagnostic and therapeutic purposes in helping to make decisions regarding dietary advancement.
Plan:
-- SBFT
-- FLD
-- Probiotic
-- TPN continued, appreciate nutrition recs
-- Pain control: Tylenol (scheduled), Tramadol, IV Dilaudid PRN.
-- Abx: None indicated from General Surgery perspective
-- DVT: Lovenox, SCDs
-- GI PPI
Subjective Data
-
Date of Service: August 31, 2025
No major complaints. Continues to have some lower crampy abdominal pain, which appears to be more associated with drinking and more sugary foods. Continues to pass flatus, no BM. No fevers. Subjectively feels as though abdomen is less distended.
Ambulating. Voiding.
Objective Data
-
Intake and Output
08/30/25 08/31/25 09/01/25
06:59 06:59 06:59
Intake Total 1816 / 1816 1416 / 1416
Balance 1816 / 1816 1416 / 1416
Intake:
Oral fluids 1120 / 1120 720 / 720
TPN/PPN 696 / 696 696 / 696
Other:
Number of approximated MODERATE 4 2
amounts of urine
Vital Signs
Temp Pulse Resp BP Pulse Ox
97.8 F 62 17 118/62 97
08/31/25 07:13 08/31/25 07:13 08/31/25 07:13 08/31/25 07:13 08/31/25 07:13
Calcium 9.4 mg/dl (8.4-10.2) 08/30/25 04:08
Phosphorus 4.6 mg/dl (2.5-4.5) H 08/30/25 04:08
Magnesium 2.2 mg/dl (1.6-2.3) 08/30/25 04:08
Total Bilirubin 0.3 mg/dl (0.2-1.3) 08/30/25 04:08
AST 33 U/L (14-36) 08/30/25 04:08
ALT 45 U/L (0-35) H 08/30/25 04:08
Alkaline Phosphatase 44 U/L (38-126) 08/30/25 04:08
Total Protein 6.6 g/dl (6.3-8.2) 08/30/25 04:08
Albumin 3.6 g/dl (3.5-5.0) 08/30/25 04:08
Physical Exam
-
Gen: NAD
Abd: soft, NT, minimal distension (improved), non-peritoneal, incisions c/d/i - no erythema, ecchymosis or drainage
Patient has a smith catheter: No
Patient has a central line: No
[2025-08-31 08:47] LABS: Hematocrit 33.7 % (37.0-47.0); Hemoglobin 11.2 g/dL (12.0-16.0); Mean Corp Hgb Conc. 33.2 g/dL (33.0-37.0); Mean Corpuscular Volume 101.8 fL (81.0-99.0); Nucleated Red Blood Cells % 0 %; Platelet Count 531 10^3/uL (130-400); Red Cell Dist. Width 13.1 % (11.5-14.5)
[2025-08-31] MEDS: VISBIOME 1 CAP PO (10:18)
[2025-08-31 12:52] LABS: ALT (SGPT) 53 U/L (0-35); AST (SGOT) 46 U/L (14-36); Albumin 4.5 g/dl (3.5-5.0); Alkaline Phosphatase 53 U/L (38-126); Blood Urea Nitrogen 13 mg/dl (7-17); Calcium 10.4 mg/dl (8.4-10.2); Carbon Dioxide 34 mmol/L (22-30); Chloride 100 mmol/L (98-107); Estimated Creatinine Clearance 89 ml/min; Glucose 101 mg/dl (70-99); Potassium 4.6 mmol/L (3.5-5.1); Sodium 142 mmol/L (135-145); Total Protein 8.4 g/dl (6.3-8.2); eGFR > 60.00
--- NOTE | 2025-08-31 13:42 | PN.CDI ---
CDI
- -
CDI:
Physician Documentation Request
Admit Date: 08/18/25 21:04
Dear Doctor Enzo,
Please review the following and provide your response in the progress notes.
Clinical Indicators:
Height: 5 ft 6 inches
08/30 notes '114 lbs 8 oz BMI 18.5 underweight range (08/30), weight down from 120 lbs 1 oz BMI 19.4 normal range 08/26..'
Please provide an associated diagnosis related to the abnormal BMI:
BMI < or = to 19
Underweight
Weight Loss
Cachectic
Anorexia
- BMI is not significant
- Other
Use of terms such as suspected, likely, concern for, or probable (associated with a specific diagnosis that is being evaluated, monitored, or treated as if it exists) are acceptable and can be coded in the inpatient setting, when documented at the
time of discharge.
Thank you,
Cristiana Gonzalez RN, BSN
CDI Specialist
tiger text
Please use your independent medical judgment in providing your response.
--- NOTE | 2025-08-31 14:12 | W.PN.HOSP.TC ---
Addendum entered and electronically signed by Elana Ortiz MD 09/01/25 09:04:
Low BMI
Addendum entered and electronically signed by Elana Ortiz MD 08/31/25 16:21:
I saw and evaluated the patient. I reviewed the resident�s note and agree with findings and plan as documented in the resident�s note.
CVS: S1-S2 normal
Chest: CTA B/L
Abdomen: Soft, NT , Bowel sounds present
Small bowel follow-through reviewed by me contrast seems to be passing into the colon
Surgery advance diet to low residue diet
See how it goes with the patient
Original Note:
Today's Communication/Plan
-
f/u SBFT
Advanced diet to LRD/TPN
Tylenol scheduled q6h from prn
Assessment / Plan
Assessment / Plan
Assessment - Ms. Dueñas is a 54-year-old female with PMHx significant for IBS/ileus (many years ago) is admitted to the hospital for abdominal distention, pain and nausea with dry heaving found small bowel obstruction s/p diagnostic laparoscopy, SHANTA,
appendectomy, biopsy of intra-peritoneal nodules with Dr. Silver on 08/24.
Imaging:
AXR 08/21-small bowel obstruction with progression.
AXR 08/23-SEVERE AIR DISTENTION of JEJUNAL SMALL BOWEL LOOPS in the left side of the abdomen and central abdomen which appears unchanged compared with the recent prior radiographic and CT examinations 08/22/2025 and 08/21/2025 - most suggestive of a
SEVERE PARTIAL SMALL BOWEL OBSTRUCTION or ILEUS.Contrast material in the ascending and sigmoid colon which appears to have passed into the colon since 08/22/2025.
CT A/P w/ oral contrast 08/22: Small bowel obstruction. This appears high-grade with a discrete transition point in the lower abdomen at midline. Oral contrast remains within the stomach and proximal small bowel and does not pass through the
transition point.
Diffuse wall thickening of the more distal small bowel loops may be on the basis of an infectious or inflammatory enteritis.
Plan-
#Small Bowel Obstruction s/p diagnostic laparoscopy, SHANTA, appendectomy, biopsy of intra-peritoneal nodules on 08/24
Severe enteritis, likely viral given her symptoms preceded by viral illness. Post-op, there is concern for malignant SBO. Evidence of chronic appendicitis with some concern for a malignant component given the gross appearance as well as nodules
visualized on the small bowel and uterus. Small bowel obstruction secondary to small bowel adhesions to the appendix. Lysis performed and bowel run. NGT removed 08/27.
- Surgery following, GI following prior, signed off 08/24
-- s/p OR on 08/[address] Silver; POD 7
---NGT decompression; clamp trial 08/27 passed; NGT removed 08/27
----NGT output: day 1 (08/19) - 2700, day 2 - 950, day 3 950, day 4 - 1500, day 5 - 1000, day 6 (POD#1) - 375, day 7 - 150.
---NPO; TPN ordered via PICC (placed 08/24); CLD per surgery 08/28; Advance diet from FLD/TPN to LRD with TPN
---Probiotic added per surgery
---Pain control: s/p Toradol 10mg IV q6h, IV Dilaudid 0.25mg q3h prn for mod pain, & IV Dilaudid 0.5mg q4h prn for severe pain; PO Tylenol 650mg q6h scheduled, Tramadol 50mg q6h prh
---Ca 19-9: 11wnl, CEA: 1.09wnl, Chromogranin A wnl, f/u CA 125, CMV micro, appendix path, and nodule bx
---Stool calprotectin >3000, GI curbsided, rec outpatient follow-up unless active issues
--f/u SBFT 08/31
--PRN valium and lozenges for comfort
--Per GI, Ciprofloxacin and Flagyl started 08/23
---Flagyl changed from TID to BID 08/23
---DC Antibiotics 08/25
--IV Protonix 40mg daily
--IV LR until TPN started
#Gratuitous use of OTC supplements.
Nutrition and pharmaxy advised her discontinue her extensive list of OTC supplements due to possibility of associated risks, lack of FDA regulation.
# Hypokalemia, resolved
4.4 08/28
- CTM
CODE STATUS: Full code
DVT ppx: Lovenox
Dispo: Home
Anticipated Discharge: > 48 hours
Subjective/Interval History
-
Date of Service: August 31, 2025
- This morning, reports feeling anxious and wanting to walk around more. Still passing gas, no BM yet. SBFT study done per surgery today, plan to advance diet to LRD.
Objective Data
-
Labs:
Laboratory Results
08/31/25 08/31/25 08/31/25
08:33 10:16 12:23
WBC 5.2
Hgb 11.2 L
Hct 33.7 L
Plt Count 531 H
Sodium Cancelled Cancelled 142
Potassium Cancelled Cancelled 4.6
Chloride Cancelled Cancelled 100
Carbon Dioxide Cancelled Cancelled 34 H
BUN Cancelled Cancelled 13
Creatinine Cancelled Cancelled 0.5 L
Glucose Cancelled Cancelled 101 H
Calcium Cancelled Cancelled 10.4 H
Total Bilirubin Cancelled Cancelled 0.6
AST Cancelled Cancelled 46 H
ALT Cancelled Cancelled 53 H
Alkaline Phosphatase Cancelled Cancelled 53
Vital Signs:
Vital Signs
Temp Pulse Resp BP Pulse Ox
97.8 F 62 17 118/62 97
08/31/25 07:13 08/31/25 07:13 08/31/25 07:13 08/31/25 07:13 08/31/25 07:13
I&O
08/30/25 08/31/25 09/01/25
06:59 06:59 06:59
Intake Total 1815
Balance 1815
Physical Exam
-
General: Well Developed, Well Nourished, No Apparent Distress, Comfortable and Conversant
HEENT: Normocephalic, Atraumatic and Moist Mucous Membranes
Respiratory: Clear to Auscultation
Cardiac: Regular Rhythm and S1/S2
GI: Soft, Nontender, Nondistended and Normal Bowel Sounds
Musculoskeletal: No Clubbing, No Cyanosis and No Edema
Skin: Warm and Dry
Neuro: AO x 3
Psych: Calm and Intact Judgement/Insight
[2025-08-31 14:58] LABS: Glucose - Point of Care 94 mg/dl (70-99)
[2025-08-31 15:12] VITALS: BP 124/64
[2025-08-31] MEDS: LOVENOX 40 MG SC (17:36)
--- NOTE | 2025-08-31 18:44 | PTCARENOTE ---
pt tolerating low residue diet. having multiple BM's since Small bowel x-ray. reports pain tolerable, independent, vss, will continue to monitor.
[2025-08-31 18:52] LABS: Glucose - Point of Care 151 mg/dl (70-99)
--- NOTE | 2025-08-31 19:45 | PTCARENOTE ---
pt having multiple brown liquid stools in BR, will continue to monitor.
[2025-08-31] MEDS: REMOVE LIDOCAINE PATCH REMOVE (22:30)
[2025-08-31 23:55] VITALS: BP 113/80
[2025-09-01] MEDS: MYLICON 80 MG PO (00:16)
[2025-09-01 01:14] LABS: Glucose - Point of Care 100 mg/dl (70-99)
[2025-09-01 06:08] LABS: Glucose - Point of Care 101 mg/dl (70-99)
[2025-09-01 06:08] LABS: Glucose - Point of Care 105 mg/dl (70-99)
[2025-09-01 08:04] VITALS: BP 104/60
[2025-09-01] MEDS: LIDOCAINE 4% PATCH 1 PATCH TOPICAL (08:40)
[2025-09-01] MEDS: NSS (PRESERVATIVE FREE) 10 ML IV (08:41)
[2025-09-01] MEDS: VISBIOME 1 CAP PO (08:41)
[2025-09-01] MEDS: PROTONIX IV 40 MG IV (08:41)
[2025-09-01 09:23] LABS: Hematocrit 36.7 % (37.0-47.0); Hemoglobin 12.1 g/dL (12.0-16.0); Mean Corp Hgb Conc. 33.0 g/dL (33.0-37.0); Mean Corpuscular Volume 100.3 fL (81.0-99.0); Nucleated Red Blood Cells % 0 %; Platelet Count 549 10^3/uL (130-400); Red Cell Dist. Width 13.2 % (11.5-14.5)
[2025-09-01 09:28] LABS: ALT (SGPT) 57 U/L (0-35); AST (SGOT) 41 U/L (14-36); Albumin 4.1 g/dl (3.5-5.0); Alkaline Phosphatase 53 U/L (38-126); Blood Urea Nitrogen 16 mg/dl (7-17); Calcium 9.6 mg/dl (8.4-10.2); Carbon Dioxide 29 mmol/L (22-30); Chloride 104 mmol/L (98-107); Estimated Creatinine Clearance 89 ml/min; Glucose 96 mg/dl (70-99); Potassium 4.9 mmol/L (3.5-5.1); Sodium 138 mmol/L (135-145); Total Protein 7.3 g/dl (6.3-8.2); eGFR > 60.00
--- NOTE | 2025-09-01 09:50 | W.PN.HOSP.TC ---
Addendum entered and electronically signed by Elana Ortiz MD 09/01/25 13:40:
I saw and evaluated the patient. I reviewed the resident�s note and agree with findings and plan as documented in the resident�s note.
Abdomen: Soft, NT / Bowel sounds present
Extremities: No edema
Plan- LRD
Multiple BMs overnight
Watch how she does on LRD
Path possibly will be back today
Original Note:
Today's Communication/Plan
-
f/u pathology
f/u surgery about advancing diet
dc PICC tmrw
Assessment / Plan
Assessment / Plan
Assessment - Ms. Dueñas is a 54-year-old female with PMHx significant for IBS/ileus (many years ago) is admitted to the hospital for abdominal distention, pain and nausea with dry heaving found small bowel obstruction s/p diagnostic laparoscopy, SHANTA,
appendectomy, biopsy of intra-peritoneal nodules with Dr. Silver on 08/24.
Imaging:
AXR 08/21-small bowel obstruction with progression.
AXR 08/23-SEVERE AIR DISTENTION of JEJUNAL SMALL BOWEL LOOPS in the left side of the abdomen and central abdomen which appears unchanged compared with the recent prior radiographic and CT examinations 08/22/2025 and 08/21/2025 - most suggestive of a
SEVERE PARTIAL SMALL BOWEL OBSTRUCTION or ILEUS.Contrast material in the ascending and sigmoid colon which appears to have passed into the colon since 08/22/2025.
CT A/P w/ oral contrast 08/22: Small bowel obstruction. This appears high-grade with a discrete transition point in the lower abdomen at midline. Oral contrast remains within the stomach and proximal small bowel and does not pass through the
transition point.
Diffuse wall thickening of the more distal small bowel loops may be on the basis of an infectious or inflammatory enteritis.
Plan-
#Small Bowel Obstruction s/p diagnostic laparoscopy, SHANTA, appendectomy, biopsy of intra-peritoneal nodules on 08/24
Severe enteritis, likely viral given her symptoms preceded by viral illness. Post-op, there is concern for malignant SBO. Evidence of chronic appendicitis with some concern for a malignant component given the gross appearance as well as nodules
visualized on the small bowel and uterus. Small bowel obstruction secondary to small bowel adhesions to the appendix. Lysis performed and bowel run. NGT removed 08/27.
- Surgery following, GI following prior, signed off 08/24
-- s/p OR on 08/[address] Silver; POD 7
---NGT decompression; clamp trial 08/27 passed; NGT removed 08/27
----NGT output: day 1 (08/19) - 2700, day 2 - 950, day 3 950, day 4 - 1500, day 5 - 1000, day 6 (POD#1) - 375, day 7 - 150.
---NPO; TPN ordered via PICC (placed 08/24); CLD per surgery 08/28; Advanced diet from FLD/TPN to LRD without TPN 09/01; f/u surgery today, dc PICC tmrw
---Probiotic added per surgery
---Pain control: s/p Toradol 10mg IV q6h, IV Dilaudid 0.25mg q3h prn for mod pain, & IV Dilaudid 0.5mg q4h prn for severe pain; PO Tylenol 650mg q6h scheduled, Tramadol 50mg q6h prh
---Ca 19-9: 11wnl, CEA: 1.09wnl, Chromogranin A wnl, f/u CA 125, CMV micro neg, f/u appendix path and nodule bx; per pathology, expected finalization today
---Stool calprotectin >3000, GI curbsided, rec outpatient follow-up unless active issues
--SBFT 08/31 without radiographic evidence of small bowel obstruction.
--PRN valium and lozenges for comfort
--Per GI, Ciprofloxacin and Flagyl started 08/23
---Flagyl changed from TID to BID 08/23
---DC Antibiotics 08/25
--IV Protonix 40mg daily
--IV LR until TPN started
#Gratuitous use of OTC supplements.
Nutrition and pharmaxy advised her discontinue her extensive list of OTC supplements due to possibility of associated risks, lack of FDA regulation.
#Low BMI
18.4 BMI. Most liklely given sequela of SBO, being NPO, and low intake prior to hospitalization iso developing SBO.
- CTM
- Slowly advance diet per surgery; encourage nutrition
#Hypokalemia, resolved
4.4 08/28
- CTM
CODE STATUS: Full code
DVT ppx: Lovenox
Dispo: Home
Anticipated Discharge: 24 - 48 hours
Subjective/Interval History
-
Date of Service: September 01, 2025
- LRD; TPN dc'd ON. This am, reports having had a rough night after the oral contrast. She had 5-6 loose BMs, but is tolerating LRD well otherwise.
- She continues to feel better day by day however is anxious about restarting her regular diet at home.
Objective Data
-
Labs:
Laboratory Results
09/01/25
09:05
WBC 5.1
Hgb 12.1
Hct 36.7 L
Plt Count 549 H
Sodium 138
Potassium 4.9
Chloride 104
Carbon Dioxide 29
BUN 16
Creatinine 0.5 L
Glucose 96
Calcium 9.6
Total Bilirubin 0.4
AST 41 H
ALT 57 H
Alkaline Phosphatase 53
Vital Signs:
Vital Signs
Temp Pulse Resp BP Pulse Ox
98.3 F 61 14 104/60 98
09/01/25 08:04 09/01/25 08:04 09/01/25 08:04 09/01/25 08:04 09/01/25 08:04
I&O
10/06/1809/01/25 09/02/25
06:59 06:59 06:59
Intake Total 1416 / 1416 1266 / 1266
Balance 1416 / 141 1266 / 1266
Physical Exam
-
General: No Apparent Distress, Comfortable, Conversant and Cachectic
HEENT: Normocephalic, Atraumatic and Moist Mucous Membranes
Respiratory: Clear to Auscultation
Cardiac: Regular Rhythm and S1/S2
GI: Soft, Nontender, Nondistended and Normal Bowel Sounds
Musculoskeletal: No Clubbing, No Cyanosis and No Edema
Skin: Warm and Dry
Neuro: AO x 3
Psych: Calm and Intact Judgement/Insight
--- NOTE | 2025-09-01 14:36 | W.PN.GS2 ---
Today's Communication / Plan
-
-- Continue LRD
Assessment / Plan
-
54 yo female presenting with N/V and abdominal pain
Obstruction series from 08/21 with persistent distention/obstruction
CT imaging from 08/22 with PO contrast with persistent obstruction, complete and high-grade with a discrete transition point in the lower abdomen at midline
XR 08/23 with worsening SB distention
POD#8 s/p diagnostic laparoscopy, SHANTA, appendectomy, biopsy of intra-peritoneal nodules
Operative findings were reviewed with the patient. Evidence of chronic appendicitis with some concern for a malignant component given the gross appearance as well as nodules visualized on the small bowel and uterus. Small bowel obstruction
secondary to small bowel adhesions to the appendix. Lysis performed and bowel run. Appendectomy performed (pathology pending). Ca 19-9 and CEA low, chromogranin A within range
AFVSS
Labs pending
NGT out on 08/27, Passing flatus with gradually improving distention
SBFT yesterday with passage of contrast into the colon with minimal to no small bowel dilation and less than 1 hour transit time. Continue with low residue diet. Would monitor over the next 24 to 48 hours on dietary tolerance and potential any
needs for bowel meds. Tentative plan for discharged tomorrow versus Saturday.
Plan:
-- LRD
-- Probiotic
-- No need for further TPN
-- Pain control: Tylenol (scheduled), Tramadol, IV Dilaudid PRN.
-- Abx: None indicated from General Surgery perspective
-- DVT: Lovenox, SCDs
-- GI PPI
Subjective Data
-
Date of Service: September 01, 2025
Multiple loose BM overnight. No nausea or emesis. No fevers.
Objective Data
-
Intake and Output
08/31/25 09/01/25 09/02/25
06:59 06:59 06:59
Intake Total 1416 / 1416 1266 / 1266
Balance 1416 / 1416 1266 / 1266
Intake:
Oral fluids 720 / 720 570 / 570
TPN/PPN 696 / 696 696 / 696
Other:
How many times incontinent 3
MODERATE amount urine
Number of approximated MODERATE 2
amounts of urine
Vital Signs
Temp Pulse Resp BP Pulse Ox
98.3 F 61 14 104/60 98
09/01/25 08:04 09/01/25 08:04 09/01/25 08:04 09/01/25 08:04 09/01/25 08:04
Lab Results
09/01/25 09:05
09/01/25 09:05
Calcium 9.6 mg/dl (8.4-10.2) 09/01/25 09:05
Phosphorus 4.6 mg/dl (2.5-4.5) H 08/30/25 04:08
Magnesium 2.2 mg/dl (1.6-2.3) 08/30/25 04:08
Total Bilirubin 0.4 mg/dl (0.2-1.3) 09/01/25 09:05
AST 41 U/L (14-36) H 09/01/25 09:05
ALT 57 U/L (0-35) H 09/01/25 09:05
Alkaline Phosphatase 53 U/L (38-126) 09/01/25 09:05
Total Protein 7.3 g/dl (6.3-8.2) 09/01/25 09:05
Albumin 4.1 g/dl (3.5-5.0) 09/01/25 09:05
Physical Exam
-
Gen: NAD
Abd: soft, NT/ND, non-peritoneal, incisions c/d/i - no erythema, ecchymosis or drainage
Patient has a smith catheter: No
Patient has a central line: No
[2025-09-01 15:05] VITALS: BP 114/54
--- NOTE | 2025-09-01 16:23 | CM ---
Continues with TPN.
Advanced diet to low residue.
PT indicated no skilled needs.
PLAN Home no anticipated needs
[2025-09-01] MEDS: LOVENOX 40 MG SC (18:34)
[2025-09-01] MEDS: REMOVE LIDOCAINE PATCH REMOVE (21:34)
[2025-09-01 23:11] VITALS: BP 106/57
[2025-09-02 06:19] VITALS: BMI 18.5
[2025-09-02 07:48] VITALS: BP 119/52
--- NOTE | 2025-09-02 08:10 | W.PN.GS2 ---
Today's Communication / Plan
-
-- LRD
-- Probiotic, may need to start Miralax later today versus tomorrow
-- No need for further TPN
Assessment / Plan
-
54 yo female presenting with N/V and abdominal pain
Obstruction series from 08/21 with persistent distention/obstruction
CT imaging from 08/22 with PO contrast with persistent obstruction, complete and high-grade with a discrete transition point in the lower abdomen at midline
XR 08/23 with worsening SB distention
POD#9 s/p diagnostic laparoscopy, SHANTA, appendectomy, biopsy of intra-peritoneal nodules
Operative findings were reviewed with the patient. Evidence of chronic appendicitis with some concern for a malignant component given the gross appearance as well as nodules visualized on the small bowel and uterus. Small bowel obstruction
secondary to small bowel adhesions to the appendix. Lysis performed and bowel run. Appendectomy performed (pathology pending). Ca 19-9 and CEA low, chromogranin A within range
NGT out on 08/27, passing flatus and loose BM after SBFT, none further, slow gradual improvement
AFVSS
Labs pending
Pathology does not demonstrate any evidence of a cancerous process. Leiomyoma of the uterus. Symptoms likely related to scarring from chronic appendicitis. Pathology results were discussed directly with the patient.
Continue with a LRD. May need to start bowel meds (MiraLAX vs Colace/senna) if no further bowel function by the end of the day today or certainly tomorrow. Dispo pending. Awaiting more consistent are OBS prior to discharge.
Plan:
-- LRD
-- Probiotic, may need to start Miralax later today versus tomorrow
-- No need for further TPN
-- Pain control: Tylenol, Tramadol, IV Dilaudid PRN.
-- Abx: None indicated from General Surgery perspective
-- DVT: Lovenox, SCDs
-- GI PPI
Subjective Data
-
Date of Service: September 02, 2025
No significant changes from last evaluation. Mild reflux type symptoms this a.m. No nausea or vomiting. Continues to pass flatus. No further BMs following her UGI. Mild intermittent crampy abdominal discomfort. Ambulating. Voiding.
Objective Data
-
Intake and Output
09/01/25 09/02/25 09/03/25
06:59 06:59 06:59
Intake Total 1266 / 1266 960 / 960
Balance 1266 / 1266 960 / 960
Intake:
Oral fluids 570 / 570 960 / 960
TPN/PPN 696 / 696
Other:
How many times incontinent 3
MODERATE amount urine
Number of approximated MODERATE 2
amounts of urine
Vital Signs
Temp Pulse Resp BP Pulse Ox
97.8 F 58 17 119/52 97
09/02/25 07:48 09/02/25 07:48 09/02/25 07:48 09/02/25 07:48 09/02/25 07:48
Calcium 9.6 mg/dl (8.4-10.2) 09/01/25 09:05
Phosphorus 4.6 mg/dl (2.5-4.5) H 08/30/25 04:08
Magnesium 2.2 mg/dl (1.6-2.3) 08/30/25 04:08
Total Bilirubin 0.4 mg/dl (0.2-1.3) 09/01/25 09:05
AST 41 U/L (14-36) H 09/01/25 09:05
ALT 57 U/L (0-35) H 09/01/25 09:05
Alkaline Phosphatase 53 U/L (38-126) 09/01/25 09:05
Total Protein 7.3 g/dl (6.3-8.2) 09/01/25 09:05
Albumin 4.1 g/dl (3.5-5.0) 09/01/25 09:05
Physical Exam
-
Gen: NAD
Abd: soft, NT/ND, non-pperitoneal, incisions c/d/i - no erythema, ecchymosis or drainage
Patient has a smith catheter: No
Patient has a central line: No
[2025-09-02 08:24] LABS: Hematocrit 33.4 % (37.0-47.0); Hemoglobin 11.2 g/dL (12.0-16.0); Mean Corp Hgb Conc. 33.5 g/dL (33.0-37.0); Mean Corpuscular Volume 98.8 fL (81.0-99.0); Nucleated Red Blood Cells % 0 %; Platelet Count 458 10^3/uL (130-400); Red Cell Dist. Width 13.1 % (11.5-14.5)
[2025-09-02 08:32] LABS: ALT (SGPT) 54 U/L (0-35); AST (SGOT) 41 U/L (14-36); Albumin 3.8 g/dl (3.5-5.0); Alkaline Phosphatase 47 U/L (38-126); Blood Urea Nitrogen 14 mg/dl (7-17); Calcium 9.4 mg/dl (8.4-10.2); Carbon Dioxide 29 mmol/L (22-30); Chloride 104 mmol/L (98-107); Estimated Creatinine Clearance 89 ml/min; Glucose 93 mg/dl (70-99); Potassium 4.6 mmol/L (3.5-5.1); Sodium 138 mmol/L (135-145); Total Protein 6.9 g/dl (6.3-8.2); eGFR > 60.00
[2025-09-02] MEDS: VISBIOME 1 CAP PO (08:42)
[2025-09-02] MEDS: NSS (PRESERVATIVE FREE) 10 ML IV (08:43)
[2025-09-02] MEDS: PROTONIX IV 40 MG IV (08:44)
[2025-09-02] MEDS: LIDOCAINE 4% PATCH 1 PATCH TOPICAL (08:44)
--- NOTE | 2025-09-02 09:20 | W.PN.HOSP.TC ---
Addendum entered and electronically signed by Elana Ortiz MD 09/02/25 14:08:
I saw and evaluated the patient. I reviewed the resident�s note and agree with findings and plan as documented in the resident�s note.
Has not had any bowel movements since passing contrast from small bowel follow-through
Passing flatus tolerating diet
Discussed with the patient regarding MiraLAX added today
Watch for bowel movements
Discussed with surgery-
As patient has bowel movements plan discharge for tomorrow
Discussed with nursing at bedside
Original Note:
Today's Communication/Plan
-
dc PICC
Consider adding Miralax later today vs tomorrow per surgery
Continue LRD
Assessment / Plan
Assessment / Plan
Assessment - Ms. Dueñas is a 54-year-old female with PMHx significant for IBS/ileus (many years ago) is admitted to the hospital for abdominal distention, pain and nausea with dry heaving found small bowel obstruction s/p diagnostic laparoscopy, SHANTA,
appendectomy, biopsy of intra-peritoneal nodules with Dr. Silver on 08/24.
Imaging:
AXR 08/21-small bowel obstruction with progression.
AXR 08/23-SEVERE AIR DISTENTION of JEJUNAL SMALL BOWEL LOOPS in the left side of the abdomen and central abdomen which appears unchanged compared with the recent prior radiographic and CT examinations 08/22/2025 and 08/21/2025 - most suggestive of a
SEVERE PARTIAL SMALL BOWEL OBSTRUCTION or ILEUS.Contrast material in the ascending and sigmoid colon which appears to have passed into the colon since 08/22/2025.
CT A/P w/ oral contrast 08/22: Small bowel obstruction. This appears high-grade with a discrete transition point in the lower abdomen at midline. Oral contrast remains within the stomach and proximal small bowel and does not pass through the
transition point.
Diffuse wall thickening of the more distal small bowel loops may be on the basis of an infectious or inflammatory enteritis.
Plan-
#Small Bowel Obstruction s/p diagnostic laparoscopy, SHANTA, appendectomy, biopsy of intra-peritoneal nodules on 08/24
Severe enteritis, likely viral given her symptoms preceded by viral illness. Post-op, there is concern for malignant SBO. Evidence of chronic appendicitis with some concern for a malignant component given the gross appearance as well as nodules
visualized on the small bowel and uterus. Small bowel obstruction secondary to small bowel adhesions to the appendix. Lysis performed and bowel run. NGT removed 08/27.
- Surgery following, GI following prior, signed off 08/24
-- s/p OR on 08/[address] Silver; POD 9
---NGT decompression; clamp trial 08/27 passed; NGT removed 08/27
----NGT output: day 1 (08/19) - 2700, day 2 - 950, day 3 950, day 4 - 1500, day 5 - 1000, day 6 (POD#1) - 375, day 7 - 150.
---NPO; TPN ordered via PICC (placed 08/24); CLD per surgery 08/28; Advanced diet from FLD/TPN to LRD and dc TPN 09/01; dc PICC 09/02
---Probiotic added per surgery
---Miralax later today per surgery
---Pain control: s/p Toradol 10mg IV q6h, IV Dilaudid 0.25mg q3h prn for mod pain, & IV Dilaudid 0.5mg q4h prn for severe pain; PO Tylenol 650mg q6h scheduled, Tramadol 50mg q6h prh
---Ca 19-9: 11wnl, CEA: 1.09wnl, Chromogranin A wnl, f/u CA 125, CMV micro neg,appendix path and nodule bx negative for malignancy
---Stool calprotectin >3000, GI curbsided, rec outpatient follow-up unless active issues
--SBFT 08/31 without radiographic evidence of small bowel obstruction.
--PRN valium and lozenges for comfort
--Per GI, Ciprofloxacin and Flagyl started 08/23
---Flagyl changed from TID to BID 08/23
---DC Antibiotics 08/25
--IV Protonix 40mg daily
--IV LR until TPN started
#Gratuitous use of OTC supplements.
Nutrition and pharmaxy advised her discontinue her extensive list of OTC supplements due to possibility of associated risks, lack of FDA regulation.
#Low BMI
18.4 BMI. Most liklely given sequela of SBO, being NPO, and low intake prior to hospitalization iso developing SBO.
- CTM
- Slowly advance diet per surgery; encourage nutrition
#Hypokalemia, resolved
4.4 08/28
- CTM
CODE STATUS: Full code
DVT ppx: Lovenox
Dispo: Home
Anticipated Discharge: 24 - 48 hours
Subjective/Interval History
-
Date of Service: September 02, 2025
- This morning, reports a lot of GERD as a result of waiting for her breakfast too long and not getting probiotics. Doesn't want to try PPI. Will continue on LRD today and surgery wants to monitor further. No BMs since yesterday s/p PO contrast for
SBFT a few days prior.
- Surgery discussed her path was negative - she's ecstatic about that.
Objective Data
-
Labs:
Laboratory Results
09/02/25
08:07
WBC 4.0 L
Hgb 11.2 L
Hct 33.4 L
Plt Count 458 H
Sodium 138
Potassium 4.6
Chloride 104
Carbon Dioxide 29
BUN 14
Creatinine 0.4 L
Glucose 93
Calcium 9.4
Total Bilirubin 0.5
AST 41 H
ALT 54 H
Alkaline Phosphatase 47
Vital Signs:
Vital Signs
Temp Pulse Resp BP Pulse Ox
97.8 F 58 17 119/52 97
09/02/25 07:48 09/02/25 07:48 09/02/25 07:48 09/02/25 07:48 09/02/25 07:48
I&O
09/01/25 09/02/25 09/03/25
06:59 06:59 06:59
Intake Total 1266 / 1266 960 / 960
Balance 1266 / 1266 960 / 960
Physical Exam
-
General: Well Developed, No Apparent Distress, Comfortable, Conversant and Cachectic
HEENT: Normocephalic, Atraumatic and Moist Mucous Membranes
Respiratory: Clear to Auscultation
Cardiac: Regular Rhythm
GI: Soft, Nontender, Nondistended, Normal Bowel Sounds and Other (incisions healing well)
Musculoskeletal: No Clubbing, No Cyanosis and No Edema
Skin: Warm, Dry and Rash
Neuro: AO x 3
Psych: Calm and Intact Judgement/Insight
[2025-09-02] MEDS: MIRALAX 17 GRAMS PO (12:10)
[2025-09-02 15:11] VITALS: BP 102/56
[2025-09-02] MEDS: LOVENOX 40 MG SC (17:49)
[2025-09-02] MEDS: REMOVE LIDOCAINE PATCH REMOVE (20:41)
[2025-09-02 23:16] VITALS: BP 101/54
[2025-09-03 06:00] VITALS: BMI 18.6
[2025-09-03 07:34] VITALS: BP 121/65
[2025-09-03] MEDS: MIRALAX 17 GRAMS PO (08:31)
[2025-09-03] MEDS: LIDOCAINE 4% PATCH 1 PATCH TOPICAL (08:31)
[2025-09-03 08:32] LABS: Hematocrit 34.9 % (37.0-47.0); Hemoglobin 11.9 g/dL (12.0-16.0); Mean Corp Hgb Conc. 34.1 g/dL (33.0-37.0); Mean Corpuscular Volume 97.8 fL (81.0-99.0); Nucleated Red Blood Cells % 0 %; Platelet Count 426 10^3/uL (130-400); Red Cell Dist. Width 13.0 % (11.5-14.5)
[2025-09-03] MEDS: PROTONIX IV 40 MG IV (08:32)
[2025-09-03] MEDS: VISBIOME 1 CAP PO (08:32)
[2025-09-03] MEDS: NSS (PRESERVATIVE FREE) 10 ML IV (08:34)
[2025-09-03 08:47] LABS: ALT (SGPT) 48 U/L (0-35); AST (SGOT) 33 U/L (14-36); Albumin 3.8 g/dl (3.5-5.0); Alkaline Phosphatase 47 U/L (38-126); Blood Urea Nitrogen 14 mg/dl (7-17); Calcium 9.4 mg/dl (8.4-10.2); Carbon Dioxide 29 mmol/L (22-30); Chloride 104 mmol/L (98-107); Estimated Creatinine Clearance 90 ml/min; Glucose 98 mg/dl (70-99); Potassium 4.4 mmol/L (3.5-5.1); Sodium 137 mmol/L (135-145); Total Protein 6.7 g/dl (6.3-8.2); eGFR > 60.00
--- NOTE | 2025-09-03 09:12 | W.PN.HOSP.TC ---
Addendum entered and electronically signed by Elana Ortiz MD 09/03/25 14:10:
Seen and examined the patient with the resident. Agree with notes and plan of care
Patient stated that she had more symptoms overnight with pain feels like gas pains. Has not had any bowel movements since the MiraLAX yesterday
Abdomen soft and nontender I do appreciate bowel sounds
Abdomen x-ray was obtained as nonobstructive pattern
Continue MiraLAX.
Watch another day per discussion with surgery.
Original Note:
Today's Communication/Plan
-
Continue LRD today and watch for BM today per surg, can discharge home once they deem so
Miralax daily
f/u AXR
Assessment / Plan
Assessment / Plan
Assessment - Ms. Deuñas is a 54-year-old female with PMHx significant for IBS/ileus (many years ago) is admitted to the hospital for abdominal distention, pain and nausea with dry heaving found small bowel obstruction s/p diagnostic laparoscopy, SHANTA,
appendectomy, biopsy of intra-peritoneal nodules with Dr. Silver on 08/24.
Imaging:
AXR 08/21-small bowel obstruction with progression.
AXR 08/23-SEVERE AIR DISTENTION of JEJUNAL SMALL BOWEL LOOPS in the left side of the abdomen and central abdomen which appears unchanged compared with the recent prior radiographic and CT examinations 08/22/2025 and 08/21/2025 - most suggestive of a
SEVERE PARTIAL SMALL BOWEL OBSTRUCTION or ILEUS.Contrast material in the ascending and sigmoid colon which appears to have passed into the colon since 08/22/2025.
CT A/P w/ oral contrast 08/22: Small bowel obstruction. This appears high-grade with a discrete transition point in the lower abdomen at midline. Oral contrast remains within the stomach and proximal small bowel and does not pass through the
transition point.
Diffuse wall thickening of the more distal small bowel loops may be on the basis of an infectious or inflammatory enteritis.
Plan-
#Small Bowel Obstruction s/p diagnostic laparoscopy, SHANTA, appendectomy, biopsy of intra-peritoneal nodules on 08/24
Severe enteritis, likely viral given her symptoms preceded by viral illness. Post-op, there is concern for malignant SBO. Evidence of chronic appendicitis with some concern for a malignant component given the gross appearance as well as nodules
visualized on the small bowel and uterus. Small bowel obstruction secondary to small bowel adhesions to the appendix. Lysis performed and bowel run. NGT removed 08/27.
- Surgery following, GI following prior, signed off 08/24
-- s/p OR on 08/[address] Silver; POD 10
---NGT decompression; clamp trial 08/27 passed; NGT removed 08/27
----NGT output: day 1 (08/19) - 2700, day 2 - 950, day 3 950, day 4 - 1500, day 5 - 1000, day 6 (POD#1) - 375, day 7 - 150.
---NPO; TPN ordered via PICC (placed 08/24); CLD per surgery 08/28; Advanced diet from FLD/TPN to LRD and dc TPN 09/01; dc'd PICC 09/02
---Probiotic added per surgery
---Miralax once daily; f/u AXR 09/03
---Pain control: s/p Toradol 10mg IV q6h, IV Dilaudid 0.25mg q3h prn for mod pain, & IV Dilaudid 0.5mg q4h prn for severe pain; PO Tylenol 650mg q6h scheduled, Tramadol 50mg q6h prh
---Ca 19-9: 11wnl, CEA: 1.09wnl, Chromogranin A wnl, f/u CA 125, CMV micro neg, appendix path and nodule bx negative for malignancy
---Stool calprotectin >3000, GI curbsided, rec outpatient follow-up unless active issues
--SBFT 08/31 without radiographic evidence of small bowel obstruction.
--PRN valium and lozenges for comfort
--Per GI, Ciprofloxacin and Flagyl started 08/23
---Flagyl changed from TID to BID 08/23
---DC Antibiotics 08/25
--IV Protonix 40mg daily
--IV LR until TPN started
#Gratuitous use of OTC supplements.
Nutrition and pharmaxy advised her discontinue her extensive list of OTC supplements due to possibility of associated risks, lack of FDA regulation.
#Low BMI
18.4 BMI. Most liklely given sequela of SBO, being NPO, and low intake prior to hospitalization iso developing SBO.
- CTM
- Slowly advance diet per surgery; encourage nutrition
#Hypokalemia, resolved
4.4 08/28
- CTM
CODE STATUS: Full code
DVT ppx: Lovenox
Dispo: Home; Continue LRD today and watch for BM today per surg, can discharge home once they deem so
Anticipated Discharge: Within 24 hours
Subjective/Interval History
-
Date of Service: September 03, 2025
- Had one BM, silt-like at 1pm yesterday prior to the Miralax. She hasn't had a BM since the Miralax at 4pm yesterday. She has been eating well but does not have many options for food with menu here. She has been walking 20-30mins daily, has more
gas trapping 'feel' but still passing gas and without N/V.
- Abd XR today; surgery would like to observe another day and wait for BM.
Objective Data
-
Labs:
Laboratory Results
09/03/25
07:44
WBC 3.8 L
Hgb 11.9 L
Hct 34.9 L
Plt Count 426 H
Sodium 137
Potassium 4.4
Chloride 104
Carbon Dioxide 29
BUN 14
Creatinine 0.5 L
Glucose 98
Calcium 9.4
Total Bilirubin 0.4
AST 33
ALT 48 H
Alkaline Phosphatase 47
Vital Signs:
Vital Signs
Temp Pulse Resp BP Pulse Ox
98 F 55 14 121/65 99
09/03/25 07:34 09/03/25 07:34 09/03/25 07:34 09/03/25 07:34 09/03/25 07:34
I&O
09/02/25 09/03/25 09/04/25
06:59 06:59 06:59
Intake Total 960 / 960 1200 / 1200
Balance 960 / 960 1200 / 1200
Physical Exam
-
General: Well Developed, Well Nourished, No Apparent Distress, Comfortable, Conversant and Cachectic
HEENT: Normocephalic, Atraumatic and Moist Mucous Membranes
Respiratory: Clear to Auscultation
Cardiac: Regular Rhythm and S1/S2
GI: Soft, Nontender, Nondistended and Normal Bowel Sounds
Musculoskeletal: No Clubbing, No Cyanosis and No Edema
Skin: Warm, Dry and Rash
Neuro: AO x 3
Psych: Calm and Intact Judgement/Insight
--- NOTE | 2025-09-03 12:05 | W.PN.GS2 ---
Addendum entered and electronically signed by Maxime Silver MD 09/03/25 13:01:
Patient seen and examined.
Reports some continued abdominal crampiness and mild distention. No nausea or vomiting. Continues to pass flatus, small BM yesterday, none since MiraLAX. Afebrile. Ambulating. Voiding.
Gen: NAD
Abd: soft, NT, mild distension, non-peritoneal, incisions c/d/i - no erythema, ecchymosis or drainage
Patient is a 54 yo female p/w SBO
Obstruction series from 08/21 with persistent distention/obstruction
CT imaging from 08/22 with PO contrast with persistent obstruction, complete and high-grade with a discrete transition point in the lower abdomen at midline
XR 08/23 with worsening SB distention
POD#10 s/p diagnostic laparoscopy, SHANTA, appendectomy, biopsy of intra-peritoneal nodules
Pathology does not demonstrate any evidence of a cancerous process. Leiomyoma of the uterus. Symptoms likely related to scarring from chronic appendicitis. Pathology results were discussed directly with the patient. Ca 19-9 and CEA low,
chromogranin A within range
NGT out on 08/27, passing flatus and loose BM after SBFT, none really since except very small amount yesterday, slow gradual improvement. Cramping/bloating overnight.
AFVSS
Labs stable
Awaiting more consistent bowel function prior to discharge.
Plan:
-- LRD
-- Probiotic, continue Miralax
-- Pain control: Tylenol, Tramadol, IV Dilaudid PRN.
-- Abx: None indicated from General Surgery perspective
-- DVT: Lovenox, SCDs
-- GI PPI
Original Note:
Today's Communication / Plan
-
c/w miralax/lrd
Assessment / Plan
-
54 yo female presenting with N/V and abdominal pain
Obstruction series from 08/21 with persistent distention/obstruction
CT imaging from 08/22 with PO contrast with persistent obstruction, complete and high-grade with a discrete transition point in the lower abdomen at midline
XR 08/23 with worsening SB distention
POD#10 s/p diagnostic laparoscopy, SHANTA, appendectomy, biopsy of intra-peritoneal nodules
Pathology does not demonstrate any evidence of a cancerous process. Leiomyoma of the uterus. Symptoms likely related to scarring from chronic appendicitis. Pathology results were discussed directly with the patient. Ca 19-9 and CEA low,
chromogranin A within range
NGT out on 08/27, passing flatus and loose BM after SBFT, none really since except very small amount yesterday, slow gradual improvement. Cramping/bloating overnight.
AFVSS
Labs stable
Plan:
-- LRD
-- Probiotic, continue Miralax
-- Pain control: Tylenol, Tramadol, IV Dilaudid PRN.
-- Abx: None indicated from General Surgery perspective
-- DVT: Lovenox, SCDs
-- GI PPI
Await more robust bowel function prior to discharge. Continue bowel regimen and LRD and follow progress.
Subjective Data
-
Date of Service: September 03, 2025
Pt seen and examined at bedside with Dr. Silver. Denies n/v. Tolerating diet. Up during the night with abdominal discomfort and cramping. Still passing some flatus but no further BM's since a very small one yesterday. Bloating persists.
Objective Data
-
Intake and Output
09/02/25 09/03/25 09/04/25
06:59 06:59 06:59
Intake Total 960 / 960 1200 / 1200
Balance 960 / 960 1200 / 1200
Intake:
Oral fluids 960 / 960 1200 / 1200
Other:
Number of approximated MODERATE 2 1
amounts of urine
Vital Signs
Temp Pulse Resp BP Pulse Ox
98 F 55 14 121/65 99
09/03/25 07:34 09/03/25 07:34 09/03/25 07:34 09/03/25 07:34 09/03/25 07:34
Lab Results
09/03/25 07:44
09/03/25 07:44
Calcium 9.4 mg/dl (8.4-10.2) 09/03/25 07:44
Phosphorus 4.6 mg/dl (2.5-4.5) H 08/30/25 04:08
Magnesium 2.2 mg/dl (1.6-2.3) 08/30/25 04:08
Total Bilirubin 0.4 mg/dl (0.2-1.3) 09/03/25 07:44
AST 33 U/L (14-36) 09/03/25 07:44
ALT 48 U/L (0-35) H 09/03/25 07:44
Alkaline Phosphatase 47 U/L (38-126) 09/03/25 07:44
Total Protein 6.7 g/dl (6.3-8.2) 09/03/25 07:44
Albumin 3.8 g/dl (3.5-5.0) 09/03/25 07:44
Physical Exam
-
Gen: NAD
Abd: soft, NT, mild distention, non-pperitoneal, incisions c/d/i - no erythema, ecchymosis or drainage
Patient has a smith catheter: No
Patient has a central line: No
--- NOTE | 2025-09-03 15:18 | CM ---
TPN, discharged, plan is to home when stable, no needs.
Plan; Home no needs when stable.
[2025-09-03 15:44] VITALS: BP 101/50
[2025-09-03] MEDS: LOVENOX 40 MG SC (17:18)
[2025-09-03] MEDS: REMOVE LIDOCAINE PATCH REMOVE (22:40)
[2025-09-03 23:00] VITALS: BP 90/45
[2025-09-04 06:00] VITALS: BMI 18.6
[2025-09-04 07:00] VITALS: BP 109/55
[2025-09-04] MEDS: NSS (PRESERVATIVE FREE) 10 ML IV (10:07)
[2025-09-04] MEDS: PROTONIX IV 40 MG IV (10:10)
[2025-09-04] MEDS: LIDOCAINE 4% PATCH 1 PATCH TOPICAL (10:10)
[2025-09-04] MEDS: MIRALAX 17 GRAMS PO (10:10)
[2025-09-04] MEDS: VISBIOME 1 CAP PO (10:10)
--- NOTE | 2025-09-04 13:24 | W.PN.GS2 ---
Today's Communication / Plan
-
Diet as tolerated, added supplements
Assessment / Plan
-
54 yo female presenting with N/V and abdominal pain
Obstruction series from 08/21 with persistent distention/obstruction
CT imaging from 08/22 with PO contrast with persistent obstruction, complete and high-grade with a discrete transition point in the lower abdomen at midline
XR 08/23 with worsening SB distention
POD#11 s/p diagnostic laparoscopy, SHANTA, appendectomy, biopsy of intra-peritoneal nodules
Pathology does not demonstrate any evidence of a cancerous process. Leiomyoma of the uterus. Symptoms likely related to scarring from chronic appendicitis. Pathology results were discussed directly with the patient. Ca 19-9 and CEA low,
chromogranin A within range
NGT out on 08/27
08/31 SBFT shows no obstruction
09/03 XR with retained contrast in colon
Continues to pass small stools/flatus. Cramping/mild distention persists. Resolving ileus.
AFVSS
Plan:
-- LRD with supplements
-- Probiotic, continue Miralax
-- Pain control: PRN Tylenol, Tramadol, Dilaudid
-- Abx: None indicated from General Surgery perspective
-- DVT: Lovenox, SCDs
-- GI PPI
Await more robust bowel function prior to discharge. Continue bowel regimen and LRD and follow progress.
Subjective Data
-
Date of Service: September 04, 2025
Pt seen and examined at bedside with Dr. Rockwell. Denies n/v. Tolerating diet but still feels cramping/bloating especially at night. Very small BM daily. Continues to pass flatus.
Objective Data
-
Intake and Output
09/03/25 09/04/25 09/05/25
06:59 06:59 06:59
Intake Total 1200 / 1200 960 / 960
Balance 1200 / 1200 960 / 960
Intake:
Oral fluids 1199 960 / 960
Other:
Number of approximated MODERATE 1 2
amounts of urine
Vital Signs
Temp Pulse Resp BP Pulse Ox
98.0 F 59 16 109/55 98
09/04/25 07:00 09/04/25 07:00 09/04/25 07:00 09/04/25 07:00 09/04/25 07:00
Lab Results
09/03/25 07:44
09/03/25 07:44
Calcium 9.4 mg/dl (8.4-10.2) 09/03/25 07:44
Phosphorus 4.6 mg/dl (2.5-4.5) H 08/30/25 04:08
Magnesium 2.2 mg/dl (1.6-2.3) 08/30/25 04:08
Total Bilirubin 0.4 mg/dl (0.2-1.3) 09/03/25 07:44
AST 33 U/L (14-36) 09/03/25 07:44
ALT 48 U/L (0-35) H 09/03/25 07:44
Alkaline Phosphatase 47 U/L (38-126) 09/03/25 07:44
Total Protein 6.7 g/dl (6.3-8.2) 09/03/25 07:44
Albumin 3.8 g/dl (3.5-5.0) 09/03/25 07:44
Physical Exam
-
Gen: NAD
Abd: soft, NT, mild distention, non-peritoneal, incisions c/d/i - no erythema, ecchymosis or drainage
Patient has a smith catheter: No
Patient has a central line: No
--- NOTE | 2025-09-04 14:53 | W.PN.HOSP.TC ---
Today's Communication/Plan
-
Advance diet per surgery
Follow-up with GI on outpatient
If patient passes a good bowel movement, stable for discharge.
Oncology consult to rule out malignancy
Assessment / Plan
Assessment / Plan
Assessment - Ms. Dueñas is a 54-year-old female with PMHx significant for IBS/ileus (many years ago) is admitted to the hospital for abdominal distention, pain and nausea with dry heaving found small bowel obstruction s/p diagnostic laparoscopy, SHANTA,
appendectomy, biopsy of intra-peritoneal nodules with Dr. Silver on 08/24.
Plan-
# Small bowel obstruction s/p diagnostic laparoscopy on 08/24, postop day 11.
Underwent appendectomy, lysis of adhesions, biopsy of intraperitoneal nodules.
NG tube removed on 08/27, s/p 7 days currently on low residue diet.
TPN discontinued on 09/01
PICC line discontinued on 09/02
Probiotics added, MiraLAX-no bowel movement
Follow-up abdominal x-ray on 09/03's showed ileus, and transition of contrast to colon and rectum.
Biopsy results showed atypical cells in the peritoneum, uterine nodule ended up to be leiomyoma, and negative for malignancy.
CA 19-9, CEA, chromogranin A levels normal.
Stool calprotectin greater than 3000, GI advised outpatient follow-up unless active issues.
Oral lozenges discontinued.
IV antibiotics discontinued on 08/25.
Oncology consulted to err on caution for atypical cells and questionable malignancy.
Multiple OTC supplements reviewed by pharmacist, discontinued.
BMI-
18.4, acute mild malnutrition from hospitalization-aspen criteria,
Currently on low-dose diet.
Hypokalemia-
Resolved
DVT prophylaxis-Lovenox
CODE STATUS-full code
Surgery added supplements to diet.
Stable for discharge if patient has a good bowel movement.
Anticipated Discharge: 24 - 48 hours
Subjective/Interval History
-
Date of Service: September 04, 2025
Reports some lower abdominal pain, and discomfort. Tolerating low residue diet well, had 2 small bowel movements, had MiraLAX but did not help much with the bowel movement. Continues to have ileus.
Objective Data
-
Vital Signs:
Vital Signs
Temp Pulse Resp BP Pulse Ox
98.0 F 59 16 109/55 98
09/04/25 07:00 09/04/25 07:00 09/04/25 07:00 09/04/25 07:00 09/04/25 07:00
I&O
09/03/25 09/04/25 09/05/25
06:59 06:59 06:59
Intake Total 1200 / 1200 960 / 960
Balance 1200 / 1200 960 / 960
Review of Systems
-
History Source: Patient
Constitutional: Reports No Symptoms
EENT: Reports No Symptoms Reported
Respiratory: Reports No Symptoms
Cardiac: Reports No Symptoms
Abdomen/GI: Reports Abdominal Pain, Constipated and Bloated; Denies Nausea, Vomiting or Diarrhea
Breast: Reports No Symptoms
Genitourinary: Reports No Symptoms
Musculoskeletal: Reports No Symptoms
Skin: Reports No Symptoms
Neuro: Reports No Symptoms
Endocrine: Reports No Symptoms
Hematologic / Lymphatic: Reports No Symptoms
Allergy / Immunology: Reports No Symptoms
Physical Exam
-
General: No Apparent Distress and Comfortable
HEENT: Moist Mucous Membranes
Respiratory: Clear to Auscultation; Negative Wheezes, Rales or Rhonchi
Cardiac: Regular Rhythm, S1/S2 and Gallop; Negative Murmur or Rub
GI: Soft, Nontender, Normal Bowel Sounds and Other (Mild abdominal distention,)
Musculoskeletal: No Clubbing, No Cyanosis and No Edema
Neuro: AO x 3
Psych: Calm
Data Reviewed
-
Ultrasound: Image personally visualized and interpreted, Report Reviewed by me and Discussed with Physician
Labs: Labs Reviewed by me, Discussed with Physician and Discussed with Patient
[2025-09-04 15:00] VITALS: BP 110/54
--- NOTE | 2025-09-04 15:06 | W.PN.UPDATE ---
Update Note
Progress Note Update
I saw and evaluated the patient with the residents
HPI: 54-year-old female with PMH significant for IBS/ileus (many years ago), p/w abdominal distention, pain, nausea 2/2 small bowel obstruction s/p diagnostic laparoscopy, SHANTA, appendectomy, biopsy of intra-peritoneal nodules with Dr. Silver on
08/24.
A/P:
# Small Bowel Obstruction s/p diagnostic laparoscopy, SHANTA, appendectomy, biopsy of intra-peritoneal nodules on 08/24
Cont current LRD
Monitor BM , cont current miralax
Abx XR from 09/03 showed Non-obstructive bowel gas pattern.
Noted path report showed scattered atypical cells
Consult Onc
Noted, off abx since 08/25
CODE STATUS: Full code
DVT ppx: Lovenox
[2025-09-04] MEDS: LOVENOX 40 MG SC (18:11)
[2025-09-04] MEDS: REMOVE LIDOCAINE PATCH 1 PATCH REMOVE (21:38)
[2025-09-05] VITALS: BP 98/59
[2025-09-05 06:18] VITALS: BMI 18.9
[2025-09-05 07:00] VITALS: BP 98/52
--- NOTE | 2025-09-05 08:26 | W.PN.HOSP.TC ---
Today's Communication/Plan
-
Pending good bowel movement.
Stable for discharge with outpatient oncology and GI follow-up once patient has bowel movement.
Continue current medical management.
Assessment / Plan
Assessment / Plan
Assessment - Ms. Dueñas is a 54-year-old female with PMHx significant for IBS/ileus (many years ago) is admitted to the hospital for abdominal distention, pain and nausea with dry heaving found small bowel obstruction s/p diagnostic laparoscopy, SHANTA,
appendectomy, biopsy of intra-peritoneal nodules with Dr. Silver on 08/24.
Plan-
# Small bowel obstruction s/p diagnostic laparoscopy on 08/24, postop day 11.
Underwent appendectomy, lysis of adhesions, biopsy of intraperitoneal nodules.
NG tube removed on 08/27, s/p 7 days currently on low residue diet.
TPN discontinued on 09/01
PICC line discontinued on 09/02
Probiotics added, MiraLAX-no bowel movement
Follow-up abdominal x-ray on 09/03's showed ileus, and transition of contrast to colon and rectum.
Biopsy results showed atypical cells in the peritoneum, uterine nodule ended up to be leiomyoma, and negative for malignancy.
CA 19-9, CEA, chromogranin A levels normal.
Stool calprotectin greater than 3000, GI advised outpatient follow-up unless active issues.
Oral lozenges discontinued.
IV antibiotics discontinued on 08/25.
Oncology consulted to err on the side of caution for atypical cells and questionable malignancy.
Oncology workup-CEA and CA125, recommended outpatient follow-up.
Multiple OTC supplements reviewed by pharmacist, discontinued.
BMI-
18.4, acute mild malnutrition from hospitalization-aspen criteria,
Currently on low-dose diet.
Hypokalemia-
Resolved
DVT prophylaxis-Lovenox
CODE STATUS-full code
Surgery added supplements to diet.
Stable for discharge if patient has a good bowel movement.
Anticipated Discharge: Within 24 hours
Subjective/Interval History
-
Date of Service: September 05, 2025
No bowel movement after 09/03/2025. Patient is continuing to take MiraLAX, and has been consistent with low residue diet.
She feels bloated in her lower abdomen with discomfort upon lying on her left lateral side.
She has been passing gas, denies nausea, emesis, and reflux.
Objective Data
-
Vital Signs:
Vital Signs
Temp Pulse Resp BP Pulse Ox
97.8 F 56 17 98/52 98
09/05/25 07:00 09/05/25 07:00 09/05/25 07:00 09/05/25 07:00 09/05/25 07:00
I&O
09/04/25 09/05/25 09/06/25
06:59 06:59 06:59
Intake Total 960 / 960 700 / 700
Balance 960 / 960 700 / 700
Review of Systems
-
History Source: Patient
Constitutional: Reports No Symptoms
EENT: Reports No Symptoms Reported
Respiratory: Reports No Symptoms
Cardiac: Reports No Symptoms
Abdomen/GI: Reports Constipated and Bloated; Denies Abdominal Pain, Nausea or Vomiting
Genitourinary: Reports No Symptoms
Musculoskeletal: Reports No Symptoms
Skin: Reports No Symptoms
Endocrine: Reports No Symptoms
Hematologic / Lymphatic: Reports No Symptoms
Physical Exam
-
General: No Apparent Distress and Comfortable
HEENT: Moist Mucous Membranes
Respiratory: Clear to Auscultation; Negative Wheezes, Rales, Rhonchi or Crackles
Cardiac: Regular Rhythm and S1/S2; Negative Murmur, Rub or Gallop
GI: Soft, Nontender, Normal Bowel Sounds and Distended (Mild distention in the lower quadrant)
Musculoskeletal: No Clubbing, No Cyanosis and No Edema
Skin: Warm
Neuro: AO x 3 and No Motor Deficits
Psych: Calm
[2025-09-05] MEDS: VISBIOME 1 CAP PO (09:32)
[2025-09-05] MEDS: MIRALAX 17 GRAMS PO (09:32)
[2025-09-05] MEDS: LIDOCAINE 4% PATCH 1 PATCH TOPICAL (09:32)
[2025-09-05] MEDS: PROTONIX 40 MG PO (09:32)
--- NOTE | 2025-09-05 11:09 | CON.ONC ---
Consultation
-
Date Consultation Requested: 09/04/25
Date Consultation Performed: 09/05/25
Impression
Impression
Small bowel obstruction status post diagnostic laparoscopy, SHANTA, appendectomy, biopsy of intraperitoneal lymph nodes
Atypical cells apparent on pathology but nonspecific for malignancy
Plan
Plan
CEA and Ca125
Will make arrangements for outpatient follow-up to discuss follow-up imaging
Patient History
History of Present Illness
The patient is a 54-year-old female with a past medical history of psoriatic arthritis, remote irritable bowel syndrome and gastroesophageal reflux disease, and unspecified thyroid issues. Past surgical history of sigmoid polypectomy and breast
augmentation. She presented with diffuse abdominal pain associated with nausea and abdominal distension. She reports a history of episodic, crampy abdominal pain localized to the lateral lower quadrants over the past several years, which she
previously attributed to stress. CT showed: several severely abnormal loops of small bowel with moderate circumferential bowel wall thickening and enhancement mostly proximal and mid jejunum. Distal jejunum shows mild bowel wall thickening and
enhancement. Edematous intraperitoneal fat and mild free fluid. She is now evaluated post diagnostic laparoscopy, SHANTA, appendectomy, biopsy of intraperitoneal and nodules on 08/24
Past-Medical/Surgical History
Past Medical History
Past Medical History: GERD (remote) and Other (IBS (remote), psoriatic arthritis
Past Surgical History: Sigmoid polypectomy, breast augmentatio
Social History
Tobacco: Non-Smoker
Alcohol: None
Drug: None
Personal: Single
Living: Alone
Family History
Family History: No malignancy history
Patient Medication
�Medication �Instructions �Recorded �Confirmed �Last Taken �Type
No Meds [No Current Medications] 08/18/25 08/18/25 Unknown History
Active Medications
Generic Name Dose Route Start Last Admin
Trade Name Freq PRN Reason Stop Dose Admin
Acetaminophen 1,000 mg 09/04/25 07:40
Acetaminophen 500 Mg Tablet PO 10/02/25 07:38
Q6HPRN PRN
mild pain
Benzocaine/Menthol 1 lozenge 08/20/25 22:22 08/21/25 17:51
Benzocaine/Menthol Lozenge PO 09/17/25 22:21 1 lozenge
Q1HPRN PRN Administration
sore throat
Enoxaparin Sodium 40 mg 08/19/25 18:00 09/04/25 18:11
Enoxaparin Sodium 40 Mg/0.4 Ml Syringe SC 09/16/25 17:59 40 mg
QPM CRISTINA Administration
Lactobacillus/Bifidobacterium 1 cap 08/31/25 08:30 09/05/25 09:32
Lactobac/Bifidobac (Visbiome) PO 09/28/25 08:29 1 cap
DAILY CRISTINA Administration
Lidocaine 1 patch 08/28/25 09:15 09/05/25 09:32
Lidocaine 4% Topical Patch TOPICAL 09/25/25 09:14 1 patch
DAILY CRISTINA Administration
Protocol
Lorazepam 0.5 mg 08/29/25 10:47
Lorazepam 0.5 Mg Tablet PO 09/26/25 10:46
BIDPRN PRN
anxiety
Ondansetron HCl 4 mg 08/18/25 21:49 08/28/25 21:55
Ondansetron 4 Mg/2 Ml Vial IV 09/15/25 21:48 4 mg
Q6HPRN PRN Administration
NAUSEA/VOMITING
Pantoprazole Sodium 40 mg 09/05/25 08:00 09/05/25 09:32
Pantoprazole 40 Mg Delayed Release Tablet PO 10/03/25 07:59 40 mg
DAILY CRISTINA Administration
Patch Removal 0 patch 08/28/25 20:00 09/04/25 21:38
Remove Lidocaine Patch REMOVE 09/25/25 19:59 1 patch
DAILY@2000 CRISTINA Administration
Phenol 0 spray 08/19/25 22:48
Chloraseptic (1.4% Phenol) Throat [place] PO 09/16/25 22:47
Q2HPRN PRN
sore throat
Polyethylene Glycol 17 grams 09/02/25 11:00 09/05/25 09:32
Polyethylene Glycol Powder 17 Grams Packet PO 09/30/25 10:59 17 grams
DAILY CRISTINA Administration
Simethicone 80 mg 08/29/25 20:05 09/01/25 00:16
Simethicone 80 Mg Chewable Tablet PO 09/26/25 20:04 80 mg
QIDPRN PRN Administration
gas pain
Sodium Chloride 0 flush 08/18/25 22:00
Sodium Chloride 0.9% (Flush) Syringe IV 09/15/25 21:59
PER PROTOCOL CRISTINA
Tramadol HCl 50 mg 08/29/25 10:45
Tramadol Hcl 50 Mg Tablet PO 09/26/25 10:44
Q6HPRN PRN
moderate pain
Review of Systems
-
Essentially unremarkable for 12 point review systems other than as expected abdominal discomfort postoperatively
Physical Exam
-
General: Well Developed, Well Nourished and No Apparent Distress
HEENT: Moist Mucous Membranes
Cardiology: Normal Sinus Rhythm
Pulmonary: Clear
GI: Other (Tender postop)
Extremities: No C/C/E
Neurology: Non Focal
Hematologic / Lymphatic: No Lymphadenopathy
Labs
Lab Results
WBC 3.8 10^3/uL (4.8-10.8) L 09/03/25 07:44
RBC 3.57 10^6/uL (4.20-5.40) L 09/03/25 07:44
Hgb 11.9 g/dL (12.0-16.0) L 09/03/25 07:44
Hct 34.9 % (37.0-47.0) L 09/03/25 07:44
MCV 97.8 fL (81.0-99.0) 09/03/25 07:44
MCH 33.3 pg (27.0-31.0) H 09/03/25 07:44
MCHC 34.1 g/dL (33.0-37.0) 09/03/25 07:44
RDW 13.0 % (11.5-14.5) 09/03/25 07:44
Plt Count 426 10^3/uL (130-400) H 09/03/25 07:44
MPV 9.3 fL (7.4-10.4) 09/03/25 07:44
Abs Immat Gran (auto) 0.0 10^3/uL (0-0.05) 09/03/25 07:44
Absolute Neuts (auto) 1.8 10^3/uL (1.4-6.5) 09/03/25 07:44
Absolute Lymphs (auto) 1.5 10^3/uL (1.2-3.4) 09/03/25 07:44
Absolute Monos (auto) 0.3 10^3/uL (0.1-0.6) 09/03/25 07:44
Absolute Eos (auto) 0.1 10^3/uL (0-0.7) 09/03/25 07:44
Absolute Basos (auto) 0.1 10^3/uL (0-0.2) 09/03/25 07:44
Immature Gran % 0.3 % (0-0.5) 09/03/25 07:44
Neutrophils % 47.3 % (42.2-75.2) 09/03/25 07:44
Lymphocytes % 39.1 % (20.5-51.1) 09/03/25 07:44
Monocytes % 8.9 % (1.7-9.3) 09/03/25 07:44
Eosinophils % 2.6 % (0-6) 09/03/25 07:44
Basophils % 1.8 % (0-2) 09/03/25 07:44
Creatinine 0.5 mg/dL (0.6-1.0) L 09/03/25 07:44
Vital Signs
Vital Signs
Temp Pulse Resp BP Pulse Ox
97.8 F 56 17 98/52 98
09/05/25 07:00 09/05/25 07:00 09/05/25 07:00 09/05/25 07:00 09/05/25 07:00
--- NOTE | 2025-09-05 11:25 | W.PN.UPDATE ---
Update Note
Progress Note Update
I saw and evaluated the patient with the residents
HPI: 54-year-old female with PMH significant for IBS/ileus (many years ago), p/w abdominal distention, pain, nausea 2/2 small bowel obstruction s/p diagnostic laparoscopy, SHANTA, appendectomy, biopsy of intra-peritoneal nodules with Dr. Silver on
08/24.
A/P:
# Small Bowel Obstruction s/p diagnostic laparoscopy, SHANTA, appendectomy, biopsy of intra-peritoneal nodules on 08/24
Cont current LRD
Monitor BM , cont current miralax
Abx XR from 09/03 showed Non-obstructive bowel gas pattern.
Noted path report showed scattered atypical cells
Appreciate Onc input, check CEA and Ca125, recc outpatient follow-up to discuss follow-up imaging
Noted, off abx since 08/25
CODE STATUS: Full code
DVT ppx: Lovenox
DW Onc
--- NOTE | 2025-09-05 13:41 | W.PN.GS2 ---
Today's Communication / Plan
-
LRD
Assessment / Plan
-
54 yo female presenting with N/V and abdominal pain
Obstruction series from 08/21 with persistent distention/obstruction
CT imaging from 08/22 with PO contrast with persistent obstruction, complete and high-grade with a discrete transition point in the lower abdomen at midline
XR 08/23 with worsening SB distention
POD#12 s/p diagnostic laparoscopy, SHANTA, appendectomy, biopsy of intra-peritoneal nodules
Pathology does not demonstrate any evidence of a cancerous process. Leiomyoma of the uterus. Symptoms likely related to scarring from chronic appendicitis. Pathology results were discussed directly with the patient. Ca 19-9 and CEA low,
chromogranin A within range. Some nonspecific atypical cells in fluid sent from OR. Seen by hematology at hospitalist request to discuss atypical cells.
NGT out on 08/27
08/31 SBFT shows no obstruction
09/03 XR with retained contrast in colon
Continues to pass small stools/flatus. Cramping/mild distention persists. Resolving ileus.
AFVSS
Plan:
-- LRD with supplements
-- Probiotic, continue Miralax
-- Pain control: PRN Tylenol, Tramadol, Dilaudid
-- Abx: None indicated from General Surgery perspective
-- DVT: Lovenox, SCDs
-- GI PPI
Dispo planning as per primary team. She is unsure if she feels well enough to return home where she lives alone but making progress day by day. Anticipate in the next 24-48hours
Subjective Data
-
Date of Service: September 05, 2025
Pt seen and examined at bedside with Dr. Rockwell. Denies n/v. Tolerating diet but still with poor intake, was able to drink an ensure. Passing gas, small bm yesterday but none today.
Objective Data
-
Intake and Output
09/04/25 09/05/25 09/06/25
06:59 06:59 06:59
Intake Total 960 / 960 700 / 700
Balance 960 / 960 700 / 700
Intake:
Oral fluids 960 / 960 700 / 700
Other:
Number of approximated MODERATE 2
amounts of urine
Vital Signs
Temp Pulse Resp BP Pulse Ox
97.8 F 56 17 98/52 98
09/05/25 07:00 09/05/25 07:00 09/05/25 07:00 09/05/25 07:00 09/05/25 07:00
Lab Results
09/03/25 07:44
09/03/25 07:44
Calcium 9.4 mg/dl (8.4-10.2) 09/03/25 07:44
Phosphorus 4.6 mg/dl (2.5-4.5) H 08/30/25 04:08
Magnesium 2.2 mg/dl (1.6-2.3) 08/30/25 04:08
Total Bilirubin 0.4 mg/dl (0.2-1.3) 09/03/25 07:44
AST 33 U/L (14-36) 09/03/25 07:44
ALT 48 U/L (0-35) H 09/03/25 07:44
Alkaline Phosphatase 47 U/L (38-126) 09/03/25 07:44
Total Protein 6.7 g/dl (6.3-8.2) 09/03/25 07:44
Albumin 3.8 g/dl (3.5-5.0) 09/03/25 07:44
Physical Exam
-
Gen: NAD
Abd: soft, NT, ND, non-peritoneal, incisions c/d/i - no erythema, ecchymosis or drainage
Patient has a smith catheter: No
Patient has a central line: No
[2025-09-05 15:00] VITALS: BP 121/92
[2025-09-05] MEDS: LOVENOX 40 MG SC (17:38)
[2025-09-05] MEDS: REMOVE LIDOCAINE PATCH 1 PATCH REMOVE (21:44)
[2025-09-05] MEDS: FLUSH (NSS) 1 FLUSH IV (21:45)
[2025-09-05 23:00] VITALS: BP 93/51
[2025-09-06 06:00] VITALS: BMI 19.1
[2025-09-06 07:00] VITALS: BP 109/56
[2025-09-06 08:17] LABS: Hematocrit 35.6 % (37.0-47.0); Hemoglobin 12.2 g/dL (12.0-16.0); Mean Corp Hgb Conc. 34.3 g/dL (33.0-37.0); Mean Corpuscular Volume 100.3 fL (81.0-99.0); Platelet Count 371 10^3/uL (130-400); Red Cell Dist. Width 12.8 % (11.5-14.5)
--- NOTE | 2025-09-06 08:19 | W.PN.ONC2 ---
Today's Communication / Plan
-
discharge planning
Impression
Impression
54 yo female presenting with N/V and abdominal pain
Small bowel obstruction
status post diagnostic laparoscopy, SHANTA, appendectomy, biopsy of intraperitoneal lymph nodes with Dr. Silver on 08/24 -pathology notable for atypical cells but nonspecific for malignancy. CEA and chromogranin A normal. CA125 elevated to 175
Plan
Plan
I will discuss with surgery if additional perineal sample should be obtained with atypical cells noted on prior sample
Subjective/Objective
Subjective
afebrile, no hypoxia or hypotension
using a lidoderm patch for pain
using miralax for constipation
Vital Signs:
Vital Signs
Temp Pulse Resp BP Pulse Ox
97.8 F 58 16 109/56 100
09/06/25 07:00 09/06/25 07:00 09/06/25 07:00 09/06/25 07:00 09/06/25 07:00
Lab Results:
Laboratory Data
WBC 4.1 10^3/uL (4.8-10.8) L 09/06/25 07:41
Hgb 12.2 g/dL (12.0-16.0) 09/06/25 07:41
Plt Count 371 10^3/uL (130-400) 09/06/25 07:41
eGFR > 60.00 09/03/25 07:44
Physical Exam
RUE PICC
HEENT: Moist Mucous Membranes; No Jaundice
Pulmonary: Other (unlabored)
GI: Soft
Extremities: Pulses Present
Neuro: Non Focal
[2025-09-06 09:12] LABS: ALT (SGPT) 47 U/L (0-35); AST (SGOT) 32 U/L (14-36); Albumin 4.0 g/dl (3.5-5.0); Alkaline Phosphatase 47 U/L (38-126); Blood Urea Nitrogen 16 mg/dl (7-17); Calcium 9.6 mg/dl (8.4-10.2); Carbon Dioxide 29 mmol/L (22-30); Chloride 103 mmol/L (98-107); Estimated Creatinine Clearance 92 ml/min; Glucose 88 mg/dl (70-99); Magnesium 2.1 mg/dl (1.6-2.3); Potassium 4.4 mmol/L (3.5-5.1); Sodium 138 mmol/L (135-145); Total Protein 7.2 g/dl (6.3-8.2); Triglycerides 95 mg/dl (10-149); eGFR > 60.00
--- NOTE | 2025-09-06 10:32 | W.PN.HOSP.TC ---
Today's Communication/Plan
-
f/u Abd XR
Ensure TID
Sennakot S
Assessment / Plan
Assessment / Plan
Assessment - Ms. Dueñas is a 54-year-old female with PMHx significant for IBS/ileus (many years ago) is admitted to the hospital for abdominal distention, pain and nausea with dry heaving found small bowel obstruction s/p diagnostic laparoscopy, SHANTA,
appendectomy, biopsy of intra-peritoneal nodules with Dr. Silver on 08/24.
Plan-
# Small bowel obstruction s/p diagnostic laparoscopy on 08/24, postop day 13.
Underwent appendectomy, lysis of adhesions, biopsy of intraperitoneal nodules.
Surgery, Hem/Onc (re: atypical cells on cytology), and Nutrition following, GI recs as prior
Ensure drinks TID.
Follow-up Abdominal XR.
NG tube removed on 08/27, s/p 7 days currently on low residue diet.
TPN discontinued on 09/01.
PICC line discontinued on 09/02.
Probiotics added, MiraLAX, Sennakot S-no bowel movement
Follow-up abdominal x-ray on 09/03's showed ileus, and transition of contrast to colon and rectum.
Biopsy results showed atypical cells in the peritoneum, uterine nodule ended up as leiomyoma, and negative for malignancy.
CA 19-9, CEA, chromogranin A levels normal. CA 125 elevated 175. F/u with oncology OP.
Stool calprotectin greater than 3000, GI advised outpatient follow-up unless active issues.
Oral lozenges discontinued.
IV antibiotics discontinued on 08/25.
Multiple OTC supplements reviewed by pharmacist, discontinued.
BMI-
19.4, acute mild malnutrition from hospitalization-aspen criteria,
Currently on low-dose diet.
Hypokalemia-
Resolved
DVT prophylaxis-Lovenox
CODE STATUS-full code
Surgery added supplements to diet.
Stable for discharge if patient has a good bowel movement.
Anticipated Discharge: 24 - 48 hours
Subjective/Interval History
-
Date of Service: September 06, 2025
- This morning, reports ongoing dizziness with standing intermittently - feels it's more weakness from not eating as much as she does. Has not tried the abdominal binder -- I encouraged her to so and ordered Timothy Stockings as well.
- Her last BM was Saturday, 'silt' like. Still passing flatus without a BM since. Added Sennakot S to bowerl regimen. Abd XR ordered.
Objective Data
-
Labs:
Laboratory Results
09/06/25
07:41
WBC 4.1 L
Hgb 12.2
Hct 35.6 L
Plt Count 371
Sodium 138
Potassium 4.4
Chloride 103
Carbon Dioxide 29
BUN 16
Creatinine 0.5 L
Glucose 88
Calcium 9.6
Total Bilirubin 0.6
AST 32
ALT 47 H
Alkaline Phosphatase 47
Vital Signs:
Vital Signs
Temp Pulse Resp BP Pulse Ox
97.8 F 58 16 109/56 100
09/06/25 07:00 09/06/25 07:00 09/06/25 07:00 09/06/25 07:00 09/06/25 07:00
I&O
09/05/25 09/06/25 09/07/25
06:59 06:59 06:59
Intake Total 700 / 700 1180 / 1180
Balance 700 / 700 1180 / 1180
Physical Exam
-
General: Well Developed, Well Nourished, No Apparent Distress, Comfortable, Conversant and Cachectic
HEENT: Normocephalic, Atraumatic, Moist Mucous Membranes and PERRLA
Respiratory: Clear to Auscultation
Cardiac: Regular Rhythm and S1/S2
GI: Soft, Nontender, Nondistended and Normal Bowel Sounds
Musculoskeletal: No Clubbing, No Cyanosis and No Edema
Skin: Warm and Dry
Neuro: AO x 3
Psych: Calm and Intact Judgement/Insight
[2025-09-06] MEDS: PROTONIX 40 MG PO (11:04)
[2025-09-06] MEDS: LIDOCAINE 4% PATCH TOPICAL (11:04)
[2025-09-06] MEDS: VISBIOME 1 CAP PO (11:04)
[2025-09-06] MEDS: MIRALAX 17 GRAMS PO (11:04)
--- NOTE | 2025-09-06 12:30 | W.PN.GS2 ---
Today's Communication / Plan
-
reglan/xr in am
Assessment / Plan
-
54 yo female presenting with N/V and abdominal pain
Obstruction series from 08/21 with persistent distention/obstruction
CT imaging from 08/22 with PO contrast with persistent obstruction, complete and high-grade with a discrete transition point in the lower abdomen at midline
XR 08/23 with worsening SB distention
POD#13 s/p diagnostic laparoscopy, SHANTA, appendectomy, biopsy of intra-peritoneal nodules
Pathology does not demonstrate any evidence of a cancerous process. Leiomyoma of the uterus. Symptoms likely related to scarring from chronic appendicitis. Pathology results were discussed directly with the patient. Ca 19-9 and CEA low,
chromogranin A within range. Some nonspecific atypical cells in fluid sent from OR. Seen by hematology at hospitalist request to discuss atypical cells.
NGT out on 08/27
08/31 SBFT shows no obstruction
09/03 XR with retained contrast in colon
09/06 XR with large gastric bubble, ?gastric ileus
Continues to pass small stools/flatus. Cramping/mild distention persists.
AFVSS
Plan:
-- LRD with supplements
-- Probiotic, continue Miralax
-- Start Reglan AC/HS
-- XR in AM
-- Pain control: PRN Tylenol, Tramadol, Dilaudid
-- Abx: None indicated from General Surgery perspective
-- DVT: Lovenox, SCDs
-- GI PPI
Subjective Data
-
Date of Service: September 06, 2025
Pt seen and examined at bedside with Dr. Mclean. Persistent discomfort at night with cramping across her abdomen. Passing gas, small stools but not much.
Objective Data
-
Intake and Output
09/05/25 09/06/25 09/07/25
06:59 06:59 06:59
Intake Total 700 / 700 1180 / 1180
Balance 700 / 700 1180 / 1180
Intake:
Oral fluids 700 / 700 1180 / 1180
Other:
Number of approximated SMALL 1
amounts of urine
Number of approximated MODERATE 4
amounts of urine
Vital Signs
Temp Pulse Resp BP Pulse Ox
97.8 F 58 16 109/56 100
09/06/25 07:00 09/06/25 07:00 09/06/25 07:00 09/06/25 07:00 09/06/25 07:00
Lab Results
09/06/25 07:41
09/06/25 07:41
Calcium 9.6 mg/dl (8.4-10.2) 09/06/25 07:41
Phosphorus 4.3 mg/dl (2.5-4.5) 09/06/25 07:41
Magnesium 2.1 mg/dl (1.6-2.3) 09/06/25 07:41
Total Bilirubin 0.6 mg/dl (0.2-1.3) 09/06/25 07:41
AST 32 U/L (14-36) 09/06/25 07:41
ALT 47 U/L (0-35) H 09/06/25 07:41
Alkaline Phosphatase 47 U/L (38-126) 09/06/25 07:41
Total Protein 7.2 g/dl (6.3-8.2) 09/06/25 07:41
Albumin 4.0 g/dl (3.5-5.0) 09/06/25 07:41
Physical Exam
-
Gen: NAD
Abd: soft, NT, ND, non-peritoneal, incisions c/d/i - no erythema, ecchymosis or drainage
Patient has a smith catheter: No
Patient has a central line: No
--- NOTE | 2025-09-06 12:48 | W.PN.UPDATE ---
Update Note
Progress Note Update
HPI: 54-year-old female with PMH significant for IBS/ileus (many years ago), p/w abdominal distention, pain, nausea 2/2 small bowel obstruction s/p diagnostic laparoscopy, SHANTA, appendectomy, biopsy of intra-peritoneal nodules with Dr. Silver on
08/24.
A/P:
# Small Bowel Obstruction s/p diagnostic laparoscopy, SHANTA, appendectomy, biopsy of intra-peritoneal nodules on 08/24
Cont current LRD
Monitor BM , cont current miralax , pt reluctant to add additional BM regimen such as Senokot-S
Abx XR 09/03 showed Non-obstructive bowel gas pattern.
Repeat AXR today 09/06 with Nonobstructive bowel gas pattern. Decreased contrast in colon. Mild gaseous distention of the stomach, similar to prior.
Reglan added by GS and repeat AXR 09/07
Could consider Maalox too if pt willing to try.
Noted path report showed scattered atypical cells
Appreciate Onc input,
CEA was negative, CA19-9 negative; Ca125 mildly elevated at 175
Follow up Onc outpt
Noted, off abx since 08/25
CODE STATUS: Full code
DVT ppx: Lovenox
total time 51 min
[2025-09-06] MEDS: REGLAN 10 MG PO ×2 (13:31→17:35)
[2025-09-06] MEDS: SENOKOT-S 1 TABLET PO (13:31)
[2025-09-06 15:00] VITALS: BP 93/55
[2025-09-06] MEDS: LOVENOX 40 MG SC (17:35)
[2025-09-06 18:29] LABS: CA 125 70.7 U/mL (0-35)
[2025-09-06 19:55] LABS: CEA 1.18 ng/ml
[2025-09-06] MEDS: REMOVE LIDOCAINE PATCH 1 PATCH REMOVE (22:30)
[2025-09-06] MEDS: SENOKOT-S PO (22:32)
[2025-09-06] MEDS: REGLAN PO (22:33)
[2025-09-06 23:00] VITALS: BP 103/43
[2025-09-07 05:42] VITALS: BMI 19.4
[2025-09-07 07:43] VITALS: BP 107/50
[2025-09-07] MEDS: SENOKOT-S 1 TABLET PO ×2 (08:06→21:02)
[2025-09-07] MEDS: REGLAN 10 MG PO ×4 (08:06→21:02)
[2025-09-07] MEDS: MIRALAX 17 GRAMS PO (08:06)
[2025-09-07] MEDS: VISBIOME 1 CAP PO (08:06)
[2025-09-07] MEDS: PROTONIX 40 MG PO (08:06)
[2025-09-07 08:09] LABS: Hematocrit 35.2 % (37.0-47.0); Hemoglobin 11.4 g/dL (12.0-16.0); Mean Corp Hgb Conc. 32.4 g/dL (33.0-37.0); Mean Corpuscular Volume 102.0 fL (81.0-99.0); Nucleated Red Blood Cells % 0 %; Platelet Count 336 10^3/uL (130-400); Red Cell Dist. Width 13.2 % (11.5-14.5)
[2025-09-07] MEDS: LIDOCAINE 4% PATCH TOPICAL (08:13)
[2025-09-07 08:28] LABS: ALT (SGPT) 42 U/L (0-35); AST (SGOT) 27 U/L (14-36); Albumin 3.8 g/dl (3.5-5.0); Alkaline Phosphatase 46 U/L (38-126); Blood Urea Nitrogen 16 mg/dl (7-17); Calcium 9.3 mg/dl (8.4-10.2); Carbon Dioxide 28 mmol/L (22-30); Chloride 104 mmol/L (98-107); Estimated Creatinine Clearance 93 ml/min; Glucose 97 mg/dl (70-99); Potassium 4.2 mmol/L (3.5-5.1); Sodium 137 mmol/L (135-145); Total Protein 6.8 g/dl (6.3-8.2); eGFR > 60.00
--- NOTE | 2025-09-07 09:07 | W.PN.HOSP.TC ---
Today's Communication/Plan
-
2 BMs since yesterday
AXR today with imrpovement
dc tmrw to home
suppository prn
Assessment / Plan
Assessment / Plan
Assessment - Ms. Dueñas is a 54-year-old female with PMHx significant for IBS/ileus (many years ago) is admitted to the hospital for abdominal distention, pain and nausea with dry heaving found small bowel obstruction s/p diagnostic laparoscopy, SHANTA,
appendectomy, biopsy of intra-peritoneal nodules with Dr. Silver on 08/24.
Plan-
# Small bowel obstruction s/p diagnostic laparoscopy on 08/24, postop day 14.
Underwent appendectomy, lysis of adhesions, biopsy of intraperitoneal nodules.
Surgery, Hem/Onc (re: atypical cells on cytology), and Nutrition following, GI recs as prior
Ensure drinks TID.
Abdominal XR 09/06 with Nonobstructive bowel gas pattern. Contrast from previous CT remains within the colon, decreased as compared with previous exam. Mild gaseous distention of the stomach, similar to prior. 09/07: No acute radiographic
abnormality in the abdomen. Stomach is no longer distended.
NG tube removed on 08/27, s/p 7 days currently on low residue diet.
TPN discontinued on 09/01.
PICC line discontinued on 09/02.
Probiotics, MiraLAX, Sennakot S, Colace, Suppository - 2 BMs since 09/06
Follow-up abdominal x-ray on 09/03's showed ileus, and transition of contrast to colon and rectum.
Biopsy results showed atypical cells in the peritoneum, uterine nodule ended up as leiomyoma, and negative for malignancy.
CA 19-9, CEA, chromogranin A levels normal. CA 125 elevated 175 08/29, 70.7 09/05. F/u with oncology OP.
Stool calprotectin greater than 3000, GI advised outpatient follow-up unless active issues.
Oral lozenges discontinued.
IV antibiotics discontinued on 08/25.
Multiple OTC supplements reviewed by pharmacist, discontinued.
BMI-
19.4, acute mild malnutrition from hospitalization-aspen criteria,
Currently on low-dose diet.
Hypokalemia-
Resolved
DVT prophylaxis-Lovenox
CODE STATUS-full code
Dispo: tomorrow to home
Anticipated Discharge: Within 24 hours
Subjective/Interval History
-
Date of Service: September 07, 2025
- This morning, she reports having a BM, in addition to one yesterday, that was small and formed. She's anxious about going home and wants to stay another day to she how the Reglan effects her system. We discussed suppository in case she wants to
try it later today. DC tomorrow per conversation with surgery.
Objective Data
-
Labs:
Laboratory Results
09/07/25
07:42
WBC 3.9 L
Hgb 11.4 L
Hct 35.2 L
Plt Count 336
Sodium 137
Potassium 4.2
Chloride 104
Carbon Dioxide 28
BUN 16
Creatinine 0.5 L
Glucose 97
Calcium 9.3
Total Bilirubin 0.5
AST 27
ALT 42 H
Alkaline Phosphatase 46
Vital Signs:
Vital Signs
Temp Pulse Resp BP Pulse Ox
97.9 F 55 16 107/50 100
09/07/25 07:43 09/07/25 07:43 09/07/25 07:43 09/07/25 07:43 09/07/25 07:43
I&O
09/06/25 09/07/25 09/08/25
06:59 06:59 06:59
Intake Total 1180 / 1180 1260 / 1260
Balance 1180 / 1180 1260 / 1260
Physical Exam
-
General: Well Developed, Well Nourished, No Apparent Distress, Comfortable, Conversant and Cachectic
HEENT: Normocephalic, Atraumatic, Moist Mucous Membranes and PERRLA
Respiratory: Clear to Auscultation
Cardiac: Regular Rhythm and S1/S2
GI: Soft, Nontender, Nondistended and Normal Bowel Sounds
Skin: Warm and Dry
Neuro: AO x 3
Psych: Anxious
--- NOTE | 2025-09-07 10:14 | W.PN.GS2 ---
Today's Communication / Plan
-
-- No changes from surgical perspective
Assessment / Plan
-
54 yo female presenting with N/V and abdominal pain
Obstruction series from 08/21 with persistent distention/obstruction
CT imaging from 08/22 with PO contrast with persistent obstruction, complete and high-grade with a discrete transition point in the lower abdomen at midline
XR 08/23 with worsening SB distention
POD#14 s/p diagnostic laparoscopy, SHANTA, appendectomy, biopsy of intra-peritoneal nodules
Pathology does not demonstrate any evidence of a cancerous process. Leiomyoma of the uterus. Symptoms likely related to scarring from chronic appendicitis. Pathology results were discussed directly with the patient. Ca 19-9 and CEA low,
chromogranin A within range, elevated CA125. Some nonspecific atypical cells in fluid sent from OR. Seen by Heme/Onc to discuss atypical cells.
NGT out on 08/27
08/31 SBFT shows no obstruction
09/03 XR with retained contrast in colon
09/06 XR with large gastric bubble, ?gastric ileus
09/07 XR stable, slightly improve gastric distension
Continues to pass small stools/flatus. Cramping/mild distention persists.
AFVSS
Plan:
-- LRD with supplements
-- Probiotic, continue Miralax and Colace
-- Continue Reglan AC/HS
-- Pain control: PRN Tylenol, Tramadol, Dilaudid
-- Abx: None indicated from General Surgery perspective
-- DVT: Lovenox, SCDs
-- GI PPI
-- OK for DC from surgical perspective, tentative plan for tomorrow after discussion with patient
Subjective Data
-
Date of Service: September 07, 2025
Overall feels the same. Continues with some mild intermittent crampy abdominal discomfort and bloating. No nausea or vomiting. Passed a formed, nonbloody stool this AM. Fevers. No clear improvement on Reglan, though only received 2 doses.
Objective Data
-
Intake and Output
09/06/25 09/07/25 09/08/25
06:59 06:59 06:59
Intake Total 1180 / 1180 1260 / 1260
Balance 1180 / 1180 1260 / 1260
Intake:
Oral fluids 1180 / 1180 1260 / 1260
Other:
Number of approximated SMALL 1
amounts of urine
Number of approximated MODERATE 4 5
amounts of urine
Vital Signs
Temp Pulse Resp BP Pulse Ox
97.9 F 55 16 107/50 100
09/07/25 07:43 09/07/25 07:43 09/07/25 07:43 09/07/25 07:43 09/07/25 07:43
Lab Results
09/07/25 07:42
09/07/25 07:42
Calcium 9.3 mg/dl (8.4-10.2) 09/07/25 07:42
Phosphorus 4.3 mg/dl (2.5-4.5) 09/06/25 07:41
Magnesium 2.1 mg/dl (1.6-2.3) 09/06/25 07:41
Total Bilirubin 0.5 mg/dl (0.2-1.3) 09/07/25 07:42
AST 27 U/L (14-36) 09/07/25 07:42
ALT 42 U/L (0-35) H 09/07/25 07:42
Alkaline Phosphatase 46 U/L (38-126) 09/07/25 07:42
Total Protein 6.8 g/dl (6.3-8.2) 09/07/25 07:42
Albumin 3.8 g/dl (3.5-5.0) 09/07/25 07:42
Physical Exam
-
Gen: NAD
Abd: soft, NT, minimal stable soft distension, non-peritoneal, incisions c/d/i - no erythema, ecchymosis or drainage
Patient has a smith catheter: No
Patient has a central line: No
--- NOTE | 2025-09-07 12:25 | CM ---
Spoke with patient in room.
Tolerating low residue diet.
Pt had small BM.
Pt offered VN she declined need.
She does live alone Her friend will drive her home at pr.
She will need out pt PT script . Pt will set up own out pt PT after cleared by surgeon.
PT indicated no skilled needs.
PLAN Home no anticipated needs
--- NOTE | 2025-09-07 12:52 | W.PN.UPDATE ---
Update Note
Progress Note Update
I saw and evaluated the patient with the residents
HPI: 54-year-old female with PMH significant for IBS/ileus (many years ago), p/w abdominal distention, pain, nausea 2/2 small bowel obstruction s/p diagnostic laparoscopy, SHANTA, appendectomy, biopsy of intra-peritoneal nodules with Dr. Silver on
08/24.
A/P:
# Small Bowel Obstruction s/p diagnostic laparoscopy, SHANTA, appendectomy, biopsy of intra-peritoneal nodules on 08/24
Cont current LRD
Pt continues to c/o abd bloating and mild pain.
Monitor BM , cont current miralax , added Senokot-S
Pt reluctant to use additional BM regimen other than Miralax
Reglan added by GS, could continue for now but would NOT discharge on standing Reglan
Repeat AXR 09/07 showed resolution of stomach distension, and No acute radiographic abnormality in the abdomen
Pt has been cleared by GS for discharge.
Of note, path report of peritoneal fluid showed scattered atypical cells
CEA was negative, CA19-9 negative; Ca125 mildly elevated at 175
Onc on board, recc to follow up Onc outpt
CODE STATUS: Full code
DVT ppx: Lovenox
total time 51 min
[2025-09-07 14:09] LABS: CA 19-9 13 U/mL (<=35)
[2025-09-07 15:37] VITALS: BP 91/52
--- NOTE | 2025-09-07 16:46 | W.PN.ONC2 ---
Today's Communication / Plan
-
medical oncology will sign off. No further follow up is need. Please reach out with any further questions or concerns.
Impression
Impression
54 yo female presenting with N/V and abdominal pain
Small bowel obstruction
status post diagnostic laparoscopy, SHANTA, appendectomy, biopsy of intraperitoneal lymph nodes with Dr. Silver on 08/24 -pathology notable for atypical cells but nonspecific for malignancy. CEA and chromogranin A normal. CA125 elevated to 175
Plan
Plan
no further surgical work up planned with pathology negative for malignancy
no role for medical oncology with work up negative for malignancy discussed with pt
Subjective/Objective
Subjective
no new complaints
Vital Signs:
Vital Signs
Temp Pulse Resp BP Pulse Ox
97.9 F 68 16 91/52 98
09/07/25 15:37 09/07/25 15:37 09/07/25 15:37 09/07/25 15:37 09/07/25 15:37
Lab Results:
Laboratory Data
WBC 3.9 10^3/uL (4.8-10.8) L 09/07/25 07:42
Hgb 11.4 g/dL (12.0-16.0) L 09/07/25 07:42
Plt Count 336 10^3/uL (130-400) 09/07/25 07:42
eGFR > 60.00 09/07/25 07:42
Physical Exam
HEENT: Moist Mucous Membranes; No Jaundice
Pulmonary: Other (unlabored)
GI: Soft
Extremities: Pulses Present
Neuro: Non Focal
[2025-09-07] MEDS: LOVENOX 40 MG SC (17:09)
[2025-09-07] MEDS: REMOVE LIDOCAINE PATCH REMOVE (20:43)
[2025-09-07 23:43] VITALS: BP 90/55
[2025-09-08 03:36] VITALS: BMI 19.6
[2025-09-08] MEDS: PROTONIX 40 MG PO (07:25)
[2025-09-08] MEDS: VISBIOME 1 CAP PO (07:25)
[2025-09-08] MEDS: REGLAN 10 MG PO ×2 (07:25→12:35)
[2025-09-08] MEDS: SENOKOT-S 1 TABLET PO (07:25)
[2025-09-08] MEDS: MIRALAX 17 GRAMS PO (07:25)
[2025-09-08] MEDS: LIDOCAINE 4% PATCH TOPICAL (07:25)
[2025-09-08 07:30] VITALS: BP 105/50
--- NOTE | 2025-09-08 08:46 | W.PN.HOSP.TC ---
Today's Communication/Plan
-
dc today to home
Assessment / Plan
Assessment / Plan
Assessment - Ms. Dueñas is a 54-year-old female with PMHx significant for IBS/ileus (many years ago) is admitted to the hospital for abdominal distention, pain and nausea with dry heaving found small bowel obstruction s/p diagnostic laparoscopy, SHANTA,
appendectomy, biopsy of intra-peritoneal nodules with Dr. Silver on 08/24.
Plan-
# Small bowel obstruction s/p diagnostic laparoscopy on 08/24, postop day 15.
Underwent appendectomy, lysis of adhesions, biopsy of intraperitoneal nodules.
Surgery, Hem/Onc (re: atypical cells on cytology), and Nutrition following, GI recs as prior
Ensure drinks TID.
Abdominal XR 09/06 with Nonobstructive bowel gas pattern. Contrast from previous CT remains within the colon, decreased as compared with previous exam. Mild gaseous distention of the stomach, similar to prior. 09/07: No acute radiographic
abnormality in the abdomen. Stomach is no longer distended.
NG tube removed on 08/27, s/p 7 days currently on low residue diet.
TPN discontinued on 09/01.
PICC line discontinued on 09/02.
Probiotics, MiraLAX, Sennakot S, Colace, Suppository - 2 BMs ON 09/08.
Follow-up abdominal x-ray on 09/03's showed ileus, and transition of contrast to colon and rectum.
Biopsy results showed atypical cells in the peritoneum, uterine nodule ended up as leiomyoma, and negative for malignancy.
CA 19-9, CEA, chromogranin A levels normal. CA 125 elevated 175 08/29, 70.7 09/05. F/u with oncology OP.
Stool calprotectin greater than 3000, GI advised outpatient follow-up unless active issues.
Oral lozenges discontinued.
IV antibiotics discontinued on 08/25.
Multiple OTC supplements reviewed by pharmacist, discontinued.
BMI-
19.4, acute mild malnutrition from hospitalization-aspen criteria,
Currently on low-dose diet.
Hypokalemia-
Resolved
DVT prophylaxis-Lovenox
CODE STATUS-full code
Dispo: today to home
Anticipated Discharge: Today
Subjective/Interval History
-
Date of Service: September 08, 2025
- 2 BM ON, feeling similar to yesterday but okay to discharge per discussion with her and surgery.
Objective Data
-
Vital Signs:
Vital Signs
Temp Pulse Resp BP Pulse Ox
97.5 F 59 14 105/50 100
09/08/25 07:30 09/08/25 07:30 09/08/25 07:30 09/08/25 07:30 09/08/25 07:30
I&O
09/07/25 09/08/25 09/09/25
06:59 06:59 06:59
Intake Total 1260 / 1260 960 / 960
Balance 1260 / 1260 960 / 960
Physical Exam
-
General: Well Developed, Well Nourished and No Apparent Distress
HEENT: Normocephalic, Atraumatic and Moist Mucous Membranes
Respiratory: Clear to Auscultation
Cardiac: Regular Rhythm
GI: Soft, Nontender, Nondistended and Normal Bowel Sounds
Skin: Warm and Dry
Neuro: AO x 3
Psych: Calm
--- NOTE | 2025-09-08 09:44 | W.PN.SURGUPD ---
Surgical Update
Surgical Update
No changes from a surgical perspective. Continues to have some mild crampy abdominal pain and distention, however, overall tolerating a low residue diet and continues to have bowel movements. Previous SBFT with passage of contrast through through
the small bowel into the colon at an appropriate time without significant SB dilation. Repeat x-rays have not demonstrated significant bowel distention or obstruction, mild distention of the stomach. Likely slow recovery from a more chronic
obstructive process.
Discharge instructions updated. Outpatient follow-up in 2 to 4 weeks. Please call with questions or concerns.
--- NOTE | 2025-09-08 12:29 | W.PN.UPDATE ---
Update Note
Progress Note Update
I saw and evaluated the patient with the residents
HPI: 54-year-old female with PMH significant for IBS/ileus (many years ago), p/w abdominal distention, pain, nausea 2/2 small bowel obstruction s/p diagnostic laparoscopy, SHANTA, appendectomy, biopsy of intra-peritoneal nodules with Dr. Silver on
08/24.
A/P:
# Small Bowel Obstruction s/p diagnostic laparoscopy, SHANTA, appendectomy, biopsy of intra-peritoneal nodules on 08/24
Cont current LRD which pt is tolerating relatively well
Can cont with miralax and Senokot-S PRN for bowel regimen
Off Reglan
DC today
CODE STATUS: Full code
DVT ppx: Lovenox
total DC time 40 min
--- NOTE | 2025-09-08 13:04 | CM ---
entered order for discharge.
Pt offered VN she declined need.
She does live alone Her friend will drive her home at tx.
She will need out pt PT script Pt will set up own out pt PT after cleared by surgeon.
PT indicated no skilled needs.
PLAN Home no anticipated needs
--- NOTE | 2025-09-08 14:36 | W.DCSUMMARY ---
Documented by User: Alcides Giraldo MD, Resident 09/08/25 16:32
Discharge Summary
Discharge Data
Date of Admission: 08/18/25
Date of Discharge: 09/08/25
-
Pending Results: No
Hospital Course
Discharging Physician : Elsa Howard (Chen)
Disposition : Home
Principal Discharge diagnosis : Small Bowel Obstruction s/p diagnostic laparoscopy, SHANTA, appendectomy, biopsy of intra-peritoneal nodules on 08/24
Chronic Discharge diagnosis : NA
Hospital Course : 54 y/o female without significant past medical history but 50+ supplement list who presented with 4 days of abdominal pain, nausea and dry heaves. She had non-bloody diarrhea a few days prior to the 4 days but no recent episodes.
She reports fevers as high as 102F which have improved. However her abdominal distention and abdominal pain has persisted. CT A/P in ED showed loops of abnormal small bowel with wall thickening concerning for inflammation, infection, ischemia, and
developing obstruction could not be excluded. She was made NPO, admitted for further workup, and management. GI and general surgery was consulted, NGT was placed on 08/19 for a total of 7 days (dc'd on ) as AXR (below) showed ongoing severe small
bowel obstruction. She was started on TPN via PICC after diagnostic laparoscopy, SHANTA, appendectomy, biopsy of intra-peritoneal nodules on 08/[address] Silver. The etiology of her SBO was initially suspicious for infectious enteritis (s/p
Ciprofloxacin and Flagyl started 08/23, Flagyl changed from TID to BID 08/23 -- dc'd 08/25) vs malignancy, however these were ruled out per GI and hem/onc given Ca 19-9: 11wnl, CEA: 1.09wnl, Chromogranin A wnl, 75H CA 125, CMV micro neg, and appendix
path and nodule bx negative for malignancy. Her stool calprotectin was >3000 and GI recommended outpatient follow-up for IBD workup. Her post-op course was complicated by anxiety over certain foods and slow recovery of bowel to produce stool. SBFT
08/31 was without radiographic evidence of small bowel obstruction and rasheed AXR (below) showed resolution of SBO and bowel dilatation. Her TPN was dc'd on 09/01 and PICC removed on 09/02. 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
having BMs s/p Miralax, Sennakot S, and Colace. Nutrition was consulted and recommended discontinuing all supplements (50+) and just keeping on multivitamin and probiotic (per surgery). PT cleared her for home with VN, which she did not want. She
was medically ready for discharge on 09/08 with follow-up with PCP, GI, and General Surgery.
Important imaging findings :
AXR 08/21-small bowel obstruction with progression.
AXR 08/23-SEVERE AIR DISTENTION of JEJUNAL SMALL BOWEL LOOPS in the left side of the abdomen and central abdomen which appears unchanged compared with the recent prior radiographic and CT examinations 08/22/2025 and 08/21/2025 - most suggestive of a
SEVERE PARTIAL SMALL BOWEL OBSTRUCTION or ILEUS.Contrast material in the ascending and sigmoid colon which appears to have passed into the colon since 08/22/2025.
CT A/P w/ oral contrast 08/22: Small bowel obstruction. This appears high-grade with a discrete transition point in the lower abdomen at midline. Oral contrast remains within the stomach and proximal small bowel and does not pass through the
transition point.
Diffuse wall thickening of the more distal small bowel loops may be on the basis of an infectious or inflammatory enteritis.
AXR 08/31: No radiographic evidence of small bowel obstruction.
AXR 09/03: Non-obstructive bowel gas pattern. Oral contrast from prior study now within the distal colon and rectum.
AXR 09/06 - Nonobstructive bowel gas pattern. Contrast from previous CT remains within the colon, decreased as compared with previous exam. Mild gaseous distention of the stomach, similar to prior.
AXR 09/07- No acute radiographic abnormality in the abdomen. Stomach is no longer distended.
Discharge Plan
-
Patient Disposition: Home (Routine Discharge)
Discharge Diagnosis/Procedures: Laparoscopic lysis of adhesions and appendectomy
Condition: Good
Diet: Low Fiber
Additional Diets: Follow a low fiber or low residue diet. Dietary changes to be made as an outpatient after your follow-up.
Activity: No strenuous activity
Additional Activity: Do not lift over 20lbs for the next 2-3 weeks
Bathing Restrictions: OK to Shower
Wound Care: Allow the glue to flake off your incisions on its own over the next 2-3 weeks. Ok to wash gently with soap and water.
Activity Restrictions/Additional Instructions:
Call for fevers (>100.5), nausea or vomiting, worsening abdominal pain
Referrals:
Maxime Silver MD [Active, Surgical] - in two to four weeks
Ruma Loza DO [Family Provider, Family Practice] - in less than 1 week
Elmo Rosado OS [Non-Admitting Privileges, Gastroenterology] - in one month
Referral Note: elevated fecal calpro
Additional Discharge Medication Instructions: Take miralax once daily and Senna Plus twice daily
Prescriptions:
New
Lactobac/Bifidobac [Visbiome]
1 cap PO DAILY 30 Days Qty: 30 0RF
polyethylene glycol 3350 17 gram Powder In Packet
17 g PO DAILY 30 Days Qty: 30 0RF
sennosides-docusate sodium [Senna Plus] 8.6-50 mg Tablet
1 tab PO BID 30 Days Qty: 60 0RF
Discharge Orders:
Discharge Patient (As Directed); Ordered 09/08/25
Ordered By: Alcides Giraldo
Discharge Date and Time
Discharge Date/Time: 09/08/25 14:48
Print Language: ROMANIAN

Documented by User: Angi Chau MD 09/08/25 16:45
Discharge Summary
Discharge Data
Date of Admission: 08/18/25
Date of Discharge: 09/08/25
Hospital Course
Discharging Physician : Elsa Howard (Chen)
Disposition : Home
Principal Discharge diagnosis : Small Bowel Obstruction s/p diagnostic laparoscopy, SHANTA, appendectomy, biopsy of intra-peritoneal nodules on 08/24
Chronic Discharge diagnosis : NA
Hospital Course : 54 y/o female without significant past medical history but on 50+ supplements, presented with 4 days of abdominal pain, nausea and dry heaves.
Her admission CT A/P showed loops of abnormal small bowel with wall thickening concerning for inflammation, infection, ischemia, and developing obstruction.
NGT was placed on 08/19 and eventually discontinued on . She underwent diagnostic laparoscopy, SHANTA, appendectomy, biopsy of intra-peritoneal nodules on 08/[address] Silver. The cause of her small bowel obstruction was unclear. She did receive
antibiotic which was subsequently discontinued for suspected infectious enteritis.
There was also concern of malignancy, however her Ca 19-9 was within normal limits at 11, CEA within normal limits at 1.09, and CA 125 was only mildly elevated at 70.
Of note, her peritoneal fluid pathology report showed scattered atypical cells. She has been informed to follow-up with oncology closely following discharge.
At one point she was on TPN which was subsequently discontinued. Diet was slowly added back and she was able to tolerate low residue diet prior to discharge.
She can continue with bowel regimen with Senokot-S and MiraLAX as needed.
She has been informed to discontinue her prior to admission extensive supplements.
Important imaging findings :
AXR 08/21-small bowel obstruction with progression.
AXR 08/23-SEVERE AIR DISTENTION of JEJUNAL SMALL BOWEL LOOPS in the left side of the abdomen and central abdomen which appears unchanged compared with the recent prior radiographic and CT examinations 08/22/2025 and 08/21/2025 - most suggestive of a
SEVERE PARTIAL SMALL BOWEL OBSTRUCTION or ILEUS.Contrast material in the ascending and sigmoid colon which appears to have passed into the colon since 08/22/2025.
CT A/P w/ oral contrast 08/22: Small bowel obstruction. This appears high-grade with a discrete transition point in the lower abdomen at midline. Oral contrast remains within the stomach and proximal small bowel and does not pass through the
transition point.
Diffuse wall thickening of the more distal small bowel loops may be on the basis of an infectious or inflammatory enteritis.
AXR 08/31: No radiographic evidence of small bowel obstruction.
AXR 09/03: Non-obstructive bowel gas pattern. Oral contrast from prior study now within the distal colon and rectum.
AXR 09/06 - Nonobstructive bowel gas pattern. Contrast from previous CT remains within the colon, decreased as compared with previous exam. Mild gaseous distention of the stomach, similar to prior.
AXR 09/07- No acute radiographic abnormality in the abdomen. Stomach is no longer distended.
Discharge Plan
-
Patient Disposition: Home (Routine Discharge)
Discharge Diagnosis/Procedures: Laparoscopic lysis of adhesions and appendectomy
Condition: Good
Diet: Low Fiber
Additional Diets: Follow a low fiber or low residue diet. Dietary changes to be made as an outpatient after your follow-up.
Activity: No strenuous activity
Additional Activity: Do not lift over 20lbs for the next 2-3 weeks
Bathing Restrictions: OK to Shower
Wound Care: Allow the glue to flake off your incisions on its own over the next 2-3 weeks. Ok to wash gently with soap and water.
Activity Restrictions/Additional Instructions:
Call for fevers (>100.5), nausea or vomiting, worsening abdominal pain
Referrals:
Maxime Sliver MD [Active, Surgical] - in two to four weeks
Ruma Loza DO [Family Provider, Family Practice] - in less than 1 week
Elmo Rosado OS [Non-Admitting Privileges, Gastroenterology] - in one month
Referral Note: elevated fecal calpro
Additional Discharge Medication Instructions: Take miralax once daily and Senna Plus twice daily
Prescriptions:
New
Lactobac/Bifidobac [Visbiome]
1 cap PO DAILY 30 Days Qty: 30 0RF
polyethylene glycol 3350 17 gram Powder In Packet
17 g PO DAILY 30 Days Qty: 30 0RF
sennosides-docusate sodium [Senna Plus] 8.6-50 mg Tablet
1 tab PO BID 30 Days Qty: 60 0RF
Discharge Orders:
Discharge Patient (As Directed); Ordered 09/08/25
Ordered By: Alcides Giraldo
Discharge Date and Time
Discharge Date/Time: 09/08/25 14:48
Print Language: ROMANIAN
[2025-09-08 16:52] VITALS: BP 107/54
== END 2025-09-08 14:48 | disposition home or self-care (01) | DRG 336 ==
LOC: 3 WEST ACU 21:04
PROVIDERS: Hospitalist; Internal Medicine; Physician Assistant; Physician Assistant Medical; Radiology Vascular & Interventional Radiology; Registered Nurse; Student in an Organized Health Care Education/Training Program; Surgery; ADMITTING PHYSICIAN Hospitalist; ATTENDING PHYSICIAN Internal Medicine; CONSULT PHYSICIAN Internal Medicine Gastroenterology; EMERGENCY PHYSICIAN Student in an Organized Health Care Education/Training Program; FAMILY PHYSICIAN Family Medicine; OTHER PHYSICIAN Internal Medicine Hematology & Oncology; OTHER PHYSICIAN Surgery
PROC: 0D9670Z Drainage of Stomach with Drainage Device, Via Natural or Artificial Opening (ICD-10-PCS; 2025-08-19)
PROC: 0W9G4ZX Drainage of Peritoneal Cavity, Percutaneous Endoscopic Approach, Diagnostic (ICD-10-PCS; 2025-08-24)
PROC: 02HV33Z Insertion of Infusion Device into Superior Vena Cava, Percutaneous Approach (ICD-10-PCS; 2025-08-24)
PROC: 0DN84ZZ Release Small Intestine, Percutaneous Endoscopic Approach (ICD-10-PCS; 2025-08-24)
PROC: 0DTJ4ZZ Resection of Appendix, Percutaneous Endoscopic Approach (ICD-10-PCS; 2025-08-24)
PROC: 0UB94ZX Excision of Uterus, Percutaneous Endoscopic Approach, Diagnostic (ICD-10-PCS; 2025-08-24)
PROC: 3E0436Z Introduction of Nutritional Substance into Central Vein, Percutaneous Approach (ICD-10-PCS; 2025-08-25)
DX: K56.52 Intestinal adhesions [bands] with complete obstruction (principal); E44.1 Mild protein-calorie malnutrition; E87.1 Hypo-osmolality and hyponatremia; R18.8 Other ascites; Q43.8 Other specified congenital malformations of intestine; Z68.1 Body mass index [BMI] 19.9 or less, adult; K52.9 Noninfective gastroenteritis and colitis, unspecified; K36 Other appendicitis; L40.50 Arthropathic psoriasis, unspecified; D25.9 Leiomyoma of uterus, unspecified; E87.6 Hypokalemia; K21.9 Gastro-esophageal reflux disease without esophagitis; F41.9 Anxiety disorder, unspecified; D72.819 Decreased white blood cell count, unspecified; Z98.82 Breast implant status; Z88.1 Allergy status to other antibiotic agents; Z88.8 Allergy status to other drugs, medicaments and biological substances; Z87.410 Personal history of cervical dysplasia; Z22.4 Carrier of infections with a predominantly sexual mode of transmission; Z86.0101 Personal history of adenomatous and serrated colon polyps
CPT/HCPCS: 71045; 74018; 74022; 74177; 74250; 80048; 80053; 81003; 81015; 82378; 82533; 82962; 83605; 83690; 83735; 83993; 84100; 84443; 84478; 85025; 85027; 86301; 86304; 86316; 87045; 87046; 87254; 87324; 87427; 87449; 88112; 88304; 88305; 88341; 88342; 88360; 89055; 93005; 96361; 96374; 96375; 97163; 99285; Q9967